=== PATIENT | female | born 1955 | race Caucasian/White ===

== ENCOUNTER 2016-06-06 09:52 | Inpatient (IN) | payer OTHER ==
[~2016-06-06] VITALS: Ht 154.9 cm; Wt 65.0 kg
[2016-06-06] VITALS (29 sets, daily range): BP systolic 128–166; BP diastolic 60–98; PULSE 71–94; RESP 12–21; Ht 154.9 cm; Wt 65.0 kg
[~2016-06-06 09:52] MED LIST: ACET500C5 PO; ASPI-664 PO; IBUP400T22 PO; MTF1000T PO; NPH,100V SQ; NPH,100V10 SQ; QUIN10TA PO; SUCCINYLCHOLINE CHLORIDE 100 MG/5 ML SYG IV ONE
[2016-06-06] MEDS ORDERED: PROPOFOL 20 ML ONE (12:33)
[2016-06-06] MEDS ORDERED: MIDAZOLAM 1 MG/ML 2 ML INJ ONE (12:33)
[2016-06-06] MEDS ORDERED: CEFAZOLIN 1 GM INJ ONE (12:58)
[2016-06-06] MEDS ORDERED: ONDANSETRON 4 MG INJ ONE (12:59)
[2016-06-06] MEDS ORDERED: FAMOTIDINE 20 MG INJ ONE (12:59)
[2016-06-06] MEDS ORDERED: PHENYLephrine (100 MCG/ML) 5ML SYG ONE (13:02)
[2016-06-06] MEDS ORDERED: EPHEDrine SULFATE 50 MG/5 ML SYG ONE (13:21)
[2016-06-06] MEDS ORDERED: LABETALOL HCL 20MG INJ ONE (13:32)
[2016-06-06] MEDS ORDERED: D5W-0.45 NACL + KCL 20 MEQ 1,000 ML IV SCH (13:56)
[2016-06-06] MEDS ORDERED: ACETAMINOPHEN 1000MG/100ML IV 100 ML IVPB PRN (14:00)
[2016-06-06] MEDS ORDERED: ONDANSETRON 4 MG INJ IV PRN (14:00)
[2016-06-06] MEDS ORDERED: morphine 2 MG INJ IV PRN (14:00)
--- NOTE | 2016-06-06 14:15 | OPR ---
DATE OF OPERATION: 06/06/2016 PREOPERATIVE DIAGNOSIS: Locally advanced left breast cancer. POSTOPERATIVE DIAGNOSIS: Locally advanced left breast cancer. OPERATION PERFORMED: Left modified radical mastectomy. ANESTHESIA: General. ANESTHESIOLOGIST: Shun Graham DO SURGEON: Juan Pablo Tan MD BULK TRUCK DRIVER: Yayo Song MD INDICATIONS FOR PROCEDURE: The patient is a 61-year-old female who presented with a large mass in h er left breast. Workup including biopsy revealed a large cancer. The patient was offered neoadjuva nt chemotherapy, but did not wish to proceed in that fashion. Therefore, she was scheduled for left modified radical mastectomy and she consented. DESCRIPTION OF PROCEDURE: The patient was brought to the operating theater, placed under general en dotracheal tube anesthesia. The left breast and axillary region was prepped and draped in usual shana rile fashion. Planned elliptical incision around the large palpable mass including the nipple areol ar complex was demarcated with marking pen and carried out with 15 blade scalpel. Subcutaneous tiss ue was dissected with cautery. [place] clamps were used to elevate the skin edges and skin flap s were created sequentially using cautery, first to the clavicle superiorly then to the sternal bord er medially to the inframammary fold, inferiorly and laterally until latissimus dorsi muscle was antonio ntified throughout its course. Mastectomy then took place from medial to lateral using cautery. At the border of the pectoralis major muscle, the pectoralis muscle was identified and the clavipector al fascia was incised with blunt dissection along the chest wall. The long thoracic nerve was ident ified and kept out of harm's way. More superiorly, the axillary vein was identified and dissected f rom medial to lateral. Subsequently, the thoracodorsal neurovascular bundle was identified in its u sual anatomic location and kept out of harm's way. Node bearing tissue between the long thoracic ne rve and thoracodorsal nerve was meticulously harvested using the LigaSure device. Final connective tissue attachments at the latissimus dorsi muscle were then transected with cautery. Specimen was o riented and sent for permanent pathologic analysis. The wound was irrigated. Minimal bleeding was controlled with cautery. Two #10 flat Rafael-Dorado drains were then brought through the left mid a xillary line. One was cut to size and laid within the axilla, the other was laid over the pectorali s major muscle. Both drains were secured in place with 2-0 nylon suture in the standard fashion. T he final irrigation and inspection took place. Some redundant skin at the lateral aspect of the inc ision was excised and the skin was then closed with a deep dermal layer of 4-0 Vicryl sutures in int errupted fashion, followed by final skin approximation with 4-0 Vicryl sutures in subcuticular fashi on. Benzoin and Steri-Strips were then applied. The patient tolerated the procedure well. The est imated blood loss was 100 mL. There were no complications and the patient was transported in stable condition to the recovery room where circumferential compression wrap was applied. Dictated By: JUAN PABLO TAN MD TL/NTS Conf#: [id number] DID#: [id number] CC: YAYO SONG MD;*EndCC*
[2016-06-06] MEDS ORDERED: MEPERIDINE 25 MG INJ IV PRN (14:30)
[2016-06-06] MEDS ORDERED: HYDROmorphONE (0.2 MG/ML) 10ML SYG IV PRN ×2 (14:30)
[2016-06-06] MEDS ORDERED: PROCHLORPERAZINE 10 MG INJ IV PRN (14:30)
[2016-06-06] MEDS ORDERED: KETOROLAC 30 MG INJ IV ONE (14:30)
[2016-06-06] MEDS ORDERED: HALOPERIDOL 5 MG INJ IV PRN (14:30)
[2016-06-06] MEDS ORDERED: hydrALAzine 20 MG INJ IV PRN (14:30)
[2016-06-06] MEDS: INSULIN ASPART [NOVOLOG] 3 ML PEN SC SCH ×2 (17:55→21:48)
[2016-06-06] MEDS ORDERED: DEXTROSE 50% 50 ML SYRINGE IV PRN ×2 (18:00)
[2016-06-06] MEDS ORDERED: HYDROCODONE/APAP (5/325) TAB PO PRN (18:00)
[2016-06-06] MEDS ORDERED: GLUCOSE GEL 15 GRAM TUBE PO PRN ×2 (18:00)
[2016-06-06] MEDS ORDERED: GLUCAGON 1 MG INJ IM PRN (18:00)
[2016-06-06] MEDS ORDERED: GLUCOSE GEL 15 GRAM TUBE BUCCAL PRN (18:00)
--- NOTE | 2016-06-06 18:41 | HP ---
DATE OF ADMISSION: 06/06/2016 CHIEF COMPLAINT AND HISTORY OF PRESENT ILLNESS: The patient is a 61-year-old female with history of hypertension, diabetes and locally advanced left breast cancer. The patient was seen by Dr. Tan as an outpatient and was brought into hospital for left modified radical mastectomy. The patient po stoperatively has significant chest wall pain. The patient is being admitted for further evaluation and management. The patient denied any nausea, vomiting. No recent history of fever or chills. N o history of dysuria or hematuria, no history of headache, dizziness or syncope. No history of pare sthesias or weakness in any extremities. No history of acute skin rash or any joint swelling. REVIEW OF SYSTEMS: Were unremarkable. PAST SURGICAL HISTORY: None. ALLERGIES: NONE. FAMILY HISTORY: Patient's mother had stomach cancer. MEDICATIONS: List reviewed. PHYSICAL EXAMINATION: GENERAL: The patient is awake, alert. VITAL SIGNS: Temperature 97.9, pulse 88, blood pressure 150/72, O2 saturation 100% on room air, res pirations 16. HEENT: Conjunctivae and lids are normal. Oropharynx clear. NECK: Supple. No mass, no thyromegaly. LUNGS: Clear to auscultation. CARDIOVASCULAR: S1, S2 normal, no murmur. ABDOMEN: Soft, nondistended, nontender. Bowel sounds positive. EXTREMITIES: No leg edema. NEUROLOGIC: The patient is awake, alert, fairly oriented with no gross focal deficit. LABORATORY DATA: Sodium 136, potassium 4.5, BUN 13, creatinine 0.5, glucose 234. IMPRESSION: 1. Locally advanced left breast cancer status post modified radical mastectomy. 2. Hypertension. 3. Diabetes mellitus. PLAN: The patient admitted on medical floor. Patient will be started on Lantus as well as sliding scale insulin. The patient will be continued on metformin. We will also continue МАРИНА inhibitor. S CD for DVT prophylaxis. The patient will be started on Tylenol, [place] and IV morphine for pain cont rol, depending upon severity. Plan of care discussed with the patient's nurse. Dictated By: SONA WINSLOW/NTS Conf#: [id number] DID#: [id number]
[2016-06-06] MEDS: metFORMIN 500 MG TAB PO SCH (18:57)
[2016-06-06] MEDS: 1/2 NS + KCL 20 MEQ 1,000 ML IV SCH (18:57)
[2016-06-06] MEDS ORDERED: NPH, HUMAN INSULIN ISOPHANE 3ML VIAL SC SCH (21:00)
[2016-06-06] MEDS: INSULIN GLARGINE [LANtus] 3 ML PEN SC SCH (21:48)
[2016-06-07 00:05] VITALS: BP 150/65; PULSE 87; RESP 20
[2016-06-07] MEDS ORDERED: ACCUCHECK XX SCH (02:00)
[2016-06-07 05:23] LABS: ADD SCAN DIFF NO
[2016-06-07 05:33] LABS: BASOPHIL # 0.1 10^3/ul (0.0-0.1); BASOPHILS % 0.5 % (0.0-2.0); EOSINOPHILS # 0.3 10^3/ul (0.0-0.5); EOSINOPHILS % 2.4 % (0.0-7.0); HEMATOCRIT 35.4 % (37.0-47.0); HEMOGLOBIN 12.1 g/dl (12.0-16.0); LYMPHOCYTES # 3.3 10^3/ul (0.8-2.9); MEAN CORPUSCULAR HEMOGLOBIN 29.3 pg (29.0-33.0); MEAN CORPUSCULAR HGB CONC 34.2 g/dl (32.0-37.0); MEAN CORPUSCULAR VOLUME 85.7 fl (82.0-101.0); MEAN PLATELET VOLUME 11.2 fl (7.4-10.4); MONOCYTE # 0.6 10^3/ul (0.3-0.9); MONOCYTES % 5.7 % (0.0-11.0); NEUTROPHIL # 6.7 10^3/ul (1.6-7.5); NEUTROPHILS % 61.1 % (39.0-77.0); PLATELET COUNT 209 10^3/UL (140-415); RED BLOOD COUNT 4.13 10^6/ul (4.20-5.40); RED CELL DISTRIBUTION WIDTH 12.2 % (11.5-14.5); WHITE BLOOD COUNT 10.9 10^3/ul (4.8-10.8)
[2016-06-07 05:43] VITALS: BP 116/66; PULSE 77; RESP 18
[2016-06-07 05:52] LABS: POTASSIUM 4.2 mmol/L (3.5-5.1)
[2016-06-07 05:55] LABS: CREATININE 0.49 mg/dl (0.44-1.00)
[2016-06-07 05:56] LABS: CALCIUM 8.8 mg/dl (8.4-10.2)
[2016-06-07 07:00] VITALS: BP 115/59; RESP 18
[2016-06-07] MEDS: 1/2 NS + KCL 20 MEQ 1,000 ML IV SCH ×2 (08:50→20:40)
[2016-06-07] MEDS: metFORMIN 500 MG TAB PO SCH ×2 (08:56→18:06)
[2016-06-07] MEDS ORDERED: BENAZEPRIL 20 MG TAB PO SCH (09:00)
[2016-06-07] MEDS ORDERED: ASPIRIN (EC) 81 MG TAB PO SCH (09:00)
[2016-06-07] MEDS: INSULIN ASPART [NOVOLOG] 3 ML PEN SC SCH ×4 (09:05→21:16)
--- NOTE | 2016-06-07 14:04 | PN ---
DATE: 06/07/2016 Today is postop day #1, postop left modified radical mastectomy with axillary dissection SUBJECTIVE: The patient does not have that much of complaint from the chest, but she is having some pain in right upper quadrant. No nausea, no vomiting. Tolerated diet. OBJECTIVE: VITAL SIGNS: Temperature 98.7, heart rate 80, respirations 18, blood pressure 115/59, saturation 97 % on room air. Rafael-Dorado drain #1 has drained 180 mL, #2 has drained 120 mL since operation. It is colorless, serosanguineous. HEART: Regular. LUNGS: Clear. CHEST: The dressing is not that tight. ABDOMEN: Soft. Right upper quadrant, mariana is some tenderness on deep pressure (probably positive M urphy sign). EXTREMITIES: No pitting edema, no calf tenderness. ASSESSMENT: A 61-year-old with modified radical mastectomy and axillary dissection for locally adva nced cancer of the left breast, stable today complaining of right upper quadrant abdominal pain. PLAN: We are going to get a stat ultrasound of the right upper quadrant to make sure the patient do es not have cholecystitis. If that resolves, patient can be discharged home today and follow up wit h Dr. Tan in his office. The patient will be instructed by the nurses how to empty the Rafael-Pr att and how to measure the drainage and record it on a piece of paper every night or whenever it is needed to be done. When she goes back to Dr. Tan' office, to take the detailed recording of the d rainage. Dictated By: DEEPA ARZOLA/MANDY Conf#: [id number] DID#: [id number]
--- NOTE | 2016-06-07 17:55 | PN ---
Date/Time of Note Date/Time of Note DATE: 06/07/16 TIME: 17:51 Assessment/Plan VTE Prophylaxis VTE Prophylaxis Intervention: SCD's Lines/Catheters [facility] Peripheral IV Urinary Cath still in place: No Assessment/Plan Assessment/Plan 1. Locally advanced left breast cancer status post modified radical mastectomy. 2. Hypertension. Continue benazepril 3. Diabetes mellitus. Continue metformin, Lantus and NovoLog. 4. Abdominal pain, pending abdominal ultrasound. Further recommendations based on clinical course. Plan of care discussed Dr. Costa. Subjective 24 Hr Interval Summary Free Text/Dictation Patient's complains of abdominal pain, pending abdominal ultrasound. Patient denies any nausea vomiting. Exam/Review of Systems Vital Signs Vitals Vital Signs Date Time Temp Pulse Resp B/P Pulse Ox O2 Delivery O2 Flow Rate FiO2 06/07/16 07:00 98.7 80 18 115/59 97 06/07/16 05:43 Room Air 06/07/16 00:05 2.0 Intake and Output 06/06/16 06/06/16 06/07/16 15:00 23:00 07:00 Intake Total 1200 ml 1120 ml Output Total 90 ml 170 ml 90 ml Balance 1110 ml -170 ml 1030 ml Exam GENERAL: The patient is awake, alert. HEENT: Conjunctivae and lids are normal. NECK: Supple. No mass, no thyromegaly. LUNGS: Clear to auscultation. CARDIOVASCULAR: S1, S2 normal, no murmur. ABDOMEN: Soft, nondistended, nontender. Bowel sounds positive. EXTREMITIES: No leg edema. NEUROLOGIC: The patient is awake, alert. Results Result Diagram: 06/07/16 0425 06/07/16 0445 Results 24 hrs Laboratory Tests Test 06/06/16 21:44 06/07/16 01:58 06/07/16 04:25 06/07/16 04:45 Bedside Glucose 303 H 187 Basophils # 0.1 Basophils % 0.5 Eosinophils # 0.3 Eosinophils % 2.4 Hematocrit 35.4 L Hemoglobin 12.1 Lymphocytes # 3.3 H Lymphocytes % 30.0 Mean Corpuscular Hemoglobin 29.3 Mean Corpuscular Hemoglobin Concent 34.2 Mean Corpuscular Volume 85.7 Mean Platelet Volume 11.2 H Monocytes # 0.6 Monocytes % 5.7 Neutrophils # 6.7 Neutrophils % 61.1 Nucleated Red Blood Cells # 0.0 Nucleated Red Blood Cells % 0.0 Platelet Count 209 Red Blood Count 4.13 L Red Cell Distribution Width 12.2 White Blood Count 10.9 H Anion Gap 13 Blood Urea Nitrogen 9 Calcium Level 8.8 Carbon Dioxide Level 27 Chloride Level 104 Creatinine 0.49 Glucose Level 162 Potassium Level 4.2 Sodium Level 140 Test 06/07/16 08:49 06/07/16 11:46 Bedside Glucose 171 267 H Medications Medications Current Medications Ondansetron HCl (Zofran Inj) 4 mg Q6H PRN IV NAUSEA AND/OR VOMITING Last administered on 06/06/16 15:09; Admin Dose 4 MG; Start 06/06/16 at 14:00 Morphine Sulfate 2 mg 2 mg Q1H PRN IV PAIN; Start 06/06/16 at 14:00 Acetaminophen 100 ml @ 400 mls/hr Q6H PRN IVPB PAIN; Start 06/06/16 at 14:00 Potassium Chloride/Sodium Chloride (1/2 NS + KCl 20 Meq) 1,000 ml @ 75 mls/hr [id number] IV Last administered on 06/07/16 08:50; Admin Dose 75 MLS/HR; Start at 18:00 Aspirin (Halfprin) 81 mg DAILY PO Last administered on 06/07/16 08:56; Admin Dose 81 MG; Start 06/07/16 at 09:00 Benazepril HCl (Lotensin) 20 mg DAILY PO Last administered on 06/07/16 08:57; Admin Dose 20 MG; Start 06/07/16 at 09:00 Miscellaneous Information 1 ea NOTE XX ; Start 06/06/16 at 18:00 Glucose (Glutose) 15 gm Q15M PRN PO DECREASED GLUCOSE; Start 06/06/16 at 18:00 Glucose (Glutose) 22.5 gm Q15M PRN PO DECREASED GLUCOSE; Start 06/06/16 at 18: 00 Dextrose (D50w Syringe) 25 ml Q15M PRN IV DECREASED GLUCOSE; Start 06/06/16 at 18:00 Dextrose (D50w Syringe) 50 ml Q15M PRN IV DECREASED GLUCOSE; Start 06/06/16 at 18:00 Glucagon (Glucagen) 1 mg Q15M PRN IM DECREASED GLUCOSE; Start 06/06/16 at 18:00 Glucose (Glutose) 15 gm Q15M PRN BUCCAL DECREASED GLUCOSE; Start 06/06/16 at 18 :00 Insulin Glargine (Lantus) 30 unit DAILY@20 SC Last administered on 06/06/16 21 :48; Admin Dose 30 UNIT; Start 06/06/16 at 20:00 Diagnostic Test (Pha) (Accucheck) 1 ea 02 XX Last administered on 06/07/16 02: 10; Admin Dose 1 EA; Start 06/07/16 at 02:00 Acetaminophen/ Hydrocodone Bitart ([place] (5/325)) 1 tab Q4H PRN PO PAIN LEVEL 4 -6; Start 06/06/16 at 18:00 CYNTHIA LAGUNAS Jun 07, 2016 17:55
--- NOTE | 2016-06-07 18:03 | RADRPT ---
PROCEDURE: US Abdomen (right upper quadrant). CLINICAL INDICATION: Right upper quadrant abdomen pain. TECHNIQUE: Multiple real-time longitudinal and transverse images of the right upper quadrant of th e abdomen were acquired utilizing a curved array transducer. Images were reviewed on a high-resoluti on PACS workstation. COMPARISON: None FINDINGS: The liver is normal in size and echogenicity. There is no focal hepatic lesion. Color Doppler and pulsed Doppler sonography demonstrate normal an tegrade flow in the portal vein. The gallbladder is normal with no stones or wall thickening. There is no pericholecystic fluid franco ection. The bile ducts are normal with the common bile duct measuring 4.6 mm in diameter. The visualized portions of the pancreas are unremarkable with obscuration of the tail of the pancrea s. No free fluid is present. The right kidney measures 10.1 cm. There is normal echogenicity of the right kidney. There is no perinephric fluid collection. No hydronephrosis, mass, or calculus is seen. IMPRESSION: 1. Unremarkable right upper quadrant abdomen ultrasound. RPTAT: QQ .Twan Sierra MD, MD Date Time Electronically viewed and signed by .Twan Sierra MD, on 06/07/2016 18:03 .R/
[2016-06-07] MEDS: INSULIN GLARGINE [LANtus] 3 ML PEN SC SCH (21:17)
--- NOTE | 2016-06-09 21:17 | DS ---
DATE OF ADMISSION: 06/06/2016 DATE OF DISCHARGE: 06/07/2016 FINAL DIAGNOSES: 1. Locally advanced breast cancer status post modified radical mastectomy. 2. Hypertension. 3. Diabetes mellitus. BRIEF HISTORY: The patient is a 61-year-old female with history of hypertension, diabetes, locally advanced left breast cancer. The patient was seen by Dr. Tan as an outpatient and brought to the hospital for left modified radical mastectomy. Postoperative, the patient experienced some signific ant pain and was admitted for further evaluation and management. HOSPITAL COURSE: The patient was given Tylenol, morphine, and [place] p.r.n. for pain and Zofran for nausea. The patient was given Lantus and insulin according to sliding scale, NovoLog insulin. The patient's blood pressure was well controlled. The patient complained of some abdominal pain and gal lbladder ultrasound was ordered by surgeon, which was unremarkable ultrasound of right upper quadran t abdominal. The patient's condition improved. The patient was able to tolerate diet. Denied any nausea or vomiting. Pain was well controlled and patient was discharged home. CONDITION ON DISCHARGE: Hemodynamically stable. ACTIVITY: As patient tolerates. No lifting more than 25 pounds for 6 weeks. DISCHARGE DIET: 1800 ADA, 2 g sodium, low fat, low cholesterol diet. DISCHARGE MEDICATIONS: 1. The patient was given prescriptions for [place] p.r.n. for pain. 2. The patient is to continue on her home medication of metformin. 3. NPH insulin. 4. Quinapril. 5. Aspirin. FOLLOWUP: The patient is instructed to follow up with Dr. Tan in postoperative appointment next w [place]. Interdisciplinary plan of care was established for this patient. Plan of care was discussed with Dr Masoud Go. Dictated By: CYNTHIA LAGUNAS REJOGGER for SONA GO MD SR/NTS Conf#: [id number] DID#: [id number] CC: SHANON TAN MD;*EndCC*
== END 2016-06-07 21:45 | disposition home or self-care (01) | DRG 583 ==
LOC: REC 09:52 → EDSTATUS 12:30 → MS1 16:45
PROVIDERS: ADMIT Surgery Surgical Oncology; ATTEND Surgery Surgical Oncology
PROC: 0HTU0ZZ Resection of Left Breast, Open Approach (ICD-10-PCS; principal; 2016-06-06 12:30)
DX: C50.912 Malignant neoplasm of unspecified site of left female breast (principal); I10 Essential (primary) hypertension; G89.18 Other acute postprocedural pain; E11.9 Type 2 diabetes mellitus without complications
CPT/HCPCS: 76705; 80048; 82962; 85025; 88307; J0330; J0360; J0690; J1170; J1815; J1885; J2250; J2370; J2405; J3010; J3480

== ENCOUNTER 2016-06-21 18:56 | Emergency (ER) | payer OTHER ==
[~2016-06-21] VITALS: Ht 154.9 cm; Wt 65.5 kg
[~2016-06-21 18:56] MED LIST changes: -SUCCINYLCHOLINE CHLORIDE 100 MG/5 ML SYG IV ONE
[2016-06-21 19:01] VITALS: Ht 154.9 cm; Wt 65.5 kg
[2016-06-21] MEDS ORDERED: CEFTRIAXONE 1 GM INJ IM ONE (20:30)
[2016-06-21] MEDS ORDERED: LIDOCAINE 1% (MDV) 20 ML INJ SC ONE (20:30)
[2016-06-21] MEDS ORDERED: IBUPROFEN 600 MG TAB PO ONE (20:30)
[2016-06-21] MEDS ORDERED: HYDROCODONE/APAP (5/325) TAB PO ONE (20:30)
[2016-06-21] MEDS ORDERED: TRIMETHOPRIM/SULFAMETHOX (DS) TAB PO ONE (20:30)
[2016-06-21] MEDS ORDERED: CEPH-443 PO (21:00)
[2016-06-21] MEDS ORDERED: BACTDS PO (21:00)
[2016-06-21] MEDS ORDERED: HYDR-906 PO (21:00)
--- NOTE | 2016-06-21 21:05 | ERD ---
ER Documentation Chief Complaint Date/Time DATE: 06/21/16 TIME: 21:03 Chief Complaint sp left mastectomy 2 weeks ago, c/o pain on left operative site x2 days HPI 7-year-old female presents with redness and some pain to the left mastectomy wound performed [address] Tan. She denies fevers, vomiting, shortness breath or chest pain. She notes the redness and increased pain over the last 2 days. ROS All systems reviewed and are negative except as per history of present illness. Medications Home Meds Active Scripts Cephalexin* (Keflex*) 500 Mg Capsule, 500 MG PO QID for 7 Days, CAP Prov:THUAN BARTHOLOMEW MD 06/21/16 Sulfamethoxazole-Trimethoprim* (Bactrim* DS) 800-160 Mg Tab, 1 TAB PO BID for 7 Days, TAB Prov:THUAN BARTHOLOMEW MD 06/21/16 Hydrocodone/Acetaminophen ([place] 5-325 Tablet) 1 Each Tablet, 1 TAB PO Q6H Y for PAIN, #14 TAB Prov:THUAN BARTHOLOMEW MD 06/21/16 Acetaminophen* (Tylophen*) 500 Mg Capsule, 1 CAP PO Q6H Y for PAIN AND OR ELEVATED TEMP, #20 CAP Prov:MARLEY URBANO 11/19/14 Ibuprofen* (Motrin*) 400 Mg Tab, 400 MG PO Q6 Y for PAIN AND/OR INFLAMMATION, # 20 TAB Prov:MARLEY URBANO 11/19/14 Reported Medications Quinapril Hcl (Accupril) 10 Mg Tablet, 20 MG PO DAILY 06/28/13 Aspirin (Aspirin) 81 Mg Tablet.dr, 81 MG PO DAILY 06/28/13 Nph, Human Insulin Isophane* (Novolin N*) 100 U/Ml Vial, 20 SQ BID, VIAL 06/28/13 Nph, Human Insulin Isophane (Humulin N) 100 Units/Ml Vial, 15 SQ BID, VIAL 06/28/13 Metformin* (Glucophage*) 1,000 Mg Tablet, 1000 MG PO BID 06/28/13 Allergies Allergies: Coded Allergies: No Known Allergies (Unverified Allergy, 06/28/13) PMhx/Soc History of Surgery: Yes (L mastectomy may 2016) Anesthesia Reaction: No Hx Neurological Disorder: No Hx Respiratory Disorders: No Hx Cardiac Disorders: No Hx Psychiatric Problems: No Hx Miscellaneous Medical Probl: Yes (breast CA) Hx Alcohol Use: No Hx Substance Use: No Hx Tobacco Use: No Smoking Status: Never smoker Physical Exam Vitals Vital Signs Date Time Temp Pulse Resp B/P Pulse Ox O2 Delivery O2 Flow Rate FiO2 06/21/16 19:01 99.8 101 20 138/65 98 Physical Exam Const: [] Alert, [id number]. Head: Atraumatic Eyes: Normal Conjunctiva ENT: Normal External Ears, Nose and Mouth. Neck: Full range of motion..~ No meningismus. Resp: Clear to auscultation bilaterally Cardio: Regular rate and rhythm, no murmurs Abd: Soft, non tender, non distended. Normal bowel sounds Skin: No petechiae or rashes. His healing left mastectomy wound with some surrounding redness at the wound edges and extending superiorly on the medial portion of the wound.. There is no dehiscence or active discharge or bleeding or fluctuance. Back: No midline or flank tenderness Ext: No cyanosis, or edema Neur: Awake and alert Psych: Normal Mood and Affect Results 24 hrs Current Medications Medications (Trade) Dose Ordered Sig/Sheila Route PRN Reason Start Time Stop Time Status Last Admin Dose Admin Ceftriaxone Sodium (Rocephin) 1 gm ONCE ONCE IM 06/21/16 20:30 06/21/16 20:31 DC 06/21/16 20:46 Lidocaine (Xylocaine 1% (Mdv) 20 ml) 20 ml ONCE ONCE SC 06/21/16 20:30 06/21/16 20:31 DC 06/21/16 20:46 Ibuprofen (Motrin) 600 mg ONCE ONCE PO 06/21/16 20:30 06/21/16 20:31 DC 06/21/16 20:46 Trimethoprim/ Sulfamethoxazole (Bactrim (Ds)) 1 tab ONCE ONCE PO 06/21/16 20:30 06/21/16 20:31 DC 06/21/16 20:47 Acetaminophen/ Hydrocodone Bitart ([place] (5/325)) 1 tab ONCE ONCE PO 06/21/16 20:30 06/21/16 20:31 DC 06/21/16 20:47 Procedures/MDM Patient presents with signs and symptoms of worsening redness and pain over last 2 days of her left mastectomy performed 2 weeks ago. She appears to have a postoperative wound infection which appears superficial. She was given Rocephin 1 g IM and Bactrim double strength by mouth as well as [place] 5 mg by mouth for pain. She will discharged home with prescription of Bactrim and Keflex and [place] and instructions to follow-up with Dr. Tan as scheduled in the next 2-3 days. Patient should return sooner for fevers, vomiting, shortness breath, chest pain, new or worsening symptoms. There is no evidence of abscess or signs or symptoms to suggest sepsis, acute abdomen, pneumonia, additional causes of pain and redness of the chest wall. Departure Diagnosis: Primary Impression: Post op infection Condition: Stable Patient Instructions: Post Op Wound Check, Infection Additional Instructions: CHEQUE CON MCKEON MIKI ADKINS MAS PRONTO PARA FIEBRE , NUEVA SIMPTOMAS. THUAN BARTHOLOMEW MD Jun 21, 2016 21:05
[2016-06-21 21:42] VITALS: BP 121/57; PULSE 81; RESP 18; TEMP 99
== END 2016-06-21 21:45 | disposition home or self-care (01) ==
LOC: FTE 18:56
DX: T81.4XXA Infection following a procedure, initial encounter (principal); Y82.8 Other medical devices associated with adverse incidents; Z85.3 Personal history of malignant neoplasm of breast; Z79.82 Long term (current) use of aspirin; Z79.84 Long term (current) use of oral hypoglycemic drugs; Z79.4 Long term (current) use of insulin
CPT/HCPCS: 96372; J0696; Z7502; Z7610

== ENCOUNTER 2016-06-27 13:23 | Inpatient (IN) | payer OTHER ==
[2016-06-26] MEDS: SOD CHLORIDE 0.9% 1,000 ML IV SCH (16:30)
[2016-06-27] VITALS (15 sets, daily range): BP systolic 112–162; BP diastolic 56–73; PULSE 70–80; RESP 14–22; Ht 152.4 cm; Wt 63.0 kg
[~2016-06-27] VITALS: Ht 152.4 cm; Wt 63.0 kg
[2016-06-27] MEDS: SOD CHLORIDE 0.9% 1,000 ML IV SCH (05:50)
[~2016-06-27 13:23] MED LIST changes: +BACTDS PO; +CEFAZOLIN 2 GM/50 ML (PMX) 50 ML IVPB SCH; +CEPH-443 PO; +HYDR-906 PO
[2016-06-27 15:05] LABS: ADD SCAN DIFF NO
[2016-06-27 15:13] LABS: INR 1.07; PROTIME 13.9 Sec (12.2-14.2); PT RATIO 1.1
[2016-06-27 15:14] LABS: PARTIAL THROMBOPLASTIN TIME 28.9 Sec (25.0-35.0)
[2016-06-27 15:18] LABS: CREATININE 0.61 mg/dl (0.44-1.00)
[2016-06-27 15:19] LABS: POTASSIUM 5.1 mmol/L (3.5-5.1)
--- NOTE | 2016-06-27 15:30 | RADRPT ---
PROCEDURE: XR Chest. CLINICAL INDICATION: Preoperative study TECHNIQUE: Single AP view of the chest were obtained COMPARISON: None FINDINGS: The heart and mediastinum are within normal limits. The pulmonary vasculature are unremarkable. The aorta is grossly unremarkable. There is no lung consolidation, pleural effusion or pneumothorax. Degenerative changes are seen within the thoracic spine. There is no acute osseous abnormality. IMPRESSION: No acute disease. RPTAT: AA .Shabbir Rodríguez MD, MD Date Time Electronically viewed and signed by .Shabbir Rodríguez MD, MD on 06/27/2016 15:30 .Jeannine/
[2016-06-27 15:39] LABS: BASOPHIL # 0.1 10^3/ul (0.0-0.1); BASOPHILS % 0.6 % (0.0-2.0); EOSINOPHILS # 0.1 10^3/ul (0.0-0.5); EOSINOPHILS % 0.9 % (0.0-7.0); HEMATOCRIT 37.4 % (37.0-47.0); HEMOGLOBIN 12.9 g/dl (12.0-16.0); LYMPHOCYTES % 21.8 % (15.0-51.0); MEAN CORPUSCULAR HEMOGLOBIN 29.3 pg (29.0-33.0); MEAN CORPUSCULAR HGB CONC 34.5 g/dl (32.0-37.0); MEAN PLATELET VOLUME 9.1 fl (7.4-10.4); MONOCYTE # 0.6 10^3/ul (0.3-0.9); MONOCYTES % 6.4 % (0.0-11.0); NEUTROPHIL # 6.3 10^3/ul (1.6-7.5); NEUTROPHILS % 69.9 % (39.0-77.0); PLATELET COUNT 431 10^3/UL (140-415); WHITE BLOOD COUNT 8.9 10^3/ul (4.8-10.8)
[2016-06-27] MEDS ORDERED: PROCHLORPERAZINE 10 MG INJ IV PRN (16:00)
[2016-06-27] MEDS ORDERED: FENTAnyl 50 MCG/ML VIAL IV PRN (16:00)
[2016-06-27] MEDS ORDERED: OXYCODONE/ACETAMINOPHEN (5/325) TAB PO PRN ×2 (16:00)
[2016-06-27] MEDS ORDERED: KETOROLAC 30 MG INJ IV ONE (16:00)
[2016-06-27] MEDS ORDERED: ONDANSETRON 4 MG INJ IV PRN ×2 (16:00→19:30)
[2016-06-27] MEDS ORDERED: INSULIN ASPART [NOVOLOG] 3 ML PEN SC ONE (16:00)
[2016-06-27] MEDS ORDERED: LABETALOL HCL 20MG INJ IV PRN (16:00)
[2016-06-27] MEDS ORDERED: HYDROmorphONE (0.2 MG/ML) 10ML SYG IV PRN ×2 (16:00)
[2016-06-27] MEDS ORDERED: MEPERIDINE 25 MG INJ IV PRN (16:00)
[2016-06-27] MEDS ORDERED: hydrALAzine 20 MG INJ IV PRN (16:00)
[2016-06-27] MEDS ORDERED: DIPHENHYDRAMINE 50 MG INJ IV PRN (16:00)
[2016-06-27] MEDS ORDERED: MIDAZOLAM 1 MG/ML 2 ML INJ ONE (16:49)
[2016-06-27] MEDS ORDERED: LIDOCAINE 2% (SDV) 5 ML INJ ONE (16:49)
[2016-06-27] MEDS ORDERED: PROPOFOL 20 ML ONE (16:49)
[2016-06-27] MEDS ORDERED: FENTAnyl 50 MCG/ML VIAL ONE (16:50)
[2016-06-27] MEDS ORDERED: ONDANSETRON 4 MG INJ ONE (18:43)
[2016-06-27] MEDS ORDERED: METOCLOPRAMIDE 10 MG INJ ONE (18:43)
[2016-06-27] MEDS ORDERED: D5W-0.45 NACL + KCL 20 MEQ 1,000 ML IV SCH (19:05)
--- NOTE | 2016-06-27 19:27 | OPR ---
DATE OF OPERATION: 06/27/2016 PREOPERATIVE DIAGNOSIS: Left chest wall/wound abscess. POSTOPERATIVE DIAGNOSIS: Left chest wall/wound abscess. OPERATION PERFORMED: I and D of left chest wall/wound abscess. ANESTHESIA: General. ANESTHESIOLOGIST: Vida Gómez MD SURGEON: Juan Pablo Tan MD MASTER RIGGER: None. INDICATIONS FOR PROCEDURE: The patient is an unfortunate 61-year-old female who was recently treate d for relatively advanced left breast cancer. She had comorbidity of diabetes, and she presented ap proximately 10 days postop with evidence of a wound infection associated with a chest wall abscess. She was counseled as to need for surgical drainage. She consented and was scheduled for surgery. DESCRIPTION OF PROCEDURE: The patient was brought to the operating theater, placed under general an esthesia. The left chest wall was prepped and draped in usual sterile fashion. The medial aspect o f previous surgical incision was incised. Copious amounts of pus were obtained. The cavity was suc tion evacuated. Counterincision was made laterally, and irrigation of the entire wound cavity took place with a combination of hydrogen peroxide and Betadine. Please note that prior to irrigation, w ound cultures were taken. At this point, a Luis drain was brought through the wound and sutured to itself. The patient tolerated procedure well. The estimated blood loss was 10 mL. There were n o complications. The patient was transported in stable condition to recovery room, where circumfere ntial compression dressing was applied. Dictated By: JUAN PABLO TAN MD TL/NTS Conf#: [id number] DID#: [id number]
[2016-06-27] MEDS ORDERED: morphine 2 MG INJ IV PRN (19:30)
[2016-06-27] MEDS: SOD CHLORIDE 0.45% 1,000 ML IV SCH (22:19)
[2016-06-27] MEDS ORDERED: GLUCOSE GEL 15 GRAM TUBE BUCCAL PRN (22:30)
[2016-06-27] MEDS ORDERED: GLUCAGON 1 MG INJ IM PRN (22:30)
[2016-06-27] MEDS ORDERED: DEXTROSE 50% 50 ML SYRINGE IV PRN ×2 (22:30)
[2016-06-27] MEDS ORDERED: GLUCOSE GEL 15 GRAM TUBE PO PRN ×2 (22:30)
[2016-06-28 00:01] VITALS: BP 132/61; RESP 18
[2016-06-28] MEDS: ACETAMINOPHEN 1000MG/100ML IV 100 ML IVPB PRN ×2 (00:32→10:16)
[2016-06-28] MEDS: PIPER-TAZO 3.375 GM IV (PMX) 100 ML IVPB SCH ×3 (01:18→17:49)
[2016-06-28 05:00] VITALS: BP 148/69; PULSE 74; RESP 18
[2016-06-28 07:22] VITALS: BP 134/63; RESP 18
[2016-06-28] MEDS: SOD CHLORIDE 0.45% 1,000 ML IV SCH ×2 (08:30→17:21)
[2016-06-28] MEDS: INSULIN ASPART [NOVOLOG] 3 ML PEN SC SCH ×4 (08:38→20:40)
[2016-06-28] MEDS ORDERED: INFLUENZA VIRUS VACCINE 0.5 ML (DISPENSING) IM* ONE (09:00)
[2016-06-28] MEDS: DOCUSATE SODIUM 100 MG CAP PO SCH ×2 (10:56→20:37)
--- NOTE | 2016-06-28 12:27 | PN ---
DATE: 06/28/2016 Status post incision and drainage of the chest wall abscess following modified radical mastectomy ab out 2 weeks ago. SUBJECTIVE: Feels better. OBJECTIVE: VITAL SIGNS: Temperature 97.9, 62, 18, 134/73, 97% room air saturation. The dressing was already removed because it was saturated There is no active bleeding. A new steri le dressing was applied and taped to the chest wall. Also, another culture was sent from the distal end of the wound. The [place] drain is in place. ASSESSMENT: Postop day #1, status post incision and drainage of chest wall wound and abscess post mastectomy. PLAN: 1. Continue antibiotics. 2. Keep the patient in house with IV antibiotics. 3. Change dressing p.r.n. and daily. Dictated By: DEEPA ARZOLA/NTS Conf#: [id number] DID#: [id number]
--- NOTE | 2016-06-28 14:08 | HP ---
DATE OF ADMISSION: 06/27/2016 HISTORY OF PRESENT ILLNESS: The patient is a 61-year-old female, known to me from a previo us admission. The patient underwent a left modified radical mastectomy on 06/06/2016. The patient also has a history of diabetes, hypertension and locally advanced left breast cancer. The patient w as seen in a postoperative appointment with Dr. Tan and was noted to have a chest wall abscess and a postoperative wound infection. The patient was brought to the hospital and underwent I and D of the left chest wall and wound abscess. The patient required antibiotics and had significant pain an d was admitted for further evaluation and management. PAST MEDICAL HISTORY: Positive for hypertension and diabetes. PAST SURGICAL HISTORY: Per HPI. FAMILY HISTORY: The patient's mother had gastric cancer. SOCIAL HISTORY: The patient lives at home. The patient denies any tobacco use, denies any illicit drug use, denies any alcohol use. ALLERGIES: NO KNOWN ALLERGIES. HOME MEDICATIONS: Include: 1. Tylenol. 2. Aspirin. 3. [place]. 4. Metformin. 5. NPH 15 units subcutaneous b.i.d. 6. Accupril. REVIEW OF SYSTEMS: A 12-point review of systems was negative unless mentioned in the HPI. PHYSICAL ASSESSMENT: GENERAL: Well-developed, well-nourished female, in no acute distress. VITAL SIGNS: Temperature 97.9, pulse 62, blood pressure 134/63, respiratory rate 18, oxygen saturat ion 97% on room air. HEENT: Head is atraumatic, normocephalic. Pupils are equal, round, react to light and accommodatio n. Oral mucosa is pink and moist. NECK: Supple. No cervical lymphadenopathy, no thyromegaly. CHEST: Lungs clear bilaterally. There are no rhonchi, wheezes or rales noted. The patient has a l eft chest dry, clean and intact dressing. CARDIOVASCULAR: Normal S1, S2. No murmurs, gallops, clicks, or rubs noted. ABDOMEN: Round, soft, nondistended, nontender. Bowel sounds are present in all 4 quadrants. There is no guarding or rebound tenderness. EXTREMITIES: There is no edema, clubbing or cyanosis. Pulses are equal bilaterally at 2+. SKIN: There is no rash or petechiae noted. NEUROLOGIC: The patient is awake, alert and oriented x4. No focal deficits noted. Motor strength is 5/5 in all extremities. LABORATORY DATA: On admission CBC, white blood cells 8.9, hemoglobin 12.9, hematocrit 37.4, platele ts 431. Chemistry: Sodium is 137, potassium 5.1, chloride 97, carbon dioxide 27, anion gap 18, BUN is 15, creatinine 0.62, glucose 173. IMAGING: Chest x-ray, with no acute disease. ASSESSMENT AND PLAN: 1. Chest wall abscess, status post incision and drainage of the left chest wall and wound abscess. Will continue to follow up surgical recommendations. We will ask Dr. Briggs to see the patient in i nfectious disease consultation. Continue antibiotics and dressing changes. 2. Status post left modified radical mastectomy on 06/06/2016. 3. Hypertension. Will continue the patient's antihypertensive medications from home. Continue hyd ralazine p.r.n. for a systolic blood pressure above 170. 4. Diabetes mellitus type 2. Will continue the patient on NovoLog per moderate algorithm sliding s ephraim. 5. Will continue morphine and Tylenol p.r.n. for pain and Zofran p.r.n. for nausea Further recommendations based on clinical course. Plan of care discussed with Dr. Go. Dictated By: CYNTHIA LAGUNAS DEBONING TEAM LEADER for SONA GO MD SR/NTS Conf#: [id number] DID#: [id number]
[2016-06-28 19:00] VITALS: BP 167/85; RESP 19
[2016-06-28] MEDS ORDERED: SENNA TAB PO PRN (21:30)
[2016-06-28] MEDS: LISINOPRIL 20 MG TAB PO SCH (21:33)
[2016-06-28 23:30] VITALS: BP 138/79; RESP 18
[2016-06-29] MEDS: PIPER-TAZO 3.375 GM IV (PMX) 100 ML IVPB SCH ×3 (01:32→18:46)
[2016-06-29] MEDS: SOD CHLORIDE 0.45% 1,000 ML IV SCH ×2 (04:30→14:09)
[2016-06-29 05:06] LABS: ADD SCAN DIFF NO
[2016-06-29 05:21] LABS: BASOPHIL # 0.1 10^3/ul (0.0-0.1); BASOPHILS % 0.7 % (0.0-2.0); EOSINOPHILS # 0.2 10^3/ul (0.0-0.5); EOSINOPHILS % 3.1 % (0.0-7.0); HEMATOCRIT 36.4 % (37.0-47.0); HEMOGLOBIN 12.2 g/dl (12.0-16.0); LYMPHOCYTES # 2.5 10^3/ul (0.8-2.9); LYMPHOCYTES % 35.1 % (15.0-51.0); MEAN CORPUSCULAR HEMOGLOBIN 29.1 pg (29.0-33.0); MEAN CORPUSCULAR HGB CONC 33.5 g/dl (32.0-37.0); MEAN CORPUSCULAR VOLUME 86.9 fl (82.0-101.0); MEAN PLATELET VOLUME 9.7 fl (7.4-10.4); MONOCYTE # 0.6 10^3/ul (0.3-0.9); MONOCYTES % 8.1 % (0.0-11.0); NEUTROPHIL # 3.7 10^3/ul (1.6-7.5); NEUTROPHILS % 52.6 % (39.0-77.0); PLATELET COUNT 391 10^3/UL (140-415); RED BLOOD COUNT 4.19 10^6/ul (4.20-5.40); RED CELL DISTRIBUTION WIDTH 12.2 % (11.5-14.5)
[2016-06-29 06:32] VITALS: BP 147/70; PULSE 76; RESP 18
[2016-06-29] MEDS: ACETAMINOPHEN 1000MG/100ML IV 100 ML IVPB PRN ×2 (06:50→21:20)
[2016-06-29 08:16] VITALS: BP_SYST 133; BP_DIAS 17; BP_DIAS 77; RESP 18
[2016-06-29] MEDS: DOCUSATE SODIUM 100 MG CAP PO SCH ×2 (08:25→21:00)
[2016-06-29] MEDS: LISINOPRIL 20 MG TAB PO SCH (08:26)
[2016-06-29] MEDS: INSULIN ASPART [NOVOLOG] 3 ML PEN SC SCH ×4 (08:28→20:14)
--- NOTE | 2016-06-29 12:27 | PN ---
Date/Time of Note Date/Time of Note DATE: 06/29/16 TIME: 12:27 Assessment/Plan VTE Prophylaxis VTE Prophylaxis Intervention: other Lines/Catheters IV Catheter Type (from [facility]): Peripheral IV Urinary Cath still in place: No Assessment/Plan Chief Complaint/Hosp Course 1. Chest wall abscess, status post incision and drainage of the left chest wall and wound abscess. Will continue to follow up surgical recommendations. We will ask Dr. Briggs to see the patient in infectious disease consultation. Continue antibiotics and dressing changes. 2. Status post left modified radical mastectomy on 06/06/2016. 3. Hypertension. Will continue the patient's antihypertensive medications from home. Continue hydralazine p.r.n. for a systolic blood pressure above 170. 4. Diabetes mellitus type 2. Will continue the patient on NovoLog per moderate algorithm sliding scale. 5. Will continue morphine and Tylenol p.r.n. for pain and Zofran p.r.n. for nausea Problems: Subjective 24 Hr Interval Summary Free Text/Dictation Patient has no complaints Exam/Review of Systems Vital Signs Vitals Vital Signs Date Time Temp Pulse Resp B/P Pulse Ox O2 Delivery O2 Flow Rate FiO2 06/29/16 08:16 98.0 64 18 133/77 98 06/29/16 06:32 Room Air 06/27/16 19:25 6.0 Intake and Output 06/28/16 06/28/16 06/29/16 15:00 23:00 07:00 Intake Total 800 ml 1580 ml 1850 ml Output Total 1200 ml Balance 800 ml 1580 ml 650 ml Exam Constitutional: well developed Head: atraumatic, normocephalic Neck: supple Respiratory: diminished breath sounds Cardiovascular: regular rate and rhythm Gastrointestinal: non-tender, soft Results Result Diagram: 06/29/16 0415 06/27/16 1500 Results 24 hrs Laboratory Tests Test 06/28/16 14:08 06/28/16 17:24 06/28/16 20:13 06/29/16 01:31 Bedside Glucose 248 H 179 257 H 204 Test 06/29/16 04:15 06/29/16 07:40 06/29/16 11:55 Basophils # 0.1 Basophils % 0.7 Eosinophils # 0.2 Eosinophils % 3.1 Hematocrit 36.4 L Hemoglobin 12.2 Lymphocytes # 2.5 Lymphocytes % 35.1 Mean Corpuscular Hemoglobin 29.1 Mean Corpuscular Hemoglobin Concent 33.5 Mean Corpuscular Volume 86.9 Mean Platelet Volume 9.7 Monocytes # 0.6 Monocytes % 8.1 Neutrophils # 3.7 Neutrophils % 52.6 Nucleated Red Blood Cells # 0.0 Nucleated Red Blood Cells % 0.0 Platelet Count 391 Red Blood Count 4.19 L Red Cell Distribution Width 12.2 White Blood Count 7.0 # Bedside Glucose 245 H 337 H Medications Medications Current Medications Ondansetron HCl (Zofran Inj) 4 mg Q6H PRN IV NAUSEA AND/OR VOMITING; Start at 19:30 Morphine Sulfate 2 mg 2 mg Q1H PRN IV PAIN; Start 06/27/16 at 19:30 Acetaminophen 100 ml @ 400 mls/hr Q6H PRN IVPB PAIN Last administered on 06:50; Admin Dose 400 MLS/HR; Start 06/27/16 at 19:30 Piperacillin Sod/ Tazobactam Sod 100 ml @ 25 mls/hr TID@,,18 IVPB Last administered on 06/29/16 12:07; Admin Dose 25 MLS/HR; Start 06/28/16 at 02:00 Sodium Chloride (1/2 NS) 1,000 ml @ 100 mls/hr Q10H IV Last administered on 17:21; Admin Dose 100 MLS/HR; Start 06/27/16 at 22:30 Miscellaneous Information 1 ea NOTE XX ; Start 06/27/16 at 22:30 Glucose (Glutose) 15 gm Q15M PRN PO DECREASED GLUCOSE; Start 06/27/16 at 22:30 Glucose (Glutose) 22.5 gm Q15M PRN PO DECREASED GLUCOSE; Start 06/27/16 at 22: 30 Dextrose (D50w Syringe) 25 ml Q15M PRN IV DECREASED GLUCOSE; Start 06/27/16 at 22:30 Dextrose (D50w Syringe) 50 ml Q15M PRN IV DECREASED GLUCOSE; Start 06/27/16 at 22:30 Glucagon (Glucagen) 1 mg Q15M PRN IM DECREASED GLUCOSE; Start 06/27/16 at 22:30 Glucose (Glutose) 15 gm Q15M PRN BUCCAL DECREASED GLUCOSE; Start 06/27/16 at 22 :30 Docusate Sodium (Colace) 100 mg BID PO Last administered on 06/29/16 08:25; Admin Dose 100 MG; Start 06/28/16 at 11:00 Lisinopril (Zestril) 20 mg DAILY PO Last administered on 06/29/16 08:26; Admin Dose 20 MG; Start 06/28/16 at 21:30 Clonidine (Catapres) 0.1 mg Q6H PRN PO ELEVATED SYSTOLIC BP; Start 06/28/16 at 21:30 Senna (Senokot) 2 tab BID PRN PO CONSTIPATION Last administered on 06/28/16 21 :32; Admin Dose 2 TAB; Start 06/28/16 at 21:30 RAFFI SANTOYO Jun 29, 2016 12:27
--- NOTE | 2016-06-29 15:05 | PN ---
DATE: 06/29/2016 SUBJECTIVE: Feels better. OBJECTIVE: VITAL SIGNS: Temperature 98, heart rate 64, respirations 18, blood pressure 133 /77, saturation 98% on room air. LABORATORY DATA: Blood sugar has been high up to 337. CBC: WBC 7000 with 52% neutrophils. Microbiology shows staphylococcus species, no culture available yet. ASSESSMENT: The patient is a 61-year-old female status post modified radical mastectomy with axillary dissection for advanced cancer. The patient had modified radical mastectomy 3 weeks ago. The patient presented with cellulitis and abscess formation at the site of operation. She was taken to the operating room and drained by Dr. Tan, and culture was sent, antibiotic started. The patient is doing fine so far. IV antibiotic Zosyn. PLAN: Continue IV antibiotics. Infectious disease consultation has been requested. Change dressing daily and p.r.n. Dictated By: DEEPA SONG MD PS/NTS Conf#: [id number] DID#: [id number] MONICA
--- NOTE | 2016-06-29 15:57 | CONS ---
Date/Time of Note Date/Time of Note DATE: 06/29/16 TIME: 15:54 Assessment/Plan Assessment/Plan Chief Complaint/Hosp Course ASSESSMENT Left chest wall abscess s/p I&D Status post left modified radical mastectomy with axillary dissection for advanced cancer 06/06/16 DM HTN Abx: Zosyn Plan: Will start Vanco, continue Zosyn, f/u final cx, f/u surgical rec-s DW DR Regan Problems: Consultation Date/Type/Reason Admit Date/Time Initial Consult Date ID Referring Provider: CYNTHIA LAGUNAS Exam/Review of Systems Vital Signs Vitals Vital Signs Date Time Temp Pulse Resp B/P Pulse Ox O2 Delivery O2 Flow Rate FiO2 06/29/16 08:16 98.0 64 18 133/77 98 06/29/16 06:32 Room Air 06/27/16 19:25 6.0 Intake and Output 06/28/16 06/28/16 06/29/16 15:00 23:00 07:00 Intake Total 800 ml 1580 ml 1850 ml Output Total 1200 ml Balance 800 ml 1580 ml 650 ml Results Result Diagram: 06/29/16 0415 06/27/16 1500 Results 24 hrs Laboratory Tests Test 06/28/16 17:24 06/28/16 20:13 06/29/16 01:31 06/29/16 04:15 Bedside Glucose 179 257 H 204 Basophils # 0.1 Basophils % 0.7 Eosinophils # 0.2 Eosinophils % 3.1 Hematocrit 36.4 L Hemoglobin 12.2 Lymphocytes # 2.5 Lymphocytes % 35.1 Mean Corpuscular Hemoglobin 29.1 Mean Corpuscular Hemoglobin Concent 33.5 Mean Corpuscular Volume 86.9 Mean Platelet Volume 9.7 Monocytes # 0.6 Monocytes % 8.1 Neutrophils # 3.7 Neutrophils % 52.6 Nucleated Red Blood Cells # 0.0 Nucleated Red Blood Cells % 0.0 Platelet Count 391 Red Blood Count 4.19 L Red Cell Distribution Width 12.2 White Blood Count 7.0 # Test 06/29/16 07:40 06/29/16 11:55 Bedside Glucose 245 H 337 H Medications Medications Current Medications Ondansetron HCl (Zofran Inj) 4 mg Q6H PRN IV NAUSEA AND/OR VOMITING; Start at 19:30 Morphine Sulfate 2 mg 2 mg Q1H PRN IV PAIN; Start 06/27/16 at 19:30 Acetaminophen 100 ml @ 400 mls/hr Q6H PRN IVPB PAIN Last administered on 06:50; Admin Dose 400 MLS/HR; Start 06/27/16 at 19:30 Piperacillin Sod/ Tazobactam Sod 100 ml @ 25 mls/hr TID@02,,18 IVPB Last administered on 06/29/16 12:07; Admin Dose 25 MLS/HR; Start 06/28/16 at 02:00 Sodium Chloride (1/2 NS) 1,000 ml @ 100 mls/hr Q10H IV Last administered on 14:09; Admin Dose 100 MLS/HR; Start 06/27/16 at 22:30 Miscellaneous Information 1 ea NOTE XX ; Start 06/27/16 at 22:30 Glucose (Glutose) 15 gm Q15M PRN PO DECREASED GLUCOSE; Start 06/27/16 at 22:30 Glucose (Glutose) 22.5 gm Q15M PRN PO DECREASED GLUCOSE; Start 06/27/16 at 22: 30 Dextrose (D50w Syringe) 25 ml Q15M PRN IV DECREASED GLUCOSE; Start 06/27/16 at 22:30 Dextrose (D50w Syringe) 50 ml Q15M PRN IV DECREASED GLUCOSE; Start 06/27/16 at 22:30 Glucagon (Glucagen) 1 mg Q15M PRN IM DECREASED GLUCOSE; Start 06/27/16 at 22:30 Glucose (Glutose) 15 gm Q15M PRN BUCCAL DECREASED GLUCOSE; Start 06/27/16 at 22 :30 Docusate Sodium (Colace) 100 mg BID PO Last administered on 06/29/16 08:25; Admin Dose 100 MG; Start 06/28/16 at 11:00 Lisinopril (Zestril) 20 mg DAILY PO Last administered on 06/29/16 08:26; Admin Dose 20 MG; Start 06/28/16 at 21:30 Clonidine (Catapres) 0.1 mg Q6H PRN PO ELEVATED SYSTOLIC BP; Start 06/28/16 at 21:30 Senna (Senokot) 2 tab BID PRN PO CONSTIPATION Last administered on 06/28/16 21 :32; Admin Dose 2 TAB; Start 06/28/16 at 21:30 KUWLANT KELLY NP Jun 29, 2016 15:57
[2016-06-29] MEDS ORDERED: VANCOMYCIN IV PER PHARMACY XX SCH (16:00)
[2016-06-29] MEDS: metFORMIN 500 MG TAB PO SCH (17:44)
[2016-06-29] MEDS ORDERED: VANCOMYCIN 1.25 GM in SOD CHLORIDE 0.9% 250 ML IVPB ONE (18:00)
[2016-06-29 19:00] VITALS: BP 160/70; RESP 18
[2016-06-29 23:49] VITALS: BP 155/70; RESP 18
[2016-06-30] MEDS: SOD CHLORIDE 0.45% 1,000 ML IV SCH ×2 (00:30→10:36)
[2016-06-30] MEDS: PIPER-TAZO 3.375 GM IV (PMX) 100 ML IVPB SCH ×2 (01:39→10:36)
[2016-06-30] MEDS ORDERED: VANCOMYCIN 750 MG in SOD CHLORIDE 0.9% 150 ML IVPB SCH (06:00)
[2016-06-30 06:36] VITALS: BP 127/66; PULSE 18; RESP 18
[2016-06-30 08:12] VITALS: BP 134/63; PULSE 58; RESP 16
[2016-06-30] MEDS: DOCUSATE SODIUM 100 MG CAP PO SCH ×2 (08:13→20:23)
[2016-06-30] MEDS: metFORMIN 500 MG TAB PO SCH ×2 (08:13→17:37)
[2016-06-30] MEDS: LISINOPRIL 20 MG TAB PO SCH (08:14)
[2016-06-30 08:51] VITALS: BP 162/71; RESP 16
[2016-06-30] MEDS: INSULIN ASPART [NOVOLOG] 3 ML PEN SC SCH ×4 (08:54→20:25)
--- NOTE | 2016-06-30 12:05 | PN ---
Date/Time of Note Date/Time of Note DATE: 06/30/16 TIME: 12:04 Assessment/Plan VTE Prophylaxis VTE Prophylaxis Intervention: other Lines/Catheters IV [facility]ter Type (from [facility] Peripheral IV Urinary Cath still in place: No Assessment/Plan Chief Complaint/Hosp Course 1. Chest wall abscess, status post incision and drainage of the left chest wall and wound abscess. Will continue to follow up surgical recommendations. We will ask Dr. Briggs to see the patient in infectious disease consultation. Continue antibiotics and dressing changes. 2. Status post left modified radical mastectomy on 06/06/2016. 3. Hypertension. Will continue the patient's antihypertensive medications from home. Continue hydralazine p.r.n. for a systolic blood pressure above 170. 4. Diabetes mellitus type 2. Will continue the patient on NovoLog per moderate algorithm sliding scale. 5. Will continue morphine and Tylenol p.r.n. for pain and Zofran p.r.n. for nausea Problems: Subjective 24 Hr Interval Summary Free Text/Dictation Patient has no complaints Exam/Review of Systems Vital Signs Vitals Vital Signs Date Time Temp Pulse Resp B/P Pulse Ox O2 Delivery O2 Flow Rate FiO2 06/30/16 08:51 98.0 162/71 97 06/30/16 08:12 Room Air 06/27/16 19:25 6.0 Intake and Output 06/29/16 06/29/16 06/30/16 15:00 23:00 07:00 Intake Total 100 ml 2150 ml 2250 ml Output Total 1200 ml 2000 ml Balance 100 ml 950 ml 250 ml Exam Constitutional: well developed Head: atraumatic, normocephalic Neck: supple Respiratory: clear to auscultation Cardiovascular: regular rate and rhythm Gastrointestinal: non-tender, soft Extremities: normal pulses Results Result Diagram: 06/29/16 0415 06/27/16 1500 Results 24 hrs Laboratory Tests Test 06/29/16 17:00 06/29/16 20:08 06/30/16 01:42 Bedside Glucose 244 H 386 H 335 H Medications Medications Current Medications Ondansetron HCl (Zofran Inj) 4 mg Q6H PRN IV NAUSEA AND/OR VOMITING; Start at 19:30 Morphine Sulfate 2 mg 2 mg Q1H PRN IV PAIN; Start 06/27/16 at 19:30 Acetaminophen 100 ml @ 400 mls/hr Q6H PRN IVPB PAIN Last administered on 21:20; Admin Dose 400 MLS/HR; Start 06/27/16 at 19:30 Piperacillin Sod/ Tazobactam Sod 100 ml @ 25 mls/hr TID@02,10,18 IVPB Last administered on 06/30/16 10:36; Admin Dose 25 MLS/HR; Start 06/28/16 at 02:00 Sodium Chloride (1/2 NS) 1,000 ml @ 100 mls/hr Q10H IV Last administered on 10:36; Admin Dose 100 MLS/HR; Start 06/27/16 at 22:30 Miscellaneous Information 1 ea NOTE XX ; Start 06/27/16 at 22:30 Glucose (Glutose) 15 gm Q15M PRN PO DECREASED GLUCOSE; Start 06/27/16 at 22:30 Glucose (Glutose) 22.5 gm Q15M PRN PO DECREASED GLUCOSE; Start 06/27/16 at 22: 30 Dextrose (D50w Syringe) 25 ml Q15M PRN IV DECREASED GLUCOSE; Start 06/27/16 at 22:30 Dextrose (D50w Syringe) 50 ml Q15M PRN IV DECREASED GLUCOSE; Start 06/27/16 at 22:30 Glucagon (Glucagen) 1 mg Q15M PRN IM DECREASED GLUCOSE; Start 06/27/16 at 22:30 Glucose (Glutose) 15 gm Q15M PRN BUCCAL DECREASED GLUCOSE; Start 06/27/16 at 22 :30 Docusate Sodium (Colace) 100 mg BID PO Last administered on 06/30/16 08:13; Admin Dose 100 MG; Start 06/28/16 at 11:00 Lisinopril (Zestril) 20 mg DAILY PO Last administered on 06/30/16 08:14; Admin Dose 20 MG; Start 06/28/16 at 21:30 Clonidine (Catapres) 0.1 mg Q6H PRN PO ELEVATED SYSTOLIC BP; Start 06/28/16 at 21:30 Senna 2 tab 2 tab BID PRN PO CONSTIPATION Last administered on 06/28/16 21:32 ; Admin Dose 2 TAB; Start 06/28/16 at 21:30 Vancomycin HCl/ Sodium Chloride (Vancocin/NS) 150 ml @ 75 mls/hr Q12H IVPB Last administered on 06/30/16t 06:15; Admin Dose 75 MLS/HR; Start 06/30/16 at 06 :00 RAFFI SANTOYO 19, 2017 12:05
[2016-06-30] MEDS: CEFAZOLIN 1 GM/50 ML (PMX) 50 ML IVPB SCH ×2 (17:37→23:22)
[2016-06-30] MEDS: ACYCLOVIR 400 MG TAB PO SCH ×2 (17:45→23:22)
--- NOTE | 2016-06-30 18:30 | PN ---
DATE: 06/30/2016 SUBJECTIVE: Feels better, status post incision and drainage of the left breast abscess, is status p ost left modified radical mastectomy and axillary resection for cancer. OBJECTIVE: VITAL SIGNS: Temperature 98, heart rate 58, respirations 16, blood pressure 162/71, saturation 97% on room air. LABORATORIES: No labs today. Blood sugar 335. DRESSING CHANGE: Wound relatively clean. Still has some brownish discharge. Dressing was changed. ASSESSMENT: The patient with left breast incisional abscess postoperation for modified radical mast ectomy and axillary dissection for cancer. The culture has grown staph. Today, the antibiotic was changed to clindamycin by infectious disease. PLAN: Continue IV antibiotics for as long as is needed and advised by infectious disease. Dictated By: DEEPA SONG MD PS/MANDY Conf#: [id number] DID#: [id number]
--- NOTE | 2016-06-30 18:49 | CONS ---
DATE OF ADMISSION: 06/27/2016 DATE OF CONSULTATION: 06/28/2016 REQUESTING PHYSICIAN: Juan Pablo Tan MD I am seeing this patient for Dr. Ilan Cooper. HISTORY OF PRESENT ILLNESS: The patient is a 61[facility] who is status po stoperative 06/06/2016, left modified radical mastectomy, who presents with swelling, drainage, and abscess of the operative site. At the previously mentioned time, she had excision of an invasive du ctal carcinoma, grade II. There were no lymph nodes involved in 5/5 lymph nodes taken and there was no involvement of margin for this 4 cm tumor. The patient had noted drainage recently without feve r or chills. She was admitted to the hospital for further evaluation and treatment. Her white coun t was 8900, hemoglobin 12.2 grams. It was noted at that time that she had a crusting lesion on her upper lip involving the upper limbus of the mucous membrane and the skin of the left upper lip. She said that she has had an outbreak about a year or two of this before. The patient had culture of t he drainage, which initially grew Staphylococcus species and then grew MSSA, which was resistant to Bactrim and penicillin and sensitive to all the other anti-staphylococcal drugs tested. When she ca me into the hospital, she was begun treatment with vancomycin and Zosyn. PAST MEDICAL HISTORY: Diabetes, hypertension. ALLERGIES: SHE HAS NO KNOWN ALLERGIES. MEDICATIONS: Consist of: 1. Lisinopril 20 mg p.o. daily. 2. Docusate sodium 100 mg b.i.d. 3. Aspartate insulin with meals subcutaneously. 4. Metformin 500 mg b.i.d. with meals. 5. Acidophilus 3 times a day 1 tablet. REVIEW OF SYSTEMS: Taken in detail and is essentially negative except for diabetes and hypertension and herpes labialis. PHYSICAL EXAMINATION: GENERAL: A well-developed, chronically ill-appearing female, lying in bed with the head of her bed elevated 30 degrees. HEENT: She has a linear crusting lesion straddling the border of the mucous membrane and skin of he r left side of her upper lip. The mouth has moist mucous membranes. NECK: There is no jugular venous distention. CHEST: Clear to auscultation. The patient has a bulky bandage with a large Argueta catheter tube royal ining an operative wound entering at the anterior portion of the lower axilla into the operative pramod ast cavity. There is a large amount of serosanguineous drainage on the bandage. ABDOMEN: Soft. No palpable organs or masses. EXTREMITIES: Reveal no edema, cyanosis, or clubbing. INITIAL IMPRESSION: 1. Probable methicillin-sensitive Staphylococcus aureus abscess, left breast. 2. Operative wound infection status postoperative mastectomy for invasive ductal carcinoma, grade I I. 3. Diabetes mellitus. 4. Hypertension. RECOMMENDATIONS: After the cultures have been clarified, I would treat the patient with intravenous cefazolin 1 gram IV q.8h. and then continue for a total of 2 to 3 weeks after discharge with Keflex 250 mg q.i.d. I recommend treating the herpetic lesion with acyclovir 400 mg 2 to 3 times a day fo r 7 days and I gave the patient a prescription for a larger number should she have a recurrent outbr eak. Dictated By: Lana DE LA ROSA MD for ILAN COOPER MD EC/NTS Conf#: [id number] DID#: [id number] CC: JUAN PABLO TAN MD;*EndCC*
--- NOTE | 2016-06-30 18:50 | PN ---
DATE: 06/30/2016 SUBJECTIVE: No acute changes overnight. The patient is alert, looks comfortable. Denies pain, dis comfort. No fevers. LABS: No labs. MICROBIOLOGY: Left breast wound culture growing staph species, resistant only to penicillin G and B actrim. ANTIMICROBIALS: The patient is on: 1. Vancomycin. 2. Zosyn. PHYSICAL EXAMINATION: GENERAL: This is a well-nourished, well-developed, elderly woman who is alert, in no distr ess. HEENT: Head atraumatic, normocephalic. Sclerae anicteric. Buccal mucosa pink. NECK: Supple. CHEST: Rise symmetrical. Breath sounds clear. HEART: S1, S2. ABDOMEN: Soft, bowel tones present. EXTREMITIES: Without cyanosis. SKIN: With left breast dressing intact. ASSESSMENT: 1. Left chest wall abscess, status post incision and drainage. 2. Status post left modified radical mastectomy with axillary dissection for advanced cancer on . 3. Diabetes. 4. Hypertension. PLAN: The patient remains stable. She is being followed by Dr. Regan and we are going to change a ntibiotics to IV clindamycin. Add probiotics. Continue management as per primary team and consulta nts. Dictated By: KULWANT KELLY OPERATING SYSTEMS PROGRAMMER for ABNER VAZQUEZ/MANDY Conf#: [id number] DID#: [id number]
[2016-06-30 19:22] VITALS: BP 162/77; RESP 16
[2016-06-30] MEDS: LACTOBACILLUS CHEW TAB PO SCH (20:23)
[2016-06-30] MEDS ORDERED: CLINDAMYCIN 600 MG/D5W (PMX) 50 ML IVPB SCH (22:00)
[2016-06-30 22:20] VITALS: BP 140/65; RESP 16
[2016-06-30] MEDS: ACETAMINOPHEN 1000MG/100ML IV 100 ML IVPB PRN (22:29)
[2016-07-01 05:06] LABS: ADD SCAN DIFF NO
[2016-07-01 05:17] LABS: BASOPHILS % 0.5 % (0.0-2.0); EOSINOPHILS # 0.3 10^3/ul (0.0-0.5); EOSINOPHILS % 3.3 % (0.0-7.0); HEMATOCRIT 35.3 % (37.0-47.0); LYMPHOCYTES # 2.8 10^3/ul (0.8-2.9); LYMPHOCYTES % 35.6 % (15.0-51.0); MEAN CORPUSCULAR HEMOGLOBIN 29.1 pg (29.0-33.0); MEAN CORPUSCULAR VOLUME 85.7 fl (82.0-101.0); MEAN PLATELET VOLUME 9.8 fl (7.4-10.4); MONOCYTE # 0.4 10^3/ul (0.3-0.9); MONOCYTES % 5.1 % (0.0-11.0); NEUTROPHIL # 4.3 10^3/ul (1.6-7.5); PLATELET COUNT 387 10^3/UL (140-415); RED BLOOD COUNT 4.12 10^6/ul (4.20-5.40); WHITE BLOOD COUNT 7.8 10^3/ul (4.8-10.8)
[2016-07-01 05:32] LABS: POTASSIUM 4.1 mmol/L (3.5-5.1)
[2016-07-01 05:34] LABS: CREATININE 0.42 mg/dl (0.44-1.00)
[2016-07-01 05:35] LABS: CALCIUM 9.5 mg/dl (8.4-10.2)
[2016-07-01] MEDS: CEFAZOLIN 1 GM/50 ML (PMX) 50 ML IVPB SCH ×3 (06:01→21:38)
[2016-07-01] MEDS: INSULIN ASPART [NOVOLOG] 3 ML PEN SC SCH ×5 (08:00→20:44)
[2016-07-01] MEDS: metFORMIN 500 MG TAB PO SCH ×3 (08:00→17:45)
[2016-07-01 08:36] VITALS: BP 145/70; RESP 18
[2016-07-01] MEDS: LISINOPRIL 20 MG TAB PO SCH (09:28)
[2016-07-01] MEDS: ACYCLOVIR 400 MG TAB PO SCH ×3 (09:28→20:41)
[2016-07-01] MEDS: DOCUSATE SODIUM 100 MG CAP PO SCH ×2 (09:28→20:41)
[2016-07-01] MEDS: LACTOBACILLUS CHEW TAB PO SCH ×3 (09:29→20:42)
--- NOTE | 2016-07-01 17:56 | PN ---
DATE: 07/01/2016 SUBJECTIVE: Patient feels better and is receiving antibiotic Ancef which was changed by Dr. Sanabria from infectious disease today. OBJECTIVE VITAL SIGNS: Temperature 98.2, 61, 18, 145/70, 97% on room air. LABORATORY: Fasting blood sugar 231. Sodium, potassium, BUN and creatinine are normal. LABORATORY DATA: WBC 7800 with 55% segmented. ASSESSMENT: Patient is status post modified radical mastectomy and axillary resection about 4 weeks ago. The patient presented to the office with swelling and pain and tenderness and chills and was found to have an abscess of the incisional wound. So, she was taken to the OR by Dr. Tan to have the abscess drained. An incision was made and a drain was placed. The patient is receiving antibio tics. Since Dr. Sanabria, infectious disease colleague, changed with the antibiotic to Ancef. Cultur e has been staph. The patient is to continue antibiotic IV as long as the surgeon recommends it. T hen the patient can be switched to p.o. and be discharged. Dictated By: DEEPA SONG MD PS/NTS Conf#: [id number] DID#: [id number]
--- NOTE | 2016-07-01 18:00 | PN ---
Date/Time of Note Date/Time of Note DATE: 07/01/16 TIME: 17:57 Assessment/Plan VTE Prophylaxis VTE Prophylaxis Intervention: SCD's Lines/Catheters IV [facility] Saline Lock Urinary Cath still in place: No Assessment/Plan Chief Complaint/Hosp Course ASSESSMENT AND PLAN: 1. Chest wall abscess, status post incision and drainage of the left chest wall and wound abscess by Dr Tan. Dr. Briggs is following in infectious disease consultation. Continue antibiotics and dressing changes. 2. Status post left modified radical mastectomy on 06/06/2016. 3. Hypertension. Continue Lisinopril. Continue hydralazine p.r.n. for a systolic blood pressure above 170. 4. Diabetes mellitus type 2. Continue the patient on Lantus and NovoLog per moderate algorithm sliding scale. Further recommendations based on clinical course. Plan of care discussed with Dr. Costa. Problems: Exam/Review of Systems Vital Signs Vitals Vital Signs Date Time Temp Pulse Resp B/P Pulse Ox O2 Delivery O2 Flow Rate FiO2 07/01/16 08:36 98.2 61 18 145/70 97 06/30/16 08:12 Room Air 06/27/16 19:25 6.0 Intake and Output 06/30/16 06/30/16 07/01/16 15:00 23:00 07:00 Intake Total 1750 ml 900 ml Output Total 1200 ml Balance 1750 ml -300 ml Exam PHYSICAL ASSESSMENT: GENERAL: Well-developed, well-nourished female, in no acute distress. HEENT: Head is atraumatic, normocephalic. Pupils are equal, round, react to light and accommodation. Oral mucosa is pink and moist. NECK: Supple. No cervical lymphadenopathy, no thyromegaly. CHEST: Lungs clear bilaterally. There are no rhonchi, wheezes or rales noted. The patient has a left chest dry, clean and intact dressing. CARDIOVASCULAR: Normal S1, S2. No murmurs, gallops, clicks, or rubs noted. ABDOMEN: Round, soft, nondistended, nontender. Bowel sounds are present in all 4 quadrants. There is no guarding or rebound tenderness. EXTREMITIES: There is no edema, clubbing or cyanosis. Pulses are equal bilaterally at 2+. SKIN: There is no rash or petechiae noted. NEUROLOGIC: The patient is awake, alert and oriented x4. Results Result Diagram: 07/01/16 0425 07/01/16 0425 Results 24 hrs Laboratory Tests Test 06/30/16 20:13 07/01/16 02:03 07/01/16 04:25 07/01/16 08:46 Bedside Glucose 229 H 211 247 H Anion Gap 15 Basophils # 0.0 Basophils % 0.5 Blood Urea Nitrogen 9 Calcium Level 9.5 Carbon Dioxide Level 27 Chloride Level 101 Creatinine 0.42 L Eosinophils # 0.3 Eosinophils % 3.3 Glucose Level 231 H Hematocrit 35.3 L Hemoglobin 12.0 Lymphocytes # 2.8 Lymphocytes % 35.6 Mean Corpuscular Hemoglobin 29.1 Mean Corpuscular Hemoglobin Concent 34.0 Mean Corpuscular Volume 85.7 Mean Platelet Volume 9.8 Monocytes # 0.4 Monocytes % 5.1 Neutrophils # 4.3 Neutrophils % 55.0 Nucleated Red Blood Cells # 0.0 Nucleated Red Blood Cells % 0.0 Platelet Count 387 Potassium Level 4.1 Red Blood Count 4.12 L Red Cell Distribution Width 12.0 Sodium Level 139 White Blood Count 7.8 Test 07/01/16 12:39 07/01/16 17:43 Bedside Glucose 277 H 123 Medications Medications Current Medications Ondansetron HCl (Zofran Inj) 4 mg Q6H PRN IV NAUSEA AND/OR VOMITING; Start at 19:30 Morphine Sulfate 2 mg 2 mg Q1H PRN IV PAIN; Start 06/27/16 at 19:30 Acetaminophen (Ofirmev 1000mg/ 100ml Iv) 100 ml @ 400 mls/hr Q6H PRN IVPB PAIN Last administered on 06/30/16t 22:29; Admin Dose 400 MLS/HR; Start at 19:30 Miscellaneous Information 1 ea NOTE XX ; Start 06/27/16 at 22:30 Glucose (Glutose) 15 gm Q15M PRN PO DECREASED GLUCOSE; Start 06/27/16 at 22:30 Glucose (Glutose) 22.5 gm Q15M PRN PO DECREASED GLUCOSE; Start 06/27/16 at 22: 30 Dextrose (D50w Syringe) 25 ml Q15M PRN IV DECREASED GLUCOSE; Start 06/27/16 at 22:30 Dextrose (D50w Syringe) 50 ml Q15M PRN IV DECREASED GLUCOSE; Start 06/27/16 at 22:30 Glucagon (Glucagen) 1 mg Q15M PRN IM DECREASED GLUCOSE; Start 06/27/16 at 22:30 Glucose (Glutose) 15 gm Q15M PRN BUCCAL DECREASED GLUCOSE; Start 06/27/16 at 22 :30 Docusate Sodium (Colace) 100 mg BID PO Last administered on 07/01/16 09:28; Admin Dose 100 MG; Start 06/28/16 at 11:00 Lisinopril (Zestril) 20 mg DAILY PO Last administered on 07/01/16 09:28; Admin Dose 20 MG; Start 06/28/16 at 21:30 Clonidine (Catapres) 0.1 mg Q6H PRN PO ELEVATED SYSTOLIC BP; Start 06/28/16 at 21:30 Senna (Senokot) 2 tab BID PRN PO CONSTIPATION Last administered on 06/28/16 21 :32; Admin Dose 2 TAB; Start 06/28/16 at 21:30 Lactobacillus Acidoph/Bulgaricus (Floranex) 1 tab TID PO Last administered on 12:36; Admin Dose 1 TAB; Start 06/30/16 at 21:00 Acyclovir 400 mg 400 mg TID PO Last administered on 07/01/16 12:36; Admin Dose 400 MG; Start 06/30/16 at 17:00; Stop 07/07/16 at 16:59 Cefazolin Sodium (Ancef 1 Gm/50 ml (Pmx)) 50 ml @ 100 mls/hr Q8 IVPB Last administered on 07/01/16 14:31; Admin Dose 100 MLS/HR; Start 06/30/16 at 16:30 ; Stop 07/07/16 at 23:55 Insulin Glargine (Lantus) 10 unit DAILY@08 SC ; Start 07/02/16 at 08:00 CYNTHIA LAGUNAS Jul 01, 2016 18:00
[2016-07-01 20:24] VITALS: BP 154/86; RESP 18
--- NOTE | 2016-07-01 20:50 | PN ---
DATE: 07/01/2016 SUBJECTIVE: Patient is alert, sitting in a chair, looks comfortable, denies pain, discomfort. No f francisco. MICROBIOLOGY: Wound culture grew oxacillin-sensitive Staphylococcus aureus. Anaerobic culture was negative. ANTIMICROBIALS: The patient was started on Ancef. PHYSICAL EXAMINATION: GENERAL: This is a well-developed, well-nourished elderly woman who is alert, in no distress. HEENT: Head atraumatic, normocephalic. Sclerae anicteric. Buccal mucosa pink. NECK: Supple. CHEST: Rise symmetrical. Breath sounds clear. HEART: S1, S2. ABDOMEN: Soft. Bowel tones present. EXTREMITIES: Without cyanosis. ASSESSMENT: 1. Status post left chest wall abscess incision and drainage. 2. Status post left modified radical mastectomy with axillary dissection for advanced cancer on 3. Diabetes. PLAN: The patient remains stable on appropriate antimicrobials. Continue present care, local wound care as per surgical recommendations. Dictated By: KULWANT KELLY MAILROOM PERSONNEL for ABNER VAZQUEZ/MANDY Conf#: [id number] DID#: [id number]
[2016-07-02 05:42] LABS: ADD SCAN DIFF NO
[2016-07-02] MEDS: CEFAZOLIN 1 GM/50 ML (PMX) 50 ML IVPB SCH ×3 (05:44→21:20)
[2016-07-02 05:48] LABS: BASOPHILS % 0.4 % (0.0-2.0); EOSINOPHILS # 0.3 10^3/ul (0.0-0.5); EOSINOPHILS % 2.8 % (0.0-7.0); HEMOGLOBIN 11.9 g/dl (12.0-16.0); LYMPHOCYTES % 33.9 % (15.0-51.0); MEAN CORPUSCULAR HEMOGLOBIN 29.4 pg (29.0-33.0); MEAN CORPUSCULAR VOLUME 86.4 fl (82.0-101.0); MEAN PLATELET VOLUME 10.1 fl (7.4-10.4); MONOCYTE # 0.5 10^3/ul (0.3-0.9); MONOCYTES % 5.4 % (0.0-11.0); NEUTROPHIL # 5.1 10^3/ul (1.6-7.5); NEUTROPHILS % 57.1 % (39.0-77.0); PLATELET COUNT 352 10^3/UL (140-415); RED BLOOD COUNT 4.05 10^6/ul (4.20-5.40); RED CELL DISTRIBUTION WIDTH 12.2 % (11.5-14.5); WHITE BLOOD COUNT 8.9 10^3/ul (4.8-10.8)
[2016-07-02 06:12] LABS: POTASSIUM 4.1 mmol/L (3.5-5.1)
[2016-07-02 06:15] LABS: CALCIUM 9.4 mg/dl (8.4-10.2); CREATININE 0.43 mg/dl (0.44-1.00)
[2016-07-02] MEDS ORDERED: INSULIN GLARGINE [LANtus] 3 ML PEN SC SCH (08:00)
[2016-07-02 08:12] VITALS: BP 131/60; RESP 16
[2016-07-02] MEDS: LISINOPRIL 20 MG TAB PO SCH (08:59)
[2016-07-02] MEDS: ACYCLOVIR 400 MG TAB PO SCH ×3 (08:59→20:32)
[2016-07-02] MEDS: metFORMIN 500 MG TAB PO SCH ×2 (08:59→18:14)
[2016-07-02] MEDS: DOCUSATE SODIUM 100 MG CAP PO SCH ×2 (08:59→20:32)
[2016-07-02] MEDS: LACTOBACILLUS CHEW TAB PO SCH ×3 (08:59→20:32)
[2016-07-02] MEDS: INSULIN ASPART [NOVOLOG] 3 ML PEN SC SCH ×4 (09:05→21:00)
--- NOTE | 2016-07-02 14:14 | PN ---
DATE: 07/02/2016 SUBJECTIVE: No acute events. The patient is alert, ambulating in the moya. Looks comfortable, no fevers. She is on IV Ancef. PHYSICAL EXAMINATION: GENERAL: Well-developed, elderly woman who is alert, in no distress. HEENT: Head atraumatic, normocephalic. Sclerae anicteric. Buccal mucosa pink. NECK: Supple. CHEST: Rise symmetrical. Breath sounds clear. HEART: S1, S2. ABDOMEN: Soft, bowel sounds present. EXTREMITIES: No cyanosis. ASSESSMENT: 1. Status post left chest wall abscess incision and drainage. 2. History of mastectomy on 06/06/2016 of the left breast. 3. Diabetes. 4. Hypertension. PLAN: The patient remains stable. Continue present care, antibiotics. Anticipate discharge on ora l Keflex when patient is cleared by surgery. Dictated By: KULWANT KELLY DENTAL TECHNICIAN for ABNER VAZQUEZ/NTS Conf#: [id number] DID#: [id number]
--- NOTE | 2016-07-02 16:44 | PN ---
Date/Time of Note Date/Time of Note DATE: 07/02/16 TIME: 16:42 Assessment/Plan VTE Prophylaxis VTE Prophylaxis Intervention: SCD's Lines/Catheters [facility] Saline Lock Urinary Cath still in place: No Assessment/Plan Chief Complaint/Hosp Course ASSESSMENT AND PLAN: 1. Chest wall abscess, status post incision and drainage of the left chest wall and wound abscess by Dr Tan. Dr. Briggs is following in infectious disease consultation. Continue antibiotics and dressing changes. 2. Status post left modified radical mastectomy on 06/06/2016. 3. Hypertension. Continue Lisinopril. Continue hydralazine p.r.n. for a systolic blood pressure above 170. 4. Diabetes mellitus type 2. Continue the patient on Lantus and NovoLog per moderate algorithm sliding scale. Further recommendations based on clinical course. Plan of care discussed with Dr. Costa. Problems: Subjective 24 Hr Interval Summary Free Text/Dictation Patient remains afebrile, patient stated the pain is well controlled, continue wound care per surgery recommendation. Exam/Review of Systems Vital Signs Vitals Vital Signs Date Time Temp Pulse Resp B/P Pulse Ox O2 Delivery O2 Flow Rate FiO2 07/02/16 08:12 98.7 85 16 131/60 95 06/30/16 08:12 Room Air Intake and Output 07/01/16 07/01/16 07/02/16 14:59 22:59 06:59 Intake Total 1390 ml 890 ml Output Total 1100 ml 1150 ml Balance 290 ml -260 ml Exam PHYSICAL ASSESSMENT: GENERAL: Well-developed, well-nourished female, in no acute distress. HEENT: Head is atraumatic, normocephalic. PERRLA. NECK: Supple. No cervical lymphadenopathy, no thyromegaly. CHEST: Lungs clear bilaterally. Left breast, s/p surgery. CARDIOVASCULAR: Normal S1, S2. No murmurs, gallops, clicks, or rubs noted. ABDOMEN: Round, soft, nondistended, nontender. Bowel sounds are present in all 4 quadrants. There is no guarding or rebound tenderness. EXTREMITIES: There is no edema, clubbing or cyanosis. Pulses are equal bilaterally at 2+. SKIN: There is no rash or petechiae noted. NEUROLOGIC: The patient is awake, alert and oriented x4. Results Result Diagram: 07/02/16 0435 07/02/16 0435 Results 24 hrs Laboratory Tests Test 07/01/16 17:43 07/01/16 20:03 07/02/16 04:35 07/02/16 09:02 Bedside Glucose 123 262 H 233 H Anion Gap 15 Basophils # 0.0 Basophils % 0.4 Blood Urea Nitrogen 10 Calcium Level 9.4 Carbon Dioxide Level 26 Chloride Level 100 Creatinine 0.43 L Eosinophils # 0.3 Eosinophils % 2.8 Glucose Level 212 Hematocrit 35.0 L Hemoglobin 11.9 L Lymphocytes # 3.0 H Lymphocytes % 33.9 Mean Corpuscular Hemoglobin 29.4 Mean Corpuscular Hemoglobin Concent 34.0 Mean Corpuscular Volume 86.4 Mean Platelet Volume 10.1 Monocytes # 0.5 Monocytes % 5.4 Neutrophils # 5.1 Neutrophils % 57.1 Nucleated Red Blood Cells # 0.0 Nucleated Red Blood Cells % 0.0 Platelet Count 352 Potassium Level 4.1 Red Blood Count 4.05 L Red Cell Distribution Width 12.2 Sodium Level 137 White Blood Count 8.9 Test 07/02/16 12:33 Bedside Glucose 321 H Medications Medications Current Medications Ondansetron HCl (Zofran Inj) 4 mg Q6H PRN IV NAUSEA AND/OR VOMITING; Start at 19:30 Morphine Sulfate 2 mg 2 mg Q1H PRN IV PAIN; Start 06/27/16 at 19:30 Acetaminophen (Ofirmev 1000mg/ 100ml Iv) 100 ml @ 400 mls/hr Q6H PRN IVPB PAIN Last administered on 06/30/16t 22:29; Admin Dose 400 MLS/HR; Start at 19:30 Miscellaneous Information 1 ea NOTE XX ; Start 06/27/16 at 22:30 Glucose (Glutose) 15 gm Q15M PRN PO DECREASED GLUCOSE; Start 06/27/16 at 22:30 Glucose (Glutose) 22.5 gm Q15M PRN PO DECREASED GLUCOSE; Start 06/27/16 at 22: 30 Dextrose (D50w Syringe) 25 ml Q15M PRN IV DECREASED GLUCOSE; Start 06/27/16 at 22:30 Dextrose (D50w Syringe) 50 ml Q15M PRN IV DECREASED GLUCOSE; Start 06/27/16 at 22:30 Glucagon (Glucagen) 1 mg Q15M PRN IM DECREASED GLUCOSE; Start 06/27/16 at 22:30 Glucose (Glutose) 15 gm Q15M PRN BUCCAL DECREASED GLUCOSE; Start 06/27/16 at 22 :30 Docusate Sodium (Colace) 100 mg BID PO Last administered on 07/02/16 08:59; Admin Dose 100 MG; Start 06/28/16 at 11:00 Lisinopril (Zestril) 20 mg DAILY PO Last administered on 07/02/16 08:59; Admin Dose 20 MG; Start 06/28/16 at 21:30 Clonidine (Catapres) 0.1 mg Q6H PRN PO ELEVATED SYSTOLIC BP; Start 06/28/16 at 21:30 Senna (Senokot) 2 tab BID PRN PO CONSTIPATION Last administered on 06/28/16 21 :32; Admin Dose 2 TAB; Start 06/28/16 at 21:30 Lactobacillus Acidoph/Bulgaricus (Floranex) 1 tab TID PO Last administered on 12:34; Admin Dose 1 TAB; Start 06/30/16 at 21:00 Acyclovir 400 mg 400 mg TID PO Last administered on 07/02/16 12:34; Admin Dose 400 MG; Start 06/30/16 at 17:00; Stop 07/07/16 at 16:59 Cefazolin Sodium (Ancef 1 Gm/50 ml (Pmx)) 50 ml @ 100 mls/hr Q8 IVPB Last administered on 07/02/16 14:20; Admin Dose 100 MLS/HR; Start 06/30/16 at 16:30 ; Stop 07/07/16 at 23:55 Insulin Glargine (Lantus) 10 unit DAILY@08 SC Last administered on 07/02/16 09 :06; Admin Dose 10 UNIT; Start 07/02/16 at 08:00 CYNTHIA LAGUNAS Jul 02, 2016 16:44
[2016-07-02] MEDS ORDERED: INSULIN ASPART [NOVOLOG] 3 ML PEN SC SCH (17:55)
--- NOTE | 2016-07-02 18:11 | RADRPT ---
Vent Rate: 70 bpm RR Interval: 0 msec VT Interval: 154 msec QRS Duration: 82 msec QT Interval: 400 msec QTC Interval: 432 msec P-R-T [place]: 54 - 5 - 60 degrees Normal sinus rhythm Normal ECG Electronically Signed By: Terell Hathaway [id number]
[2016-07-02 20:43] VITALS: BP 141/66; RESP 20
[2016-07-02] MEDS ORDERED: INSULIN ASPART [NOVOLOG] 3 ML PEN SC ONE (21:00)
[2016-07-02] MEDS: ACETAMINOPHEN 1000MG/100ML IV 100 ML IVPB PRN (22:22)
[2016-07-03 00:25] VITALS: BP 148/75; PULSE 62; RESP 18
--- NOTE | 2016-07-03 00:57 | PN ---
DATE: 07/02/2016 SUBJECTIVE: No complaint. Feels much better. OBJECTIVE: 98.7, 85, 16, 131/60 blood pressure, saturation 95% on room air. LABORATORY DATA: WBC 8900, ____72_% differential. Chemistry: ASSESSMENT: Patient with modified radical mastectomy, presented 3 weeks after operation with abscess of the incisional area. It was drained by Dr. Tan in the operating room. The patient has been started on antibiotics. The culture has grown staph and the antibiotic is Ancef 1 gram IV q.6 hours. Dressing was changed today. There is minimal drainage. Wound looks good. PLAN: From a surgical point of view, the patient can be discharged with drains in place to be followed by dr. Tan in the office. If okay with infectious disease, probably the patient can be discharged tomorrow with oral antibiotic. Dictated By: DEEPA SONG MD PS/NTS Conf#: [id number] DID#: [id number]
[2016-07-03] MEDS ORDERED: ACCU-CHEK XX SCH (02:00)
[2016-07-03 05:44] LABS: ADD SCAN DIFF NO
[2016-07-03 05:53] LABS: BASOPHIL # 0.1 10^3/ul (0.0-0.1); BASOPHILS % 0.6 % (0.0-2.0); EOSINOPHILS # 0.2 10^3/ul (0.0-0.5); EOSINOPHILS % 2.6 % (0.0-7.0); HEMATOCRIT 37.1 % (37.0-47.0); HEMOGLOBIN 12.7 g/dl (12.0-16.0); LYMPHOCYTES # 3.2 10^3/ul (0.8-2.9); MEAN CORPUSCULAR HEMOGLOBIN 29.5 pg (29.0-33.0); MEAN CORPUSCULAR HGB CONC 34.2 g/dl (32.0-37.0); MEAN CORPUSCULAR VOLUME 86.1 fl (82.0-101.0); MEAN PLATELET VOLUME 11.2 fl (7.4-10.4); MONOCYTE # 0.4 10^3/ul (0.3-0.9); MONOCYTES % 5.1 % (0.0-11.0); NEUTROPHIL # 4.3 10^3/ul (1.6-7.5); NEUTROPHILS % 52.5 % (39.0-77.0); PLATELET COUNT 299 10^3/UL (140-415); RED BLOOD COUNT 4.31 10^6/ul (4.20-5.40); RED CELL DISTRIBUTION WIDTH 12.1 % (11.5-14.5); WHITE BLOOD COUNT 8.2 10^3/ul (4.8-10.8)
[2016-07-03] MEDS: CEFAZOLIN 1 GM/50 ML (PMX) 50 ML IVPB SCH ×2 (06:15→13:51)
[2016-07-03 06:17] LABS: POTASSIUM 4.2 mmol/L (3.5-5.1)
[2016-07-03 06:19] LABS: CREATININE 0.44 mg/dl (0.44-1.00)
[2016-07-03 06:20] LABS: CALCIUM 9.7 mg/dl (8.4-10.2)
[2016-07-03] MEDS ORDERED: INSULIN GLARGINE [LANtus] 3 ML PEN SC SCH ×2 (08:00)
[2016-07-03 08:03] VITALS: BP 127/61; RESP 18
[2016-07-03] MEDS: LISINOPRIL 20 MG TAB PO SCH (08:41)
[2016-07-03] MEDS: ACYCLOVIR 400 MG TAB PO SCH ×2 (08:41→12:31)
[2016-07-03] MEDS: LACTOBACILLUS CHEW TAB PO SCH ×2 (08:41→12:31)
[2016-07-03] MEDS: metFORMIN 500 MG TAB PO SCH ×2 (08:41→18:20)
[2016-07-03] MEDS: DOCUSATE SODIUM 100 MG CAP PO SCH (08:41)
[2016-07-03] MEDS: INSULIN ASPART [NOVOLOG] 3 ML PEN SC SCH ×6 (08:42→18:21)
[2016-07-03] MEDS: ACETAMINOPHEN 1000MG/100ML IV 100 ML IVPB PRN (12:31)
--- NOTE | 2016-07-03 13:21 | PN ---
DATE: Status post incision and drainage of the left mastectomy site abscess. SUBJECTIVE: Feels better. No nausea, no vomiting, tolerating diet. No fever. OBJECTIVE: VITAL SIGNS: Temperature 98, pulse is 69, respirations 18, blood pressure 127/61, saturation 97% on room air. LABORATORY: WBC 8200 with 52% segmented. Chemistry: Blood sugar POC is 250. Wound clean. ASSESSMENT: A 61-year-old female is status post modified radical mastectomy with axillary dissectio n 3 to 4 weeks ago followed later on developed abscess. The abscess was drained. Luis was place d. Culture grew staph. The patient is on antibiotic Ancef about 1 week. PLAN: 1. The patient can be discharged from surgical point of view. 2. To get antibiotic Keflex per infectious disease. 3. Home health to visit the patient daily and change the dressing. 4. Follow up by Dr. Tan in the office next week. The patient should call the office and make an appointment. Dictated By: DEEPA SONG MD PS/MANDY Conf#: [id number] DID#: [id number]
[2016-07-03] MEDS ORDERED: LANT3I SC (16:07)
[2016-07-03] MEDS ORDERED: HYDR-906 PO (16:07)
[2016-07-03] MEDS ORDERED: NOVO3I SC (16:07)
[2016-07-03] MEDS ORDERED: CEPH250S33 PO (16:07)
--- NOTE | 2016-07-07 22:01 | DS ---
DATE OF ADMISSION: 06/28/2016 DATE OF DISCHARGE: 07/03/2016 FINAL DIAGNOSES: 1. Chest wall abscess status post incision and drainage of the left chest wall and wound abscess. 2. Status post left modified radical mastectomy on 06/06/2016. 3. Hypertension. 4. Diabetes mellitus. BRIEF HISTORY: The patient is a 61-year-old female who underwent left modified radical mas tectomy on 06/06/2016. The patient also had a history of diabetes, hypertension, and locally advanc ed left breast cancer. The patient was seen in postoperative appointment with Dr. Tan and was not ed to have a chest wall abscess and postoperative wound infection. The patient was brought to the ospital and underwent I and D of the left chest wall and wound abscess. The patient required antibi otics and had significant pain and patient was admitted for further evaluation and management. HOSPITAL COURSE: The patient was given vancomycin and cefazolin. The patient also was evaluated by Dr. Briggs in infectious disease consultation. The patient also continued on Lantus and NovoLog pe r moderate algorithm sliding scale. The patient had daily dressing changes and was followed by surg jose alejandro. The patient's condition is improved. The patient's wound culture grew oxacillin-sensitive Sta phylococcus aureus. The patient had intravenous antibiotics. Overall, the patient's condition impr jose david. The patient's insulin was titrated to keep the blood sugar under control. The patient was di scharged home with home health services for daily dressing changes. CONDITION ON DISCHARGE: Hemodynamically stable. ACTIVITY: As patient tolerates. DIET: 1800 ADA, 2 g sodium diet. DISCHARGE MEDICATIONS: 1. The patient is given Keflex 500 mg p.o. q.8 hours for 7 more days. 2. The patient given prescription for Lantus 16 units subq daily at 8:00 p.m. 3. NovoLog 5 units subcu with meals t.i.d. 4. The patient to continue on Tylenol for pain. 5. Aspirin. 6. [place] for moderate to severe pain. 7. Metformin. 8. Accupril. FOLLOWUP: The patient is instructed to follow up with Dr. Tan in 5 to 7 days and follow up with [facility] physician for glucose and hypertension management. Interdisciplinary plan of care was established for this patient. Plan of care was discussed with Dr Masoud Go. Dictated By: CYNTHIA LAGUNAS REGULATORY AUDITOR for SONA GO MD SR/NTS Conf#: [id number] DID#: [id number] CC: SHANON TAN MD;*End*
== END 2016-07-03 18:55 | disposition home health service (06) | DRG 863 ==
LOC: SDS 13:23 → MS1 20:45 → SDS 06-28 13:00 → MS1 07-01 08:07 → SDS 07-01 08:07
PROVIDERS: ADMIT Surgery Surgical Oncology; ATTEND Surgery Surgical Oncology
PROC: 0W9800Z Drainage of Chest Wall with Drainage Device, Open Approach (ICD-10-PCS; principal; 2016-06-28)
DX: T81.4XXA Infection following a procedure, initial encounter (principal); L03.313 Cellulitis of chest wall; I10 Essential (primary) hypertension; B95.61 Methicillin susceptible Staphylococcus aureus infection as the cause of diseases classified elsewhere; E11.9 Type 2 diabetes mellitus without complications; Z79.4 Long term (current) use of insulin; Z85.3 Personal history of malignant neoplasm of breast
CPT/HCPCS: 71010; 80048; 82962; 85025; 85610; 85730; 87070; 87075; 90686; 93005; J0131; J0690; J1815; J1885; J2250; J2270; J2405; J2543; J2765; J3010; J3370; J7030; J7050

== ENCOUNTER 2017-07-06 08:41 | Emergency (ER) | END 2017-07-06 10:12 | disposition home or self-care (01) ==

== ENCOUNTER 2018-06-12 15:24 | Inpatient (IN) | payer OTHER ==
[~2018-06-12] VITALS: Ht 157.5 cm; Wt 67.3 kg
[~2018-06-12 15:24] MED LIST changes: +ASPI-1044 PO; -ASPI-664 PO; -BACTDS PO; -CEFAZOLIN 2 GM/50 ML (PMX) 50 ML IVPB SCH; -CEPH-443 PO; +CEPH250S33 PO; +HYDR-4011 PO; -HYDR-906 PO; -IBUP400T22 PO; +IBUP800T48 PO; +LANT3I SC; +NOVO3I SC; -NPH,100V SQ; -NPH,100V10 SQ
[2018-06-12] MEDS ORDERED: SODIUM CHLORIDE 0.9% 1L BAG IV* STA (15:48)
[2018-06-12] MEDS ORDERED: LISI-471 PO (16:24)
[2018-06-12] MEDS ORDERED: MAGN400T27 PO (16:24)
[2018-06-12] MEDS ORDERED: NOVO7030 SC ×2 (16:24)
[2018-06-12] MEDS ORDERED: ASPI-817 PO (16:25)
[2018-06-12] MEDS ORDERED: LETR2.5T PO (16:25)
[2018-06-12] MEDS ORDERED: ATOR10TA65 PO (16:26)
[2018-06-12] MEDS ORDERED: AMLO-145 PO (16:26)
[2018-06-12] MEDS ORDERED: CHOL200073 PO (16:27)
[2018-06-12] MEDS ORDERED: VANCOMYCIN 1 GM (PMX) 250 ML IVPB ONE (16:30)
[2018-06-12] MEDS ORDERED: CEFEPIME 1GM/50 ML (PMX) 50 ML IVPB ONE (16:30)
[2018-06-12] MEDS ORDERED: KETOROLAC 15 MG INJ IV STA (17:22)
[2018-06-12] MEDS ORDERED: ACETAMINOPHEN 325 MG TAB PO ONE (17:30)
[2018-06-12] MEDS ORDERED: SOD CHLORIDE 0.9% 1,000 ML IV ONE (18:30)
[2018-06-12] MEDS ORDERED: ACETAMINOPHEN 325 MG TAB PO PRN (19:00)
[2018-06-12] MEDS ORDERED: ONDANSETRON 4 MG INJ IV PRN (19:00)
--- NOTE | 2018-06-12 19:01 | ERD ---
ER Documentation Chief Complaint Chief Complaint pt is bib family with c/o fever, aches/pains x few wks HPI This is a 63-year-old female with a past medical history of hypertension, hyperlipidemia, insulin-dependent diabetes who is presenting with a few weeks of intermittent fevers, chills, full body aches and pains, dysuria with urinary frequency and urgency. The patient seemed to have come and go over the course of a few weeks, but they became more pronounced several days ago. She endorses suprapubic tenderness. She endorses nausea with a few episodes of nonbilious nonbloody vomiting. She has no flank pain. She also endorses a congested cough, productive of clear/yellow sputum. She denies chest pain or chest tightness or shortness of breath. She does endorse occasional palpitations. She denies any constipation or diarrhea. She denies any black or bloody or tarry stools. The patient has had no headache or vision changes. The patient does not endorse neck or back pain. The patient denies lightheadedness or dizziness. The patient has had no focal deficits. The patient has had no weakness or numbness or t ingling to the face or extremities. ROS All systems reviewed and are negative except as per history of present illness. Medications Home Meds Active Scripts Ibuprofen* (Motrin*) 800 Mg Tab, 800 MG PO Q6H PRN for PAIN AND OR ELEVATED TEMP, #30 TAB Prov:DAVID MORRELL MD 07/06/17 Hydrocodone/Acetaminophen ([place] 5-325 Tablet) 1 Each Tablet, 1 TAB PO Q6H PRN for PAIN, #20 TAB Prov:CYNTHIA LAGUNAS 07/03/16 Reported Medications Cholecalciferol (Vitamin D3) (VITAMIN D-3) 2,000 Unit Capsule, 2000 UNIT PO DAILY 06/12/18 Atorvastatin Calcium (Atorvastatin Calcium) 10 Mg Tablet, 10 MG PO QHS, #30 TAB 06/12/18 Amlodipine Besylate* (Amlodipine Besylate*) 5 Mg Tablet, 5 MG PO DAILY 06/12/18 Letrozole* (Letrozole*) 2.5 Mg Tablet, 2.5 MG PO DAILY 06/12/18 Aspirin* (Aspirin* EC) 81 Mg Tablet.dr, 81 MG PO DAILY, TAB 3/1/19 Insulin Isophan/Regular (Humulin 70/30) 100 Units/Ml Susp, 25 UNIT SC QPM, EA 06/12/18 Insulin Isophan/Regular (Humulin 70/30) 100 Units/Ml Susp, 35 UNIT SC QAM, EA 06/12/18 Lisinopril* (Lisinopril*) 20 Mg Tablet, 20 MG PO DAILY 06/12/18 Magnesium Oxide* (Mag-Oxide*) 400 Mg Tablet, 400 MG PO BID 06/12/18 Quinapril Hcl (Accupril) 10 Mg Tablet, 20 MG PO DAILY 06/28/13 Metformin* (Glucophage*) 1,000 Mg Tablet, 1000 MG PO BID 06/28/13 Discontinued Reported Medications Aspirin Delayed Release (Aspirin Delayed Release) 81 Mg Tablet.dr, 81 MG PO DAILY 06/28/13 Discontinued Scripts Insulin Aspart* (Novolog Insulin Pen*) 100 Unit/Ml Soln, 5 UNIT SC WITH MEALS for 30 Days Prov:CYNTHIA LAGUNAS 07/03/16 Insulin Glargine* (Lantus*) 100 Unit/Ml Soln, 16 UNIT SC DAILY@08 for 30 Days Prov:CYNTHIA LAGUNAS 07/03/16 Cephalexin* (Cephalexin* Susp) 250 Mg/5 Ml Susp.recon, 500 MG PO Q8 for 7 Days, #1 BOTTLE Prov:CYNTHIA LAGUNAS 07/03/16 Acetaminophen* (Tylophen*) 500 Mg Capsule, 1 CAP PO Q6H PRN for PAIN AND OR ELEVATED TEMP, #20 CAP Prov:MARLEY URBANO 11/19/14 Allergies Allergies: Coded Allergies: No Known Allergies (Unverified Allergy, Unknown, 06/27/16) PMhx/Soc History of Surgery: Yes (LEFT BREAST INCISION PRIOR TO THIS SURGERY) Anesthesia Reaction: No Hx Neurological Disorder: No Hx Respiratory Disorders: No Hx Cardiac Disorders: Yes (Hypertension, hyperlipidemia, insulin-dependent diabetes) Hx Psychiatric Problems: No Hx Miscellaneous Medical Probl: No (BREAST CA) Hx Alcohol Use: No Hx Substance Use: No Hx Tobacco Use: No Smoking Status: Never smoker FmHx Family History: diabetes Physical Exam Vitals Vital Signs Date Temp Pulse Resp B/P (MAP) Pulse Ox O2 O2 Flow FiO2 Time Delivery Rate 06/12/18 102.3 129 24 119/60 96 Room Air 17:46 (79) 06/12/18 102.3 17:44 06/12/18 100.3 127 24 134/64 95 Room Air 16:07 (87) 06/12/18 101.2 131 20 141/67 96 15:26 (91) Physical Exam Const: No apparent distress, well-developed, well-nourished Head: Normocephalic, Atraumatic Eyes: Normal Conjunctiva. Extraocular movements intact. Pupils equal, round and reactive to light ENT: Normal External Ears, Nose and Mouth. Neck: Full range of motion. No meningismus. Resp: Faint bibasilar coarse breath sounds right greater than left. No wheezes. No respiratory distress. Cardio: Regular rhythm. Tachycardia. No murmurs, rubs or gallops Abd: Soft, non distended. Suprapubic tenderness. Normal bowel sounds Skin: No petechiae or rashes Back: No midline tenderness. No CVA tenderness Ext: No cyanosis, or edema Neur: Awake and alert, oriented 4. Cranial nerves intact. No facial droop. Normal strength, sensation and coordination. Psych: Normal Mood and Affect Result Diagram: 06/12/18 1555 06/12/18 1555 Results 24 hrs Laboratory Tests Test 06/12/18 15:55 06/12/18 15:57 06/12/18 16:27 06/12/18 17:35 White Blood 14.1 10^3/ul Count Red Blood Count 4.63 10^6/ul Hemoglobin 13.4 g/dl Hematocrit 39.0 % Mean Corpuscular 84.2 fl Volume Mean Corpuscular 28.9 pg Hemoglobin Mean Corpuscular 34.4 g/dl Hemoglobin Sasha nt Red Cell 12.2 % Distribution Width Platelet Count 177 10^3/UL Mean Platelet 10.7 fl Volume Immature 0.600 % Granulocytes % Neutrophils % 90.8 % Lymphocytes % 4.9 % Monocytes % 3.3 % Eosinophils % 0.0 % Basophils % 0.4 % Nucleated Red 0.0 /100WBC Blood Cells % Immature 0.080 10^3/ul Granulocytes # Neutrophils # 12.8 10^3/ul Lymphocytes # 0.7 10^3/ul Monocytes # 0.5 10^3/ul Eosinophils # 0.0 10^3/ul Basophils # 0.1 10^3/ul Nucleated Red 0.0 10^3/ul Blood Cells # Prothrombin Time 17.3 Sec Prothrombin Time 1.4 Ratio INR 1.40 International Normalized Ratio Activated 42.5 Sec Partial Thrombop last Time Sodium Level 129 mmol/L Potassium Level 5.0 mmol/L Chloride Level 91 mmol/L Carbon Dioxide 21 mmol/L Level Anion Gap 17 Blood Urea 26 mg/dl Nitrogen Creatinine 0.76 mg/dl Est Glomerular > 60 mL/min Filtrat Rate mL/min Glucose Level 531 mg/dl Calcium Level 10.1 mg/dl Phosphorus Level 2.1 mg/dl Magnesium Level 1.9 mg/dl Total Bilirubin 0.4 mg/dl Direct Bilirubin 0.00 mg/dl Indirect 0.4 mg/dl Bilirubin Aspartate Amino 41 IU/L Transf (AST/SGOT ) Alanine 37 IU/L Aminotransferase (ALT/SGPT) Alkaline 197 IU/L Phosphatase Troponin I < 0.012 ng/ml Total Protein 8.2 g/dl Albumin 4.3 g/dl Globulin 3.90 g/dl Albumin/Globulin 1.10 Ratio POC Venous 3.5 mmol/L Lactate Blood Gas Blood venous Specimen Source Arterial Blood 06/12/2018 5:17:5 Date Drawn 5 PM Arterial Blood VENOUS LINE Gas Puncture Site Praveen Test N/A Venous Blood pH 7.380 Venous Blood 36.2 mmHG pCO2 (Temp Corrected) Venous Blood pO2 22.7 mmHG (Temp Corrected) Venous Blood 20.9 mmol/L HCO3 Venous Blood 40.8 mmHG Oxygen Saturation Venous Blood -3.6 mmol/L Base Excess Venous Blood 13.2 g/dl Total Hemoglobin Venous Blood 40.6 % Oxyhemoglobin Venous Blood 0.3 % Methemoglobin Carboxyhemoglobi 0.3 % n Blood Gas 37.0 C Temperature Blood Gas ROOM AIR Modality FiO2 21.0 % Blood Gas M.D. Notified Whom Blood Gas 06/12/2018 5:22:3 Notified Time 3 PM Urine Color YELLOW Urine Clarity CLEAR Urine pH 6.0 Urine Specific 1.023 [place] Urine Ketones 1+ mg/dL Urine Nitrite NEGATIVE mg/dL Urine Bilirubin NEGATIVE mg/dL Urine NEGATIVE mg/dL Urobilinogen Urine Leukocyte TRACE Sudhir/ul Esterase Urine 1 /HPF Microscopic RBC Urine 23 /HPF Microscopic WBC Urine Bacteria FEW /HPF Urine Hemoglobin 1+ mg/dL Urine Glucose 3+ mg/dL Urine Total 1+ mg/dl Protein Test 06/12/18 18:07 POC Venous 1.9 mmol/L Lactate Current Medications Medications Dose Sig/Sheila Start Time Status Last (Trade) Ordered Route PRN Stop Time Admin Dose Reason Admin Sodium 1,620 ml BOLUS OVER 2 06/12/18 DC 06/12/18 Chloride HOURS STAT 15:48 06/12/18 16:01 (NS) IV* 15:49 Vancomycin 250 ml @ ONCE ONCE 06/12/18 DC 06/12/18 HCl 125 mls/hr IVPB 16:30 06/12/18 17:01 18:29 Cefepime HCl 50 ml @ ONCE ONCE 06/12/18 DC 06/12/18 100 mls/hr IVPB 16:30 06/12/18 16:36 16:59 650 mg ONCE ONCE 06/12/18 DC 06/12/18 Acetaminophen PO 17:30 06/12/18 17:44 (Tylenol 17:31 Tab) Ketorolac 15 mg ONCE STAT 06/12/18 DC 06/12/18 Tromethamine IV 17:22 06/12/18 17:44 (Toradol) 17:29 Sodium 1,000 ml @ Q1H ONCE 06/12/18 06/12/18 Chloride 1,000 mls/hr IV 18:30 06/12/18 18:15 19:29 Procedures/MDM MDM The patient's presentation warrants further investigation. Previous medical records, if available, were reviewed. LABS The patient's laboratory testing was obtained and reviewed. No emergent treatment was required unless described below. CBC: Leukocytosis with left shift, concerning for an infectious etiology of symptoms. No E/o anemia or thrombocytopenia Chemistry: No E/o severe acidosis or alkalosis or renal failure or liver disease or diabetic ketoacidosis. Mild hyponatremia, nonemergent, will be repleted with IV fluids. Hyponatremia could also be related to pneumonia. Elevated BUN with a BUN: Creatinine ratio greater than 20: 1, concerning for dehydration. Mildly elevated anion gap without evidence of acidosis. PT/INR: No E/o significant coagulopathy Lactate: E/o severe sepsis Troponin: No E/o acute ischemia Urine: E/o acute infection with hematuria Influenza: Negative EKG EKG read by me: Rate/Rhythm: Sinus tachycardia at 128 bpm Intervals: Normal [place]: Normal Impression: No evidence of acute ischemia. Sinus tachycardia. IMAGING Imaging and Radiology interpretation reviewed. CXR FINDINGS: The heart and mediastinum are within normal limits. There is a mild right lower lobe infiltrate. There is no pleural effusion or pneumothorax. IMPRESSION: Mild right lower lobe infiltrate. Electronically viewed and signed by .Nguyễn Silver MD, on 06/12/2018 16:28 TREATMENT/DISPOSITION The patient presents with symptoms concerning for sepsis. She is febrile and tachycardic, meeting criteria for a systemic inflammatory response syndrome. She is found to have leukocytosis and lactic acidosis, concerning for severe sepsis. The patient has evidence of urinary tract infection in addition to a right lower lobe pneumonia. The patient was treated with vancomycin and cefepime in the emergency department. The patient was given a sepsis bolus. Blood cultures were sent off. Please see sepsis note below. The patient's chest xray does not reveal pneumothorax or pleural effusions or pulmonary edema. The patient does not have a widened mediastinum and does not have signs or symptoms concerning for thoracic aortic aneurysm or dissection. The patient does not have pneumomediastinum or signs concerning for esophageal tear or rupture. The patient has no clinical or radiographic signs of pericardial effusion or tamponade. The patient does not have pneumoperitoneum and I have decreased suspicion of viscus perforation as possible referred pain. The patient does not have a history of heart failure and I have low suspicion for this. The patient does not have a diagnosis of COPD and is not wheezing today. The patient is not tachypneic or hypoxic. The patient is breathing comfortably and without pleuritic pain. The patient is not on hormonal therapy. The patient has no history of clotting or bleeding disorders. The patient has no calf tenderness. The patient has had no hemoptysis. I have decreased suspicion for PE. The patient's troponin and EKG are reassuring. I have low suspicion for acute coronary syndrome. The patient does have a history of diabetes. She does have significant hyperglycemia, but there is no evidence of DKA. She will benefit from IV fluid resuscitation in the emergency department. SEPSIS NOTE SIRS Criteria: Tachycardia, fever, leukocytosis Infectious source: UTI, pneumonia End organ damage indicated by: Lactate > 2.0 mmol/L SEPSIS MANAGEMENT Time to recognize sepsis: 1600. Time to recognize severe sepsis: 1600. Time to recognize septic shock: [No septic shock at this time]. 3 HOUR BUNDLE Blood cultures x 2 before abx: [Yes] 30 ml/kg NS bolus [Completed] Initial lactate 3.5 Repeat lactate 19 SEPTIC SHOCK ASSESSMENT: [NO] lactic acid > 4.0 [NO] persistent hypotension (SBP < 90 or 40 mmHg drop, MAP < 65) despite 30 L/kg IV fluid bolus CRITICAL CARE Critical care time [35] minutes Emergent fluid management while maintaining close respiratory support. Provision of immediate and broad-spectrum antibiotic therapy. Simultaneous assessment for possible sources in order to direct targeted therapy. Cons ideration for invasive and chemical support to prevent cardiopulmonary collapse. Critical care time is independent of procedures performed. ADMISSION The patient will be admitted to Dr. Costa in accordance with the patient's insurance. The patient was accepted by to telemetry at 1840 5 PM on June 12, 2018. Disclaimer: Inadvertent spelling and grammatical errors are likely due to EHR/dictation software use and do not reflect on the overall quality of patient care. Note that the electronic time recorded on this note does not necessarily reflect the actual time of the patient encounter. Departure Diagnosis: Primary Impression: Severe sepsis Additional Impressions: UTI (urinary tract infection) Urinary tract infection type: acute cystitis Hematuria presence: with hematuria Qualified Codes: N30.01 - Acute cystitis with hematuria Pneumonia Pneumonia type: due to unspecified organism Laterality: right Lung location: lower lobe of lung Qualified Codes: J18.1 - Lobar pneumonia, unspecified organism Tachycardia Fever Fever type: unspecified Qualified Codes: R50.9 - Fever, unspecified Leukocytosis Leukocytosis type: unspecified Qualified Codes: D72.829 - Elevated white blood cell count, unspecified Lactic acidosis Hyponatremia Elevated BUN Dehydration Elevated alkaline phosphatase level Hyperglycemia Condition: Serious GERALDO GUTIERREZ MD Jun 12, 2018 19:00
[2018-06-12 21:00] VITALS: BP 92/55; PULSE 108; RESP 18; Ht 157.5 cm; Wt 67.3 kg
[2018-06-12 21:27] VITALS: PULSE 108
[2018-06-12] MEDS ORDERED: IBUPROFEN 800 MG TAB PO PRN (23:00)
[2018-06-12] MEDS ORDERED: NS + KCL 20 MEQ 1,000 ML IV SCH (23:00)
[2018-06-12] MEDS ORDERED: HYDROCODONE/APAP (5/325) TAB PO PRN (23:00)
[2018-06-12] MEDS ORDERED: GLUCOSE GEL 15 GRAM TUBE BUCCAL PRN (23:30)
[2018-06-12] MEDS ORDERED: GLUCOSE GEL 15 GRAM TUBE PO PRN ×2 (23:30)
[2018-06-12] MEDS ORDERED: GLUCAGON 1 MG INJ IM PRN (23:30)
[2018-06-12] MEDS ORDERED: DEXTROSE 50% 50 ML SYRINGE IV PRN ×2 (23:30)
[2018-06-12] MEDS ORDERED: INSULIN ASPART [NOVOLOG] 3 ML PEN SC ONE (23:30)
[2018-06-12 23:44] VITALS: BP 99/52; PULSE 100; RESP 18
[2018-06-12] MEDS: CEFEPIME 1GM/50 ML (PMX) 50 ML IVPB SCH (23:53)
[2018-06-13] VITALS (12 sets, daily range): BP systolic 95–123; BP diastolic 52–71; PULSE 98–120; RESP 17–20
[2018-06-13] MEDS: SOD CHLORIDE 0.9% 1,000 ML IV SCH ×2 (00:02→13:20)
[2018-06-13] MEDS: ACCU-CHEK XX SCH ×3 (02:00→20:52)
[2018-06-13] MEDS: CEFEPIME 1GM/50 ML (PMX) 50 ML IVPB SCH ×2 (08:42→20:43)
[2018-06-13] MEDS: ASPIRIN (EC) 81 MG TAB PO SCH (08:43)
[2018-06-13] MEDS: ACETAMINOPHEN 325 MG TAB PO PRN (08:43)
[2018-06-13] MEDS: MAGNESIUM OXIDE 400 MG TAB PO SCH ×2 (08:43→20:43)
[2018-06-13] MEDS ORDERED: INSULIN GLARGINE [LANTus] (100 UNITS/ML) SYG SC SCH (09:00)
[2018-06-13] MEDS: LETROZOLE 2.5 MG TAB PO SCH (09:12)
[2018-06-13] MEDS: ENOXAPARIN 40 MG/0.4 ML SYG SC SCH (09:40)
[2018-06-13] MEDS: INSULIN ASPART [NOVOLOG] 3 ML PEN SC SCH ×6 (09:40→20:51)
[2018-06-13] MEDS: CHOLECALCIFEROL 2,000 UNIT CAP PO SCH (09:41)
--- NOTE | 2018-06-13 12:32 | HP ---
Date/Time of Note Date/Time of Note DATE: 06/13/18 TIME: 12:25 Assessment/Plan VTE Prophylaxis Risk score (from Ns)>0 risk: 3 SCD applied (from Ns): No Lines/Catheters IV Catheter Type (from Nrs): Saline Lock Assessment/Plan Assessment/Plan Severe sepsis-ID consult done UTI (urinary tract infection) - Acute cystitis with hematuria Pneumonia - Lobar pneumonia, unspecified organism Tachycardia Fever Leukocytosis Lactic acidosis Hyponatremia Elevated BUN Dehydration Elevated alkaline phosphatase level Hyperglycemia- Endo consult done Hx LEFT BREAST CANCER Result Diagram: 06/13/1815 06/13/18514 Results 24hrs Laboratory Tests Test 06/12/18 15:55 06/12/18 15:57 06/12/18 16:27 06/12/18 17:35 White Blood Count 14.1 #H Red Blood Count 4.63 Hemoglobin 13.4 Hematocrit 39.0 Mean Corpuscular 84.2 Volume Mean Corpuscular 28.9 L Hemoglobin Mean Corpuscular 34.4 Hemoglobin Concent Red Cell 12.2 Distribution Width Platelet Count 177 # Mean Platelet 10.7 H Volume Immature 0.600 H Granulocytes % Neutrophils % 90.8 H Lymphocytes % 4.9 L Monocytes % 3.3 Eosinophils % 0.0 Basophils % 0.4 Nucleated Red 0.0 Blood Cells % Immature 0.080 H Granulocytes # Neutrophils # 12.8 H Lymphocytes # 0.7 L Monocytes # 0.5 Eosinophils # 0.0 Basophils # 0.1 Nucleated Red 0.0 Blood Cells # Prothrombin Time 17.3 H Prothrombin Time 1.4 Ratio INR International 1.40 Normalized Ratio Activated 42.[address] Time Sodium Level 129 L Potassium Level 5.0 Chloride Level 91 L Carbon Dioxide 21 Level Anion Gap 17 H Blood Urea 26 H Nitrogen Creatinine 0.76 Est Glomerular > 60 Filtrat Rate mL/min Glucose Level 531 *H Calcium Level 10.1 Phosphorus Level 2.1 L Magnesium Level 1.9 Total Bilirubin 0.4 Direct Bilirubin 0.00 Indirect Bilirubin 0.4 Aspartate Amino 41 Transf (AST/SGOT) Alanine 37 Aminotransferase ( ALT/SGPT) Alkaline 197 H Phosphatase Troponin I < 0.012 Total Protein 8.2 H Albumin 4.3 Globulin 3.90 H Albumin/Globulin 1.10 Ratio POC Venous Lactate 3.5 *H Blood Gas Specimen Blood venous Source Arterial Blood 06/12/2018 5:17:55 Date Drawn PM Arterial Blood Gas VENOUS LINE Puncture Site Praveen Test N/A Venous Blood pH 7.380 Venous Blood pCO2 36.2 (Temp Corrected) Venous Blood pO2 22.7 L (Temp Corrected) Venous Blood HCO3 20.9 L Venous Blood 40.8 L Oxygen Saturation Venous Blood Base -3.6 Excess Venous Blood Total 13.2 Hemoglobin Venous Blood 40.6 Oxyhemoglobin Venous Blood 0.3 Methemoglobin Carboxyhemoglobin 0.3 Blood Gas 37.0 Temperature Blood Gas Modality ROOM AIR FiO2 21.0 Blood Gas Notified Shaunna Steinberg Blood Gas Notified 06/12/2018 5:22:33 Time PM Urine Color YELLOW Urine Clarity CLEAR Urine pH 6.0 Urine Specific 1.023 [place] Urine Ketones 1+ H Urine Nitrite NEGATIVE Urine Bilirubin NEGATIVE Urine Urobilinogen NEGATIVE Urine Leukocyte TRACE A Esterase Urine Microscopic 1 RBC Urine Microscopic 23 H WBC Urine Bacteria FEW A Urine Hemoglobin 1+ H Urine Glucose 3+ H Urine Total 1+ H Protein Test 06/12/18 18:07 06/12/18 22:05 06/12/18 23:08 06/12/18 23:26 POC Venous Lactate 1.9 Lactic Acid Level 1.8 Bedside Glucose 504 *H Glucose Level 484 *H Test 06/13/18 01:11 06/13/18 02:05 06/13/18 05:15 06/13/18 07:56 Bedside Glucose 386 H 375 H 367 H White Blood Count 12.0 H Red Blood Count 3.98 L Hemoglobin 11.5 L Hematocrit 34.6 L Mean Corpuscular 86.9 Volume Mean Corpuscular 28.9 L Hemoglobin Mean Corpuscular 33.2 Hemoglobin Concent Red Cell 12.7 Distribution Width Platelet Count 147 Mean Platelet 11.5 H Volume Immature 0.700 H Granulocytes % Neutrophils % 83.6 H Lymphocytes % 7.2 L Monocytes % 8.0 Eosinophils % 0.1 Basophils % 0.4 Nucleated Red 0.0 Blood Cells % Immature 0.080 H Granulocytes # Neutrophils # 10.0 H Lymphocytes # 0.9 Monocytes # 1.0 H Eosinophils # 0.0 Basophils # 0.1 Nucleated Red 0.0 Blood Cells # Sodium Level 135 Potassium Level 4.1 Chloride Level 106 # Carbon Dioxide 20 L Level Anion Gap 9 # Blood Urea 20 Nitrogen Creatinine 0.46 Est Glomerular > 60 Filtrat Rate mL/min Glucose Level 349 H Hemoglobin A1c 11.5 H Calcium Level 8.9 Test 06/13/18 11:53 Bedside Glucose 320 H HPI/ROS Admit Date/Time Admit Date/Time Jun 12, 2018 at 18:47 ROS HPI This is a 63-year-old female with a past medical history of hypertension, hyperlipidemia, insulin-dependent diabetes who is presenting with a few weeks of intermittent fevers, chills, full body aches and pains, dysuria with urinary frequency and urgency. The patient seemed to have come and go over the course of a few weeks, but they became more pronounced several days ago. She endorses suprapubic tenderness. She endorses nausea with a few episodes of nonbilious nonbloody vomiting. She has no flank pain. She also endorses a congested cough, productive of clear/yellow sputum. She denies chest pain or chest tightness or shortness of breath. She does endorse occasional palpitations. She denies any constipation or diarrhea. She denies any black or bloody or tarry stools. The patient has had no headache or vision changes. The patient does not endorse neck or back pain. The patient denies lightheadedness or dizziness. The patient has had no focal deficits. The patient has had no weakness or numbness or tingling to the face or extremities. ROS All systems reviewed and are negative except as per history of present illness. Medications Home Meds Active Scripts Ibuprofen* (Motrin*) 800 Mg Tab, 800 MG PO Q6H PRN for PAIN AND OR ELEVATED TEMP, #30 TAB Prov:DAVID MORRELL MD 07/06/17 Hydrocodone/Acetaminophen ([employer] Mdl 5-325 Tablet) 1 Each Tablet, 1 TAB PO Q6H PRN for PAIN, #20 TAB Prov:CYNTHIA LAGUNAS 07/03/16 Reported Medications Cholecalciferol (Vitamin D3) (VITAMIN D-3) 2,000 Unit Capsule, 2000 UNIT PO SABRINA Y 06/12/18 Atorvastatin Calcium (Atorvastatin Calcium) 10 Mg Tablet, 10 MG PO QHS, #30 TAB 06/12/18 Amlodipine Besylate* (Amlodipine Besylate*) 5 Mg Tablet, 5 MG PO DAILY 06/12/18 Letrozole* (Letrozole*) 2.5 Mg Tablet, 2.5 MG PO DAILY 06/12/18 Aspirin* (Aspirin* EC) 81 Mg Tablet.dr, 81 MG PO DAILY, TAB 06/12/18 Insulin Isophan/Regular (Humulin 70/30) 100 Units/Ml Susp, 25 UNIT SC QPM, EA 06/12/18 Insulin Isophan/Regular (Humulin 70/30) 100 Units/Ml Susp, 35 UNIT SC QAM, EA 06/12/18 Lisinopril* (Lisinopril*) 20 Mg Tablet, 20 MG PO DAILY 06/12/18 Magnesium Oxide* (Mag-Oxide*) 400 Mg Tablet, 400 MG PO BID 06/12/18 Quinapril Hcl (Accupril) 10 Mg Tablet, 20 MG PO DAILY 06/28/13 Metformin* (Glucophage*) 1,000 Mg Tablet, 1000 MG PO BID 06/28/13 Discontinued Reported Medications Aspirin Delayed Release (Aspirin Delayed Release) 81 Mg Tablet.dr, 81 MG PO DAILY 06/28/13 Discontinued Scripts Insulin Aspart* (Novolog Insulin Pen*) 100 Unit/Ml Soln, 5 UNIT SC WITH MEALS for 30 Days Prov:CYNTHIA LAGUNAS 07/03/16 Insulin Glargine* (Lantus*) 100 Unit/Ml Soln, 16 UNIT SC DAILY@08 for 30 Days Prov:CYNTHIA LAGUNAS 07/03/16 Cephalexin* (Cephalexin* Susp) 250 Mg/5 Ml Susp.recon, 500 MG PO Q8 for 7 Days, #1 BOTTLE Prov:CYNTHIA LAGUNAS 07/03/16 Acetaminophen* (Tylophen*) 500 Mg Capsule, 1 CAP PO Q6H PRN for PAIN AND OR ELEVATED TEMP, #20 CAP Prov:MARLEY URBANO 11/19/14 Allergies Allergies: Coded Allergies: No Known Allergies (Unverified Allergy, Unknown, 06/27/16) PMH/Family/Social Past Medical History PMhx/Soc History of Surgery: Yes (LEFT BREAST INCISION PRIOR TO THIS SURGERY) Anesthesia Reaction: No Hx Neurological Disorder: No Hx Respiratory Disorders: No Hx Cardiac Disorders: Yes (Hypertension, hyperlipidemia, insulin-dependent diabetes) Hx Psychiatric Problems: No Hx Miscellaneous Medical Probl: No (BREAST CA) Hx Alcohol Use: No Hx Substance Use: No Hx Tobacco Use: No Smoking Status: Never smoker FmHx Family History: diabetes Medications Current Medications Cefepime HCl 50 ml @ 100 mls/hr BID IVPB Last administered on 06/13/18 08:42; Admin Dose 100 MLS/HR; Start 06/12/18 at 23:00 Acetaminophen (Tylenol Tab) 650 mg Q4H PRN PO MILD PAIN(1-3)OR ELEVATED TEMP Last administered on 06/13/18 08:43; Admin Dose 650 MG; Start 06/12/18 at 23:00 Enoxaparin Sodium (Lovenox) 40 mg DAILY SC Last administered on 06/13/18 09:40; Admin Dose 40 MG; Start 06/13/18 at 09:00 Insulin Glargine (Lantus) 30 units DAILY SC Last administered on 06/13/18 11:15; Admin Dose 30 UNITS; Start 06/13/18 at 09:00 Insulin Aspart (Novolog Insulin Pen) 10 unit WITH MEALS SC Last administered on 06/13/18 09:41; Admin Dose 10 UNIT; Start 06/13/18 at 08:00 Aspirin (Halfprin) 81 mg DAILY PO Last administered on 06/13/18 08:43; Admin Dose 81 MG; Start 06/13/18 at 09:00 Atorvastatin Calcium (Lipitor) 10 mg HS PO ; Start 06/13/18 at 21:00 Cholecalciferol (Vitamin D) 2,000 unit DAILY PO Last administered on 06/13/18 09:41; Admin Dose 2,000 UNIT; Start 06/13/18 at 09:00 Acetaminophen/ Hydrocodone Bitart ([employer] Mdl (5/325)) 1 tab Q6H PRN PO MODERATE PAIN LEVEL 4-6; Start 06/12/18 at 23:00 Ibuprofen (Motrin) 800 mg Q8H PRN PO PAIN; Start 06/12/18 at 23:00 Letrozole (Femara) 2.5 mg DAILY PO Last administered on 06/13/18 09:12; Admin Dose 2.5 MG; Start 06/13/18 at 09:00 Magnesium Oxide (Mag-Ox 400) 400 mg BID PO Last administered on 06/13/18 08:43; Admin Dose 400 MG; Start 06/13/18 at 09:00 Miscellaneous Information 1 ea NOTE XX ; Start 06/12/18 at 23:30 Glucose (Glutose) 15 gm Q15M PRN PO DECREASED GLUCOSE; Start 06/12/18 at 23:30 Glucose (Glutose) 22.5 gm Q15M PRN PO DECREASED GLUCOSE; Start 06/12/18 at 23:30 Dextrose (D50w Syringe) 25 ml Q15M PRN IV DECREASED GLUCOSE; Start 06/12/18 at 23:30 Dextrose (D50w Syringe) 50 ml Q15M PRN IV DECREASED GLUCOSE; Start 06/12/18 at 2 3:30 Glucagon (Glucagen) 1 mg Q15M PRN IM DECREASED GLUCOSE; Start 06/12/18 at 23:30 Glucose (Glutose) 15 gm Q15M PRN BUCCAL DECREASED GLUCOSE; Start 06/12/18 at 23:30 Diagnostic Test (Pha) (Accu-Chek) 1 ea 02 XX ; Start 06/13/18 at 02:00 Insulin Aspart (Novolog Insulin Pen) NOVOLOG *MILD* ALGORITHM WITH MEALS BEDTIME SC Last administered on 06/13/18at 09:40; Admin Dose 7 UNIT; Start 06/13/18 at 08:00 Sodium Chloride 1,000 ml @ 75 mls/hr [id number] IV Last administered on 06/13/18at 00:02; Admin Dose 75 MLS/HR; Start 06/13/18 at 00:00 Coded Allergies: No Known Allergies (Unverified Allergy, Unknown, 06/27/16) Social History Smoking Status: Never smoker Exam/Review of Systems Vital Signs Vitals Vital Signs Date Temp Pulse Resp B/P (MAP) Pulse Ox O2 O2 Flow FiO2 Time Delivery Rate 06/13/18 104 12:07 06/13/18 100.2 11:26 06/13/18 18 105/52 95 11:21 (69) 06/12/18 Room Air 21:00 Intake and Output 06/12/18 06/12/18 06/13/18 1515:00 23:00 07:00 IntakeIntake Total 400 ml BalanceBalance 400 ml Exam Constitutional: alert, well developed Psych: nl mood/affect Eyes: nl lids, nl sclera Respiratory: diminished breath sounds MARLEY URBANO Jun 13, 2018 12:32
--- NOTE | 2018-06-13 17:08 | CONS ---
DATE OF ADMISSION: 06/12/2018 DATE OF CONSULTATION: 06/13/2018 TYPE OF CONSULTATION: Infectious Disease REASON FOR CONSULTATION: Antibiotic management. HISTORY OF PRESENT ILLNESS: Clemencia Knight is a 63-year-old female who was brought in by family with fever, aches, and pains lasting for a few weeks. Her past problems include: 1. Hypertension. 2. Hyperlipidemia. 3. Insulin-dependent diabetes mellitus. She presents with fever, chills, body aches and pains, dysuria with urinary frequency and urgency. T he patient had intermittent symptoms over the last few weeks, but worse over the last few days. She also has suprapubic tenderness. She has had nausea with occasional bouts of vomiting. She has no fl ank pain. She complains of cough, congestion, and yellow clear sputum. She has occasional palpitati ons. She does not complain of any particular weakness. She was on Keflex at home. PAST SURGICAL HISTORY: She had left breast incision for breast cancer. PAST MEDICAL HISTORY: As outlined. FAMILY HISTORY: Noncontributory. SOCIAL HISTORY: She does not smoke, drink or abuse drugs. ALLERGIES: NONE TO PENICILLIN, SULFA OR FOODS. MEDICATIONS: Per chart. REVIEW OF SYSTEMS: Noncontributory. PHYSICAL EXAMINATION: VITAL SIGNS: In the emergency room, temperature was up to 102.3, pulse of 129, respirations 24, puls e ox is good at 96. Blood pressure is adequate. GENERAL: She is in no apparent distress. SKIN: Without generalized rash. HEENT: Within normal limits. NECK: Supple. LYMPH NODES: None palpable. CHEST: Decreased breath sounds at the bases. HEART: Without murmur or gallop. She is tachycardic. ABDOMEN: Soft, nontender. She has suprapubic tenderness. EXTREMITIES: Without cyanosis, clubbing or edema. Without CVA tenderness. RECTAL AND GENITAL: Deferred. NEUROLOGIC: No focal neurological abnormality. LABORATORY DATA: On the 1st, her white count was 14.1, H and H of 13.4 and 39, platelet count 177. BUN and creatinine 26/0.76 and random glucose was 531 on admission. Her urine showed trace leukocyte esterase, 23 white cells per high-power field. She was started on vancomycin and cefepime. She had a leukocytosis with left shift. IMPRESSION AND PLAN: Probable urinary tract infection. She also has mild right lower lobe infiltrat e. She presented with symptoms consistent with sepsis with fever and tachycardia and criteria for sy stemic inflammatory response syndrome. She also has leukocytosis and lactic acidosis. We will sherri nue her on this current regimen. Of note is the fact that her blood culture is now positive for gram -negative rods consistent with the diagnosis of urinary tract infection with sepsis. I believe that if the cultures remain as is, we will discontinue her vancomycin. White count today is 12,000. In a ctuality, we will discontinue her vancomycin and it has been discontinued, so will continue on cefepi me for urinary tract infection with sepsis. I will dictate my findings to Dr. Costa. Dictated By: ABNER COOPER MD ADELFO/NTS Conf#: [id number] DID#: [id number] CC: SONA COSTA MD;*EndCC*
[2018-06-13] MEDS: metFORMIN 500 MG TAB PO SCH (17:42)
[2018-06-13] MEDS ORDERED: INSULIN ASPART [NOVOLOG] 3 ML PEN SC SCH (18:00)
[2018-06-13] MEDS: ATORVASTATIN 10 MG TAB PO SCH (20:44)
[2018-06-13] MEDS ORDERED: BISACODYL (EC) 5 MG TAB PO ONE (22:30)
[2018-06-14] VITALS (11 sets, daily range): BP systolic 114–132; BP diastolic 55–60; PULSE 88–111; RESP 16–20
[2018-06-14] MEDS: ACCU-CHEK XX SCH ×5 (01:50→20:32)
[2018-06-14] MEDS: SOD CHLORIDE 0.9% 1,000 ML IV SCH ×2 (01:53→13:36)
[2018-06-14] MEDS: INSULIN ASPART [NOVOLOG] 3 ML PEN SC SCH ×7 (07:47→20:23)
[2018-06-14] MEDS: MAGNESIUM OXIDE 400 MG TAB PO SCH ×2 (08:51→20:23)
[2018-06-14] MEDS: metFORMIN 500 MG TAB PO SCH ×2 (08:51→18:02)
[2018-06-14] MEDS: EMPAGLIFLOZIN 10 MG TABLET PO SCH (08:51)
[2018-06-14] MEDS: SENNA TAB PO SCH ×2 (08:52→20:23)
[2018-06-14] MEDS: ASPIRIN (EC) 81 MG TAB PO SCH (08:52)
[2018-06-14] MEDS: LINAGLIPTIN 5 MG TABLET PO SCH (08:52)
[2018-06-14] MEDS: CEFEPIME 1GM/50 ML (PMX) 50 ML IVPB SCH ×2 (08:52→22:02)
[2018-06-14] MEDS: CHOLECALCIFEROL 2,000 UNIT CAP PO SCH (08:52)
[2018-06-14] MEDS: INSULIN GLARGINE [LANTus] (100 UNITS/ML) SYG SC SCH (08:54)
[2018-06-14] MEDS: ENOXAPARIN 40 MG/0.4 ML SYG SC SCH (08:54)
[2018-06-14] MEDS: LETROZOLE 2.5 MG TAB PO SCH (08:55)
--- NOTE | 2018-06-14 09:28 | CONS ---
Assessment/Plan Assessment/Plan Problems: (1) Pneumonia Status: Acute Comment: Per primary team Qualifiers: Qualified Codes: J18.1 - Lobar pneumonia, unspecified organism (2) Acute pyelonephritis Status: Acute Comment: Per primary team (3) Type 2 diabetes mellitus with hyperglycemia Status: Chronic Comment: BG has been OOC at home which created the risk for this multifocal infection. Insulin doses have been inadequate and probably mistimed. Will restart metformin at 500 mg bid and add linagliptin 5 mg daily and empagliflozin 10 mg daily. Will increase Lantus from 30 to 36 units daily and Novolog from 10 to 15 and now to 18 units qac. Will follow with you and titrate meds to BG goal 100-180 mg/dL. 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 This progressed to loss of appetite and nausea. Subsequently developed generalized body aches. (+) subjective fever, chills, sweats, palpitations. Pt. did not have emesis but became progressively worse. Did not want to come to hospital but by 2 days ago could no longer tolerate her symptoms. In ER glucose was 531 mg/dL, sodium and potassium were mildly low, anion gap was open, there was elevated lactate in the blood at 3.5, febrile and tachycardic. CXR showed RLL infiltrate. (+) mild leukocytosis, (+) WBC and RBC in the urine. Cultures have grown gram (-) rods in the blood and klebsiella pneumoniae in the urine. A1c 11.5%. Pt. started on subcutaneous insulin protocol and endo consulted. Constitutional: chills, diaphoresis, febrile, poor po Eyes: no complaints ENT: no complaints Respiratory: cough Cardiovascular: palpitations Gastrointestinal: pain, decreased appetite, nausea; No vomiting Genitourinary: no complaints Musculoskeletal: no complaints Neurologic: no complaints Past Medical History Medical History: cancer (breast), diabetes, high cholesterol, hypertension Home Meds Active Scripts Ibuprofen* (Motrin*) 800 Mg Tab, 800 MG PO Q6H PRN for PAIN AND OR ELEVATED TEMP, #30 TAB Prov:DAVID MORRELL MD 07/06/17 Hydrocodone/Acetaminophen ([place] 5-325 Tablet) 1 Each Tablet, 1 TAB PO Q6H PRN for PAIN, #20 TAB Prov:CYNTHIA LAGUNAS 07/03/16 Reported Medications Cholecalciferol (Vitamin D3) (VITAMIN D-3) 2,000 Unit Capsule, 2000 UNIT PO DAILY 06/12/18 Atorvastatin Calcium (Atorvastatin Calcium) 10 Mg Tablet, 10 MG PO QHS, #30 TAB 06/12/18 Amlodipine Besylate* (Amlodipine Besylate*) 5 Mg Tablet, 5 MG PO DAILY 06/12/18 Letrozole* (Letrozole*) 2.5 Mg Tablet, 2.5 MG PO DAILY 06/12/18 Aspirin* (Aspirin* EC) 81 Mg Tablet.dr, 81 MG PO DAILY, TAB 06/12/18 Insulin Isophan/Regular (Humulin 70/30) 100 Units/Ml Susp, 25 UNIT SC QPM, EA 06/12/18 Insulin Isophan/Regular (Humulin 70/30) 100 Units/Ml Susp, 35 UNIT SC QAM, EA 06/12/18 Lisinopril* (Lisinopril*) 20 Mg Tablet, 20 MG PO DAILY 06/12/18 Magnesium Oxide* (Mag-Oxide*) 400 Mg Tablet, 400 MG PO BID 06/12/18 Quinapril Hcl (Accupril) 10 Mg Tablet, 20 MG PO DAILY 06/28/13 Metformin* (Glucophage*) 1,000 Mg Tablet, 1000 MG PO BID 06/28/13 Discontinued Reported Medications Aspirin Delayed Release (Aspirin Delayed Release) 81 Mg Tablet.dr, 81 MG PO DAILY 06/28/13 Discontinued Scripts Insulin Aspart* (Novolog Insulin Pen*) 100 Unit/Ml Soln, 5 UNIT SC WITH MEALS for 30 Days Prov:CYNTHIA LAGUNAS 07/03/16 Insulin Glargine* (Lantus*) 100 Unit/Ml Soln, 16 UNIT SC DAILY@08 for 30 Days Prov:CYNTHIA LAGUNAS 07/03/16 Cephalexin* (Cephalexin* Susp) 250 Mg/5 Ml Susp.recon, 500 MG PO Q8 for 7 Days, #1 BOTTLE Prov:CYNTHIA LAGUNAS 07/03/16 Acetaminophen* (Tylophen*) 500 Mg Capsule, 1 CAP PO Q6H PRN for PAIN AND OR ELEVATED TEMP, #20 CAP Prov:MARLEY URBANO 11/19/14 Medications Current Medications Cefepime HCl 50 ml @ 100 mls/hr BID IVPB Last administered on 06/14/18 08:52; Admin Dose 100 MLS/HR; Start 06/12/18 at 23:00 Acetaminophen (Tylenol Tab) 650 mg Q4H PRN PO MILD PAIN(1-3)OR ELEVATED TEMP Last administered on 06/13/18 08:43; Admin Dose 650 MG; Start 06/12/18 at 23:00 Enoxaparin Sodium (Lovenox) 40 mg DAILY SC Last administered on 06/14/18 08:54; Admin Dose 40 MG; Start 06/13/18 at 09:00 Aspirin (Halfprin) 81 mg DAILY PO Last administered on 06/14/18 08:52; Admin Dose 81 MG; Start 06/13/18 at 09:00 Atorvastatin Calcium (Lipitor) 10 mg HS PO Last administered on 06/13/18 20:44; Admin Dose 10 MG; Start 06/13/18 at 21:00 Cholecalciferol (Vitamin D) 2,000 unit DAILY PO Last administered on 06/14/18 08:52; Admin Dose 2,000 UNIT; Start 06/13/18 at 09:00 Acetaminophen/ Hydrocodone Bitart ([place] (5/325)) 1 tab Q6H PRN PO MODERATE PAIN LEVEL 4-6; Start 06/12/18 at 23:00 Ibuprofen (Motrin) 800 mg Q8H PRN PO PAIN; Start 06/12/18 at 23:00 Letrozole (Femara) 2.5 mg DAILY PO Last administered on 06/14/18 08:55; Admin Dose 2.5 MG; Start 06/13/18 at 09:00 Magnesium Oxide (Mag-Ox 400) 400 mg BID PO Last administered on 06/14/18 08:51; Admin Dose 400 MG; Start 06/13/18 at 09:00 Miscellaneous Information 1 ea NOTE XX ; Start 06/12/18 at 23:30 Glucose (Glutose) 15 gm Q15M PRN PO DECREASED GLUCOSE; Start 06/12/18 at 23:30 Glucose (Glutose) 22.5 gm Q15M PRN PO DECREASED GLUCOSE; Start 06/12/18 at 23:30 Dextrose (D50w Syringe) 25 ml Q15M PRN IV DECREASED GLUCOSE; Start 06/12/18 at 23:30 Dextrose (D50w Syringe) 50 ml Q15M PRN IV DECREASED GLUCOSE; Start 06/12/18 at 23:30 Glucagon (Glucagen) 1 mg Q15M PRN IM DECREASED GLUCOSE; Start 06/12/18 at 23:30 Glucose (Glutose) 15 gm Q15M PRN BUCCAL DECREASED GLUCOSE; Start 06/12/18 at 23:30 Diagnostic Test (Pha) (Accu-Chek) 1 ea 02 XX Last administered on 06/14/18at 01:50; Admin Dose 1 EA; Start 06/13/18 at 02:00 Insulin Aspart (Novolog Insulin Pen) NOVOLOG *MILD* ALGORITHM WITH MEALS BEDTIME SC Last administered on 06/14/18 07:47; Admin Dose 4 UNIT; Start 06/13/18 at 08:00 Sodium Chloride 1,000 ml @ 75 mls/hr [id number] IV Last administered on 06/13/18 13:20; Admin Dose 75 MLS/HR; Start 06/13/18 at 00:00 Metformin HCl (Glucophage) 500 mg BID WITH MEALS PO Last administered on 06/14/18 08:51; Admin Dose 500 MG; Start 06/13/18 at 18:00 Diagnostic Test (Pha) (Accu-Chek) 1 ea AC MEALS AND BEDTIME XX Last administered on 06/14/18 07:03; Admin Dose 1 EA; Start 06/13/18 at 17:30 Linagliptin (Tradjenta) 5 mg DAILY PO Last administered on 06/14/18 08:52; Admin Dose 5 MG; Start 06/14/18 at 09:00 Empaglifozin (Jardiance) 10 mg DAILY@08 PO Last administered on 06/14/18 08:51; Admin Dose 10 MG; Start 06/14/18 at 08:00 Senna (Senokot) 1 tab BID PO Last administered on 06/14/18at 08:52; Admin Dose 1 TAB; Start 06/14/18 at 09:00 Insulin Aspart (Novolog Insulin Pen) 18 unit WITH MEALS SC Last administered on 06/14/18at 09:12; Admin Dose 18 UNIT; Start 06/14/18 at 08:00 Insulin Glargine (Lantus) 36 units DAILY SC Last administered on 06/14/18at 08:54; Admin Dose 36 UNITS; Start 06/14/18 at 09:00 Allergies: Coded Allergies: No Known Allergies (Unverified Allergy, Unknown, 06/27/16) Past Surgical History Past Surgical Hx: other (L mastectomy) Family History Significant Family History: cancer (stomach in mother), diabetes Social History b. 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, , no children Alcohol Use: none Smoking Status: Never smoker Drug Use: none Exam/Review of Systems Exam Vitals VS - Last 72 Hours, by Label Date Temp Pulse Resp B/P (MAP) Pulse Ox O2 O2 Flow FiO2 Time Delivery Rate 06/14/18 88 08:17 06/14/18 98.4 91 20 114/56 95 07:18 (75) 06/14/18 98.6 98 17 120/56 97 04:17 (77) 06/14/18 100 04:00 06/14/18 98.4 95 17 120/59 98 00:30 (79) 06/14/18 111 00:00 06/13/18 105 20:00 06/13/18 98.8 105 17 118/56 98 19:55 (76) 06/13/18 112 16:16 06/13/18 98.7 104 20 103/71 97 15:34 (82) 06/13/18 104 12:07 06/13/18 100.2 11:26 06/13/18 98.5 107 18 105/52 95 11:21 (69) 06/13/18 100.2 95/53 (67) 10:39 06/13/18 102.2 08:43 06/13/18 120 08:31 06/13/18 102.2 120 18 123/60 94 08:16 (81) 06/13/18 98.5 105 18 105/55 97 04:04 (72) 06/13/18 103 04:00 06/13/18 98 00:00 06/12/18 98.0 100 18 99/52 (68) 96 23:44 06/12/18 108 21:27 06/12/18 98.2 108 18 92/55 (67) 93 Room Air 21:00 06/12/18 110 20 102/57 97 20:37 (72) 06/12/18 100.5 120 30 94/56 (69) 95 Room Air 18:45 06/12/18 102.3 129 24 119/60 96 Room Air 17:46 (79) 06/12/18 102.3 17:44 06/12/18 100.3 127 24 134/64 95 Room Air 16:07 (87) 06/12/18 101.2 131 20 141/67 96 15:26 (91) Vital Signs Date Temp Pulse Resp B/P (MAP) Pulse Ox O2 O2 Flow FiO2 Time Delivery Rate 06/14/18 88 08:17 06/14/18 98.4 20 114/56 95 07:18 (75) 06/12/18 Room Air 21:00 Intake and Output 06/13/18 06/13/18 06/14/18 1414:59 22:59 06:59 IntakeIntake Total 1900 ml 1450 ml BalanceBalance 1900 ml 1450 ml Constitutional: alert, oriented, well developed Psych: no complaints, nl mood/affect Eyes: nl conjunctiva, EOMI, nl lids, nl sclera, PERRL ENMT: nl external ears & nose, mucosa pink and moist Neck: supple, non-tender; No bruits, No masses, No thyromegaly Respiratory: crackles/rales (Left lower lobe) Cardiovascular: regular rate and rhythm, nl pulses; No edema, No murmurs/extra sounds, No rub Gastrointestinal: soft, nl liver, spleen, non-tender, bowel sounds; No mass, No rebound or guarding Musculoskeletal: nl extremities to inspection Extremities: normal pulses; No cyanosis, No clubbing, No edema 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, nl mental status, nl speech, nl strength Additional Comments Bedside Glucose - 72 Hours Test 06/12/18 23:08 06/13/18 01:11 06/13/18 02:05 06/13/18 07:56 Bedside 504 386 375 367 Glucose mg/dL (70-220) mg/dL (70-220) mg/dL (70-220) mg/dL (70-220) *H H H H Test 06/13/18 11:53 06/13/18 17:36 06/13/18 20:42 06/14/18 01:42 Bedside 320 309 280 252 Glucose mg/dL (70-220) mg/dL (70-220) mg/dL (70-220) mg/dL (70-220) H H H H Test 06/14/18 07:00 06/14/18 07:25 Bedside 283 268 Glucose mg/dL (70-220) mg/dL (70-220) H H Results Result Diagram: 06/13/18 0515 06/13/18 0515 Results 24hrs Laboratory Tests Test 06/13/18 11:53 06/13/18 17:36 06/13/18 20:42 06/14/18 01:42 Bedside Glucose 320 H 309 H 280 H 252 H Test 06/14/18 07:00 06/14/18 07:25 Bedside Glucose 283 H 268 H Medications Medication Current Medications Cefepime HCl 50 ml @ 100 mls/hr BID IVPB Last administered on 06/14/18 08:52; Admin Dose 100 MLS/HR; Start 06/12/18 at 23:00 Acetaminophen (Tylenol Tab) 650 mg Q4H PRN PO MILD PAIN(1-3)OR ELEVATED TEMP Last administered on 06/13/18 08:43; Admin Dose 650 MG; Start 06/12/18 at 23:00 Enoxaparin Sodium (Lovenox) 40 mg DAILY SC Last administered on 06/14/18 08:54; Admin Dose 40 MG; Start 06/13/18 at 09:00 Aspirin (Halfprin) 81 mg DAILY PO Last administered on 06/14/18 08:52; Admin Dose 81 MG; Start 06/13/18 at 09:00 Atorvastatin Calcium (Lipitor) 10 mg HS PO Last administered on 06/13/18 20:44; Admin Dose 10 MG; Start 06/13/18 at 21:00 Cholecalciferol (Vitamin D) 2,000 unit DAILY PO Last administered on 3/3/19at 0 8:52; Admin Dose 2,000 UNIT; Start 06/13/18 at 09:00 Acetaminophen/ Hydrocodone Bitart ([place] (5/325)) 1 tab Q6H PRN PO MODERATE PAIN LEVEL 4-6; Start 06/12/18 at 23:00 Ibuprofen (Motrin) 800 mg Q8H PRN PO PAIN; Start 06/12/18 at 23:00 Letrozole (Femara) 2.5 mg DAILY PO Last administered on 06/14/18at 08:55; Admin Dose 2.5 MG; Start 06/13/18 at 09:00 Magnesium Oxide (Mag-Ox 400) 400 mg BID PO Last administered on 06/14/18at 08:51; Admin Dose 400 MG; Start 06/13/18 at 09:00 Miscellaneous Information 1 ea NOTE XX ; Start 06/12/18 at 23:30 Glucose (Glutose) 15 gm Q15M PRN PO DECREASED GLUCOSE; Start 06/12/18 at 23:30 Glucose (Glutose) 22.5 gm Q15M PRN PO DECREASED GLUCOSE; Start 06/12/18 at 23:30 Dextrose (D50w Syringe) 25 ml Q15M PRN IV DECREASED GLUCOSE; Start 06/12/18 at 23:30 Dextrose (D50w Syringe) 50 ml Q15M PRN IV DECREASED GLUCOSE; Start 06/12/18 at 23:30 Glucagon (Glucagen) 1 mg Q15M PRN IM DECREASED GLUCOSE; Start 06/12/18 at 23:30 Glucose (Glutose) 15 gm Q15M PRN BUCCAL DECREASED GLUCOSE; Start 06/12/18 at 23:30 Diagnostic Test (Pha) (Accu-Chek) 1 ea 02 XX Last administered on 06/14/18at 01:50; Admin Dose 1 EA; Start 06/13/18 at 02:00 Insulin Aspart (Novolog Insulin Pen) NOVOLOG *MILD* ALGORITHM WITH MEALS BEDTIME SC Last administered on 06/14/18at 07:47; Admin Dose 4 UNIT; Start 06/13/18 at 08:00 Sodium Chloride 1,000 ml @ 75 mls/hr [id number] IV Last administered on 06/13/18at 13:20; Admin Dose 75 MLS/HR; Start 06/13/18 at 00:00 Metformin HCl (Glucophage) 500 mg BID WITH MEALS PO Last administered on 06/14/18 08:51; Admin Dose 500 MG; Start 06/13/18 at 18:00 Diagnostic Test (Pha) (Accu-Chek) 1 ea AC MEALS AND BEDTIME XX Last administered on 06/14/18 07:03; Admin Dose 1 EA; Start 06/13/18 at 17:30 Linagliptin (Tradjenta) 5 mg DAILY PO Last administered on 06/14/18 08:52; Admin Dose 5 MG; Start 06/14/18 at 09:00 Empaglifozin (Jardiance) 10 mg DAILY@08 PO Last administered on 06/14/18 08:51; Admin Dose 10 MG; Start 06/14/18 at 08:00 Senna (Senokot) 1 tab BID PO Last administered on 06/14/18 08:52; Admin Dose 1 TAB; Start 06/14/18 at 09:00 Insulin Aspart (Novolog Insulin Pen) 18 unit WITH MEALS SC Last administered on 06/14/18 09:12; Admin Dose 18 UNIT; Start 06/14/18 at 08:00 Insulin Glargine (Lantus) 36 units DAILY SC Last administered on 06/14/18 08:54; Admin Dose 36 UNITS; Start 06/14/18 at 09:00 BELEM TRACEY MD Jun 14, 2018 09:28
[2018-06-14] MEDS ORDERED: CEPASTAT LOZENGE MT PRN (14:30)
--- NOTE | 2018-06-14 16:10 | CONS ---
Assessment/Plan Assessment/Plan Hospital Course (Demo Recall) Patient is alert, feels better still with bilateral flank pain, no hematuria, no burning with urination, no fevers overnight WBC 12 H&H 11.5 and 34.6 platelets 147 neutrophils 83.6 BUN 20 creatinine 0.46 Microbiology: Blood culture growing gram-negative rods, urine culture grew Klebsiella pneumonia intermittency sensitive to nitrofurantoin Chest x-ray on admission revealed right lower lobe infiltrate Antimicrobials: Cefepime Physical examination: Well-developed well-nourished elderly woman who is alert in no distress. Head atraumatic normocephalic neck is supple chest rise symmetrical breath sounds clear diminished bases. Heart: S1-S2. Abdomen soft bowel sounds present. Assessment: 1. Sepsis, present on admission 2. Klebsiella pneumonia UTI 3. Bacteremia, likely secondary to above 4. Pneumonia Plan: Patient remains stable, we will will add levofloxacin to the regimen, continue cefepime until we get final cultures, follow chest x-ray in a.m. and repeat blood cultures Consultation Date/Type/Reason Admit Date/Time Jun 12, 2018 at 18:47 Initial Consult Date 06/14/18 Type of Consult id Requesting Provider: MARLEY URBANO Date/Time of Note DATE: 06/14/18 TIME: 16:10 Exam/Review of Systems Exam Vitals Vital Signs Date Temp Pulse Resp B/P (MAP) Pulse Ox O2 O2 Flow FiO2 Time Delivery Rate 06/14/18 99.0 92 20 124/59 98 15:39 (80) 06/12/18 Room Air 21:00 Intake and Output 06/13/18 06/13/18 06/14/18 1515:00 23:00 07:00 IntakeIntake Total 1900 ml 1450 ml BalanceBalance 1900 ml 1450 ml Results Result Diagram: 06/13/18 0515 06/13/18 0515 Results 24hrs Laboratory Tests Test 06/13/18 17:36 06/13/18 20:42 06/14/18 01:42 06/14/18 07:00 Bedside Glucose 309 H 280 H 252 H 283 H Test 06/14/18 07:25 06/14/18 12:23 Bedside Glucose 268 H 155 Medications Medication Current Medications Cefepime HCl 50 ml @ 100 mls/hr BID IVPB Last administered on 06/14/18at 08:52; Admin Dose 100 MLS/HR; Start 06/12/18 at 23:00 Acetaminophen (Tylenol Tab) 650 mg Q4H PRN PO MILD PAIN(1-3)OR ELEVATED TEMP Last administered on 06/13/18 08:43; Admin Dose 650 MG; Start 06/12/18 at 23:00 Enoxaparin Sodium (Lovenox) 40 mg DAILY SC Last administered on 06/14/18 08:54; Admin Dose 40 MG; Start 06/13/18 at 09:00 Aspirin (Halfprin) 81 mg DAILY PO Last administered on 06/14/18 08:52; Admin Dose 81 MG; Start 06/13/18 at 09:00 Atorvastatin Calcium (Lipitor) 10 mg HS PO Last administered on 06/13/18 20:44; Admin Dose 10 MG; Start 06/13/18 at 21:00 Cholecalciferol (Vitamin D) 2,000 unit DAILY PO Last administered on 06/14/18 08:52; Admin Dose 2,000 UNIT; Start 06/13/18 at 09:00 Acetaminophen/ Hydrocodone Bitart ([place] (5/325)) 1 tab Q6H PRN PO MODERATE PAIN LEVEL 4-6; Start 06/12/18 at 23:00 Ibuprofen (Motrin) 800 mg Q8H PRN PO PAIN; Start 06/12/18 at 23:00 Letrozole (Femara) 2.5 mg DAILY PO Last administered on 06/14/18 08:55; Admin Dose 2.5 MG; Start 06/13/18 at 09:00 Magnesium Oxide (Mag-Ox 400) 400 mg BID PO Last administered on 06/14/18 08:51; Admin Dose 400 MG; Start 06/13/18 at 09:00 Miscellaneous Information 1 ea NOTE XX ; Start 06/12/18 at 23:30 Glucose (Glutose) 15 gm Q15M PRN PO DECREASED GLUCOSE; Start 06/12/18 at 23:30 Glucose (Glutose) 22.5 gm Q15M PRN PO DECREASED GLUCOSE; Start 06/12/18 at 23:30 Dextrose (D50w Syringe) 25 ml Q15M PRN IV DECREASED GLUCOSE; Start 06/12/18 at 23:30 Dextrose (D50w Syringe) 50 ml Q15M PRN IV DECREASED GLUCOSE; Start 06/12/18 at 23:30 Glucagon (Glucagen) 1 mg Q15M PRN IM DECREASED GLUCOSE; Start 06/12/18 at 23:30 Glucose (Glutose) 15 gm Q15M PRN BUCCAL DECREASED GLUCOSE; Start 06/12/18 at 23:30 Diagnostic Test (Pha) (Accu-Chek) 1 ea 02 XX Last administered on 06/14/18 01:50; Admin Dose 1 EA; Start 06/13/18 at 02:00 Insulin Aspart (Novolog Insulin Pen) NOVOLOG *MILD* ALGORITHM WITH MEALS BEDTIME SC Last administered on 06/14/18 12:48; Admin Dose 1 UNIT; Start 06/13/18 at 08:00 Sodium Chloride 1,000 ml @ 75 mls/hr [id number] IV Last administered on 06/14/18 13:36; Admin Dose 75 MLS/HR; Start 06/13/18 at 00:00 Metformin HCl (Glucophage) 500 mg BID WITH MEALS PO Last administered on 06/14/18 08:51; Admin Dose 500 MG; Start 06/13/18 at 18:00 Diagnostic Test (Pha) (Accu-Chek) 1 ea AC MEALS AND BEDTIME XX Last administered on 06/14/18 12:25; Admin Dose 1 EA; Start 06/13/18 at 17:30 Linagliptin (Tradjenta) 5 mg DAILY PO Last administered on 06/14/18 08:52; Admin Dose 5 MG; Start 06/14/18 at 09:00 Empaglifozin (Jardiance) 10 mg DAILY@08 PO Last administered on 06/14/18 08:51; Admin Dose 10 MG; Start 06/14/18 at 08:00 Senna (Senokot) 1 tab BID PO Last administered on 06/14/18 08:52; Admin Dose 1 TAB; Start 06/14/18 at 09:00 Insulin Aspart (Novolog Insulin Pen) 18 unit WITH MEALS SC Last administered on 06/14/18 13:35; Admin Dose 18 UNIT; Start 06/14/18 at 08:00 Insulin Glargine (Lantus) 36 units DAILY SC Last administered on 06/14/18 08:54; Admin Dose 36 UNITS; Start 06/14/18 at 09:00 Phenol (Cepastat Lozenge) 1 lozenge Q1H PRN MT SORE THROAT; Start 06/14/18 at 14:30 KULWANT KELLY NP Jun 14, 2018 16:10
[2018-06-14] MEDS: LEVOFLOXACIN 500 MG TAB PO SCH (16:46)
[2018-06-14] MEDS: ACETAMINOPHEN 325 MG TAB PO PRN (18:06)
[2018-06-14] MEDS: ATORVASTATIN 10 MG TAB PO SCH (20:23)
[2018-06-15 01:36] VITALS: BP 130/64; PULSE 95; RESP 16
[2018-06-15] MEDS: ACCU-CHEK XX SCH ×5 (02:00→20:51)
[2018-06-15] MEDS: SOD CHLORIDE 0.9% 1,000 ML IV SCH ×3 (02:07→18:00)
[2018-06-15] MEDS: LEVOFLOXACIN 500 MG TAB PO SCH (05:18)
--- NOTE | 2018-06-15 07:15 | PN ---
DATE: 06/13/2018 SUBJECTIVE: Follow up on pyelonephritis, diabetes, breast cancer. The patient is feeling better. De nies any chest pain or shortness of breath. No flank pain, no reported temperature spike since this morning. The patient is awake, alert. PHYSICAL EXAMINATION: VITAL SIGNS: Temperature 98.4, pulse 88, respirations 20, blood pressure 114/56, O2 saturation 95 on room air. HEENT: No eye discharge or redness. Conjunctivae normal. NECK: Supple, no mass. CHEST: Fairly clear. CARDIOVASCULAR: S1, S2 normal, no murmur. ABDOMEN: Soft and nontender. NEUROLOGIC: The patient is awake, alert, fairly oriented with no gross focal deficit. LABORATORY DATA: Blood culture is growing gram-negative rods. Final pending. Urine culture i s growing Klebsiella pneumoniae sensitive to IV 3rd generation cephalosporin and . Glucose read ing still above 250s. IMPRESSION: 1. Acute pyelonephritis. Will continue IV cefepime. The patient is being seen by Dr. Briggs from i nfectious disease standpoint . 2. The patient was seen by Dr. Fontanez and has been started on Tradjenta, Jardiance, and will be con tinued on Lantus and premeal insulin. 3. Will do followup labs. Dictated By: SONA GO MD AB/NTS Conf#: [id number] DID#: [id number] CC: SONA GO MD;*EndCC*
[2018-06-15 07:24] VITALS: BP 134/61; PULSE 92; RESP 18
[2018-06-15] MEDS: INSULIN ASPART [NOVOLOG] 3 ML PEN SC SCH ×7 (07:50→20:51)
[2018-06-15] MEDS: CHOLECALCIFEROL 2,000 UNIT CAP PO SCH (08:47)
[2018-06-15] MEDS: SENNA TAB PO SCH ×2 (08:47→20:50)
[2018-06-15] MEDS: EMPAGLIFLOZIN 10 MG TABLET PO SCH (08:47)
[2018-06-15] MEDS: LINAGLIPTIN 5 MG TABLET PO SCH (08:47)
[2018-06-15] MEDS: MAGNESIUM OXIDE 400 MG TAB PO SCH ×2 (08:48→20:50)
[2018-06-15] MEDS: metFORMIN 500 MG TAB PO SCH ×2 (08:48→17:51)
[2018-06-15] MEDS: ASPIRIN (EC) 81 MG TAB PO SCH (08:48)
[2018-06-15] MEDS: LETROZOLE 2.5 MG TAB PO SCH (08:48)
[2018-06-15] MEDS: INSULIN GLARGINE [LANTus] (100 UNITS/ML) SYG SC SCH (08:50)
[2018-06-15] MEDS: ENOXAPARIN 40 MG/0.4 ML SYG SC SCH (08:50)
[2018-06-15] MEDS: CEFEPIME 1GM/50 ML (PMX) 50 ML IVPB SCH (09:36)
--- NOTE | 2018-06-15 13:40 | CONS ---
Assessment/Plan Assessment/Plan Problems: (1) Type 2 diabetes mellitus with hyperglycemia Status: Chronic Comment: Excellent glycemic control since yesterday midday. All values in goal range. Cont. current dose of lantus and Novolog along w/ metformin, tradjenta, and jardiance. On d/c pt. should cont. tradjenta and jardiance. Can resume her 70/30 insulin she was taking at home but total daily dose should be 90 units: 55 1 hour before breakfast and 35 1 hour before dinner. Should achieve similar results to what we are seeing here in house. 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 Qualified Codes: E11.65 - Type 2 diabetes mellitus with hyperglycemia; Z79.4 - exterminator termite (current) use of insulin Consultation Date/Type/Reason Admit Date/Time Jun 12, 2018 at 18:47 Initial Consult Date 06/14/18 Type of Consult Endocrinology Reason for Consultation T2DM OOC Requesting Provider: MARLEY URBANO Date/Time of Note DATE: 06/15/18 TIME: 13:37 24 HR Interval Summary Constitutional: no complaints, improved Detailed Summary Respiratory: no complaints Cardiovascular: no complaints Gastrointestinal: no complaints Genitourinary: no complaints Musculoskeletal: no complaints Neurologic: no complaints Exam/Review of Systems Exam Vitals VS - Last 72 Hours, by Label Date Temp Pulse Resp B/P (MAP) Pulse Ox O2 O2 Flow FiO2 Time Delivery Rate 06/15/18 98.0 92 18 134/61 100 Room Air 07:24 (85) 06/15/18 98.4 95 16 130/64 99 Room Air 01:36 (86) 06/14/18 98.5 99 16 132/60 97 Room Air 19:32 (84) 06/14/18 98.1 89 18 119/60 97 Room Air 18:00 (79) 06/14/18 99.0 92 20 124/59 98 15:39 (80) 06/14/18 96 12:36 06/14/18 98.6 95 20 114/55 99 11:38 (74) 06/14/18 88 08:17 06/14/18 98.4 91 20 114/56 95 07:18 (75) 06/14/18 98.6 98 17 120/56 97 04:17 (77) 06/14/18 100 04:00 06/14/18 98.4 95 17 120/59 98 00:30 (79) 06/14/18 111 00:00 06/13/18 105 20:00 06/13/18 98.8 105 17 118/56 98 19:55 (76) 06/13/18 112 16:16 06/13/18 98.7 104 20 103/71 97 15:34 (82) 06/13/18 104 12:07 06/13/18 100.2 11:26 06/13/18 98.5 107 18 105/52 95 11:21 (69) 06/13/18 100.2 95/53 (67) 10:39 06/13/18 102.2 08:43 06/13/18 120 08:31 06/13/18 102.2 120 18 123/60 94 08:16 (81) 06/13/18 98.5 105 18 105/55 97 04:04 (72) 06/13/18 103 04:00 06/13/18 98 00:00 06/12/18 98.0 100 18 99/52 (68) 96 23:44 06/12/18 108 21:27 06/12/18 98.2 108 18 92/55 (67) 93 Room Air 21:00 06/12/18 110 20 102/57 97 20:37 (72) 06/12/18 100.5 120 30 94/56 (69) 95 Room Air 18:45 06/12/18 102.3 129 24 119/60 96 Room Air 17:46 (79) 06/12/18 102.3 17:44 06/12/18 100.3 127 24 134/64 95 Room Air 16:07 (87) 06/12/18 101.2 131 20 141/67 96 15:26 (91) Vital Signs Date Temp Pulse Resp B/P (MAP) Pulse Ox O2 O2 Flow FiO2 Time Delivery Rate 06/15/18 98.0 92 18 134/61 100 Room Air 07:24 (85) Intake and Output 06/14/18 06/14/18 06/15/18 1515:00 23:00 07:00 IntakeIntake Total 1690 ml 1275 ml BalanceBalance 1690 ml 1275 ml Constitutional: alert, oriented, well developed Psych: no complaints, nl mood/affect Respiratory: clear to auscultation, normal air movement Cardiovascular: regular rate and rhythm, nl pulses; No edema, No murmurs/extra sounds, No rub Gastrointestinal: soft, nl liver, spleen, non-tender, bowel sounds; No mass, No rebound or guarding Musculoskeletal: nl extremities to inspection Extremities: normal pulses; No cyanosis, No clubbing, No edema 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, nl mental status, nl speech, nl strength Additional Comments Bedside Glucose - 72 Hours Test 06/12/18 23:08 06/13/18 01:11 06/13/18 02:05 06/13/18 07:56 Bedside 504 386 375 367 Glucose mg/dL (70-220) mg/dL (70-220) mg/dL (70-220) mg/dL (70-220) *H H H H Test 06/13/18 11:53 06/13/18 17:36 06/13/18 20:42 06/14/18 01:42 Bedside 320 309 280 252 Glucose mg/dL (70-220) mg/dL (70-220) mg/dL (70-220) mg/dL (70-220) H H H H Test 06/14/18 07:00 06/14/18 07:25 06/14/18 12:23 06/14/18 17:57 Bedside 283 268 155 127 Glucose mg/dL (70-220) mg/dL (70-220) mg/dL (70-220) mg/dL (70-220) H H Test 06/14/18 20:20 06/15/18 08:35 06/15/18 12:24 Bedside 120 126 126 Glucose mg/dL (70-220) mg/dL (70-220) mg/dL (70-220) Results Result Diagram: 06/15/18 0456 06/15/18 0456 Results 24hrs Laboratory Tests Test 06/14/18 17:57 06/14/18 20:20 06/15/18 04:56 06/15/18 08:35 Bedside Glucose 127 120 126 White Blood Count 9.2 # Red Blood Count 3.99 L Hemoglobin 11.6 L Hematocrit 33.5 L Mean Corpuscular Volume 84.0 Mean Corpuscular 29.1 Hemoglobin Mean Corpuscular 34.6 Hemoglobin Concent Red Cell Distribution 12.8 Width Platelet Count 151 Mean Platelet Volume 11.5 H Immature Granulocytes % 0.900 H Neutrophils % 73.8 Lymphocytes % 13.6 L Monocytes % 10.8 Eosinophils % 0.5 Basophils % 0.4 Nucleated Red Blood 0.0 Cells % Immature Granulocytes # 0.080 H Neutrophils # 6.8 Lymphocytes # 1.3 Monocytes # 1.0 H Eosinophils # 0.1 Basophils # 0.0 Nucleated Red Blood 0.0 Cells # Sodium Level 137 Potassium Level 4.1 Chloride Level 102 Carbon Dioxide Level 23 Anion Gap 12 Blood Urea Nitrogen 14 Creatinine 0.45 Est Glomerular Filtrat > 60 Rate mL/min Glucose Level 126 # Calcium Level 8.8 Test 06/15/18 12:24 Bedside Glucose 126 Medications Medication Current Medications Cefepime HCl 50 ml @ 100 mls/hr BID IVPB Last administered on 06/15/18 09:36; Admin Dose 100 MLS/HR; Start 06/12/18 at 23:00 Acetaminophen (Tylenol Tab) 650 mg Q4H PRN PO MILD PAIN(1-3)OR ELEVATED TEMP Last administered on 06/14/18 18:06; Admin Dose 650 MG; Start 06/12/18 at 23:00 Enoxaparin Sodium (Lovenox) 40 mg DAILY SC Last administered on 06/15/18 08:50; Admin Dose 40 MG; Start 06/13/18 at 09:00 Aspirin (Halfprin) 81 mg DAILY PO Last administered on 06/15/18 08:48; Admin Dose 81 MG; Start 06/13/18 at 09:00 Atorvastatin Calcium (Lipitor) 10 mg HS PO Last administered on 06/14/18 20:23; Admin Dose 10 MG; Start 06/13/18 at 21:00 Cholecalciferol (Vitamin D) 2,000 unit DAILY PO Last administered on 06/15/18 08:47; Admin Dose 2,000 UNIT; Start 06/13/18 at 09:00 Acetaminophen/ Hydrocodone Bitart ([place] (5/325)) 1 tab Q6H PRN PO MODERATE PAIN LEVEL 4-6; Start 06/12/18 at 23:00 Ibuprofen (Motrin) 800 mg Q8H PRN PO PAIN; Start 06/12/18 at 23:00 Letrozole (Femara) 2.5 mg DAILY PO Last administered on 06/15/18 08:48; Admin Dose 2.5 MG; Start 06/13/18 at 09:00 Magnesium Oxide (Mag-Ox 400) 400 mg BID PO Last administered on 06/15/18 08:48; Admin Dose 400 MG; Start 06/13/18 at 09:00 Miscellaneous Information 1 ea NOTE XX ; Start 06/12/18 at 23:30 Glucose (Glutose) 15 gm Q15M PRN PO DECREASED GLUCOSE; Start 06/12/18 at 23:30 Glucose (Glutose) 22.5 gm Q15M PRN PO DECREASED GLUCOSE; Start 06/12/18 at 23:30 Dextrose (D50w Syringe) 25 ml Q15M PRN IV DECREASED GLUCOSE; Start 06/12/18 at 23:30 Dextrose (D50w Syringe) 50 ml Q15M PRN IV DECREASED GLUCOSE; Start 06/12/18 at 23:30 Glucagon (Glucagen) 1 mg Q15M PRN IM DECREASED GLUCOSE; Start 06/12/18 at 23:30 Glucose (Glutose) 15 gm Q15M PRN BUCCAL DECREASED GLUCOSE; Start 06/12/18 at 23:30 Diagnostic Test (Pha) (Accu-Chek) 1 ea 02 XX Last administered on 06/14/18 01:50; Admin Dose 1 EA; Start 06/13/18 at 02:00 Insulin Aspart (Novolog Insulin Pen) NOVOLOG *MILD* ALGORITHM WITH MEALS B EDTIME SC Last administered on 06/14/18 12:48; Admin Dose 1 UNIT; Start 06/13/18 at 08:00 Sodium Chloride 1,000 ml @ 75 mls/hr [id number] IV Last administered on 06/15/18 02:07; Admin Dose 75 MLS/HR; Start 06/13/18 at 00:00 Metformin HCl (Glucophage) 500 mg BID WITH MEALS PO Last administered on 06/15 08:48; Admin Dose 500 MG; Start 06/13/18 at 18:00 Diagnostic Test (Pha) (Accu-Chek) 1 ea AC MEALS AND BEDTIME XX Last administered on 06/15/18 12:24; Admin Dose 1 EA; Start 06/13/18 at 17:30 Linagliptin (Tradjenta) 5 mg DAILY PO Last administered on 06/15/18 08:47; Admin Dose 5 MG; Start 06/14/18 at 09:00 Empaglifozin (Jardiance) 10 mg DAILY@08 PO Last administered on 06/15/18 08:47; Admin Dose 10 MG; Start 06/14/18 at 08:00 Senna (Senokot) 1 tab BID PO Last administered on 06/15/18 08:47; Admin Dose 1 TAB; Start 06/14/18 at 09:00 Insulin Aspart (Novolog Insulin Pen) 18 unit WITH MEALS SC Last administered on 06/15/18 12:25; Admin Dose 18 UNIT; Start 06/14/18 at 08:00 Insulin Glargine (Lantus) 36 units DAILY SC Last administered on 06/15/18 08:50; Admin Dose 36 UNITS; Start 06/14/18 at 09:00 Phenol (Cepastat Lozenge) 1 lozenge Q1H PRN MT SORE THROAT; Start 06/14/18 at 14:30 Levofloxacin (Levaquin) 500 mg DAILY@06 PO Last administered on 06/15/18 05:18; Admin Dose 500 MG; Start 06/14/18 at 16:30 BELEM TRACEY MD Jun 15, 2018 13:40
--- NOTE | 2018-06-15 14:16 | CONS ---
Assessment/Plan Assessment/Plan Hospital Course (Demo Recall) Patient is alert, feels good, no fevers over night Microbiology: Blood culture and urine culture grew Klebsiella pneumonia Chest x-ray on admission revealed right lower lobe infiltrate Antimicrobials: Cefepime, Levaquin Physical examination: Well-developed well-nourished elderly woman who is alert in no distress. Head atraumatic normocephalic neck is supple chest rise symmetrical breath sounds clear diminished bases. Heart: S1-S2. Abdomen soft bowel sounds present. Assessment: 1. Sepsis, present on admission 2. Klebsiella pneumonia UTI 3. Bacteremia, likely secondary to above 4. CAP Plan: Patient is doing much better, pending repeat blood cultures, we will dis continue cefepime, continue oral Levaquin for 2 more weeks, okay discharge home on current antibiotics Consultation Date/Type/Reason Admit Date/Time Jun 12, 2018 at 18:47 Initial Consult Date 06/14/18 Type of Consult id Requesting Provider: MARLEY URBANO Date/Time of Note DATE: 06/15/18 TIME: 14:14 Exam/Review of Systems Exam Vitals Vital Signs Date Temp Pulse Resp B/P (MAP) Pulse Ox O2 O2 Flow FiO2 Time Delivery Rate 06/15/18 98.0 92 18 134/61 100 Room Air 07:24 (85) Intake and Output 06/14/18 06/14/18 06/15/18 1515:00 23:00 07:00 IntakeIntake Total 1690 ml 1275 ml BalanceBalance 1690 ml 1275 ml Results Result Diagram: 06/15/18 0456 06/15/18 0456 Results 24hrs Laboratory Tests Test 06/14/18 17:57 06/14/18 20:20 06/15/18 04:56 06/15/18 08:35 Bedside Glucose 127 120 126 White Blood Count 9.2 # Red Blood Count 3.99 L Hemoglobin 11.6 L Hematocrit 33.5 L Mean Corpuscular Volume 84.0 Mean Corpuscular 29.1 Hemoglobin Mean Corpuscular 34.6 Hemoglobin Concent Red Cell Distribution 12.8 Width Platelet Count 151 Mean Platelet Volume 11.5 H Immature Granulocytes % 0.900 H Neutrophils % 73.8 Lymphocytes % 13.6 L Monocytes % 10.8 Eosinophils % 0.5 Basophils % 0.4 Nucleated Red Blood 0.0 Cells % Immature Granulocytes # 0.080 H Neutrophils # 6.8 Lymphocytes # 1.3 Monocytes # 1.0 H Eosinophils # 0.1 Basophils # 0.0 Nucleated Red Blood 0.0 Cells # Sodium Level 137 Potassium Level 4.1 Chloride Level 102 Carbon Dioxide Level 23 Anion Gap 12 Blood Urea Nitrogen 14 Creatinine 0.45 Est Glomerular Filtrat > 60 Rate mL/min Glucose Level 126 # Calcium Level 8.8 Test 06/15/18 12:24 Bedside Glucose 126 Medications Medication Current Medications Cefepime HCl 50 ml @ 100 mls/hr BID IVPB Last administered on 06/15/18 09:36; Admin Dose 100 MLS/HR; Start 06/12/18 at 23:00 Acetaminophen (Tylenol Tab) 650 mg Q4H PRN PO MILD PAIN(1-3)OR ELEVATED TEMP Last administered on 06/14/18 18:06; Admin Dose 650 MG; Start 06/12/18 at 23:00 Enoxaparin Sodium (Lovenox) 40 mg DAILY SC Last administered on 06/15/18 08:50; Admin Dose 40 MG; Start 06/13/18 at 09:00 Aspirin (Halfprin) 81 mg DAILY PO Last administered on 06/15/18 08:48; Admin Dose 81 MG; Start 06/13/18 at 09:00 Atorvastatin Calcium (Lipitor) 10 mg HS PO Last administered on 06/14/18 20:23; Admin Dose 10 MG; Start 06/13/18 at 21:00 Cholecalciferol (Vitamin D) 2,000 unit DAILY PO Last administered on 06/15/18 08:47; Admin Dose 2,000 UNIT; Start 06/13/18 at 09:00 Acetaminophen/ Hydrocodone Bitart ([place] (5/325)) 1 tab Q6H PRN PO MODERATE PAIN LEVEL 4-6; Start 06/12/18 at 23:00 Ibuprofen (Motrin) 800 mg Q8H PRN PO PAIN; Start 06/12/18 at 23:00 Letrozole (Femara) 2.5 mg DAILY PO Last administered on 06/15/18 08:48; Admin Dose 2.5 MG; Start 06/13/18 at 09:00 Magnesium Oxide (Mag-Ox 400) 400 mg BID PO Last administered on 06/15/18 08:48; Admin Dose 400 MG; Start 06/13/18 at 09:00 Miscellaneous Information 1 ea NOTE XX ; Start 06/12/18 at 23:30 Glucose (Glutose) 15 gm Q15M PRN PO DECREASED GLUCOSE; Start 06/12/18 at 23:30 Glucose (Glutose) 22.5 gm Q15M PRN PO DECREASED GLUCOSE; Start 06/12/18 at 23:30 Dextrose (D50w Syringe) 25 ml Q15M PRN IV DECREASED GLUCOSE; Start 06/12/18 at 23:30 Dextrose (D50w Syringe) 50 ml Q15M PRN IV DECREASED GLUCOSE; Start 06/12/18 at 23:30 Glucagon (Glucagen) 1 mg Q15M PRN IM DECREASED GLUCOSE; Start 06/12/18 at 23:30 Glucose (Glutose) 15 gm Q15M PRN BUCCAL DECREASED GLUCOSE; Start 06/12/18 at 23:30 Diagnostic Test (Pha) (Accu-Chek) 1 ea 02 XX Last administered on 06/14/18at 01:50; Admin Dose 1 EA; Start 06/13/18 at 02:00 Insulin Aspart (Novolog Insulin Pen) NOVOLOG *MILD* ALGORITHM WITH MEALS BEDTIME SC Last administered on 06/14/18 12:48; Admin Dose 1 UNIT; Start 06/13/18 at 08:00 Sodium Chloride 1,000 ml @ 75 mls/hr [id number] IV Last administered on 06/15/18 02:07; Admin Dose 75 MLS/HR; Start 06/13/18 at 00:00 Metformin HCl (Glucophage) 500 mg BID WITH MEALS PO Last administered on 06/15/18 08:48; Admin Dose 500 MG; Start 06/13/18 at 18:00 Diagnostic Test (Pha) (Accu-Chek) 1 ea AC MEALS AND BEDTIME XX Last administered on 06/15/18 12:24; Admin Dose 1 EA; Start 06/13/18 at 17:30 Linagliptin (Tradjenta) 5 mg DAILY PO Last administered on 06/15/18 08:47; Admin Dose 5 MG; Start 06/14/18 at 09:00 Empaglifozin (Jardiance) 10 mg DAILY@08 PO Last administered on 06/15/18 08:47; Admin Dose 10 MG; Start 06/14/18 at 08:00 Senna (Senokot) 1 tab BID PO Last administered on 06/15/18 08:47; Admin Dose 1 TAB; Start 06/14/18 at 09:00 Insulin Aspart (Novolog Insulin Pen) 18 unit WITH MEALS SC Last administered on 06/15/18 12:25; Admin Dose 18 UNIT; Start 06/14/18 at 08:00 Insulin Glargine (Lantus) 36 units DAILY SC Last administered on 06/15/18 08:50; Admin Dose 36 UNITS; Start 06/14/18 at 09:00 Phenol (Cepastat Lozenge) 1 lozenge Q1H PRN MT SORE THROAT; Start 06/14/18 at 14:30 Levofloxacin (Levaquin) 500 mg DAILY@06 PO Last administered on 06/15/18at 05:18; Admin Dose 500 MG; Start 06/14/18 at 16:30 KULWANT KELLY NP Jun 15, 2018 14:16
[2018-06-15 14:25] VITALS: BP 117/60; PULSE 91; RESP 18
--- NOTE | 2018-06-15 17:03 | PN ---
Date/Time of Note Date/Time of Note DATE: 06/15/18 TIME: 16:56 Assessment/Plan VTE [place] [facility] [place]: 3 [place] applied [place] [facility] [place] Yes Pharmacological prophylaxis: LMWH Lines/Catheters IV Catheter Type (from [facility]): Peripheral IV Assessment/Plan Hospital Course Patient complains of constipation, however denies any dysuria, denies fever, will start patient on bowel regimen Assessment/Plan -Sepsis with Klebsiella pneumoniae bacteremia secondary to urinary tract infec tion. Continue Levaquin for 2 weeks, follow-up on repeat blood cultures. -Acute pyelonephritis. Continue Levaquin. Dr. Briggs is following from infectious disease standpoint. -Diabetes mellitus type 2. Continue Jardiance, Tradjenta, Lantus, and insulin. Dr. Fontanez is following in endocrinology consultation. -History of left breast cancer, status post mastectomy Further recommendations based on clinical course. Plan of care discussed with Dr. Costa. Result Diagram: 06/15/18 0456 06/15/18 0456 Results 24hrs Laboratory Tests Test 06/14/18 17:57 06/14/18 20:20 06/15/18 04:56 06/15/18 08:35 Bedside Glucose 127 120 126 White Blood Count 9.2 # Red Blood Count 3.99 L Hemoglobin 11.6 L Hematocrit 33.5 L Mean Corpuscular Volume 84.0 Mean Corpuscular 29.1 Hemoglobin Mean Corpuscular 34.6 Hemoglobin Concent Red Cell Distribution 12.8 Width Platelet Count 151 Mean Platelet Volume 11.5 H Immature Granulocytes % 0.900 H Neutrophils % 73.8 Lymphocytes % 13.6 L Monocytes % 10.8 Eosinophils % 0.5 Basophils % 0.4 Nucleated Red Blood 0.0 Cells % Immature Granulocytes # 0.080 H Neutrophils # 6.8 Lymphocytes # 1.3 Monocytes # 1.0 H Eosinophils # 0.1 Basophils # 0.0 Nucleated Red Blood 0.0 Cells # Sodium Level 137 Potassium Level 4.1 Chloride Level 102 Carbon Dioxide Level 23 Anion Gap 12 Blood Urea Nitrogen 14 Creatinine 0.45 Est Glomerular Filtrat > 60 Rate mL/min Glucose Level 126 # Calcium Level 8.8 Test 06/15/18 12:24 Bedside Glucose 126 Exam/Review of Systems Exam Vitals Vital Signs Date Temp Pulse Resp B/P (MAP) Pulse Ox O2 O2 Flow FiO2 Time Delivery Rate 06/15/18 98.0 91 18 117/60 100 Room Air 14:25 (79) Intake and Output 06/14/18 06/14/18 06/15/18 1515:00 23:00 07:00 IntakeIntake Total 1690 ml 1275 ml BalanceBalance 1690 ml 1275 ml Constitutional: alert, oriented Respiratory: clear to auscultation Cardiovascular: nl pulses Gastrointestinal: soft, non-tender Extremities: normal pulses Skin: other (Status post left mastectomy) Results Results 24hrs Laboratory Tests Test 06/14/18 17:57 06/14/18 20:20 06/15/18 04:56 06/15/18 08:35 Bedside Glucose 127 120 126 White Blood Count 9.2 # Red Blood Count 3.99 L Hemoglobin 11.6 L Hematocrit 33.5 L Mean Corpuscular Volume 84.0 Mean Corpuscular 29.1 Hemoglobin Mean Corpuscular 34.6 Hemoglobin Concent Red Cell Distribution 12.8 Width Platelet Count 151 Mean Platelet Volume 11.5 H Immature Granulocytes % 0.900 H Neutrophils % 73.8 Lymphocytes % 13.6 L Monocytes % 10.8 Eosinophils % 0.5 Basophils % 0.4 Nucleated Red Blood 0.0 Cells % Immature Granulocytes # 0.080 H Neutrophils # 6.8 Lymphocytes # 1.3 Monocytes # 1.0 H Eosinophils # 0.1 Basophils # 0.0 Nucleated Red Blood 0.0 Cells # Sodium Level 137 Potassium Level 4.1 Chloride Level 102 Carbon Dioxide Level 23 Anion Gap 12 Blood Urea Nitrogen 14 Creatinine 0.45 Est Glomerular Filtrat > 60 Rate mL/min Glucose Level 126 # Calcium Level 8.8 Test 06/15/18 12:24 Bedside Glucose 126 Medications Medication Current Medications Acetaminophen (Tylenol Tab) 650 mg Q4H PRN PO MILD PAIN(1-3)OR ELEVATED TEMP Last administered on 06/14/18at 18:06; Admin Dose 650 MG; Start 06/12/18 at 23:00 Enoxaparin Sodium (Lovenox) 40 mg DAILY SC Last administered on 06/15/18at 08:50; Admin Dose 40 MG; Start 06/13/18 at 09:00 Aspirin (Halfprin) 81 mg DAILY PO Last administered on 06/15/18at 08:48; Admin Dose 81 MG; Start 06/13/18 at 09:00 Atorvastatin Calcium (Lipitor) 10 mg HS PO Last administered on 06/14/18 20:23; Admin Dose 10 MG; Start 06/13/18 at 21:00 Cholecalciferol (Vitamin D) 2,000 unit DAILY PO Last administered on 06/15/18 08:47; Admin Dose 2,000 UNIT; Start 06/13/18 at 09:00 Acetaminophen/ Hydrocodone Bitart ([place] (5/325)) 1 tab Q6H PRN PO MODERATE PAIN LEVEL 4-6; Start 06/12/18 at 23:00 Ibuprofen (Motrin) 800 mg Q8H PRN PO PAIN; Start 06/12/18 at 23:00 Letrozole (Femara) 2.5 mg DAILY PO Last administered on 06/15/18 08:48; Admin Dose 2.5 MG; Start 06/13/18 at 09:00 Magnesium Oxide (Mag-Ox 400) 400 mg BID PO Last administered on 06/15/18 08:48; Admin Dose 400 MG; Start 06/13/18 at 09:00 Miscellaneous Information 1 ea NOTE XX ; Start 06/12/18 at 23:30 Glucose (Glutose) 15 gm Q15M PRN PO DECREASED GLUCOSE; Start 06/12/18 at 23:30 Glucose (Glutose) 22.5 gm Q15M PRN PO DECREASED GLUCOSE; Start 06/12/18 at 23:30 Dextrose (D50w Syringe) 25 ml Q15M PRN IV DECREASED GLUCOSE; Start 06/12/18 at 23:30 Dextrose (D50w Syringe) 50 ml Q15M PRN IV DECREASED GLUCOSE; Start 06/12/18 at 23:30 Glucagon (Glucagen) 1 mg Q15M PRN IM DECREASED GLUCOSE; Start 06/12/18 at 23:30 Glucose (Glutose) 15 gm Q15M PRN BUCCAL DECREASED GLUCOSE; Start 06/12/18 at 23:30 Diagnostic Test (Pha) (Accu-Chek) 1 ea 02 XX Last administered on 06/14/18at 01:50; Admin Dose 1 EA; Start 06/13/18 at 02:00 Insulin Aspart (Novolog Insulin Pen) NOVOLOG *MILD* ALGORITHM WITH MEALS BEDTIME SC Last administered on 06/14/18 12:48; Admin Dose 1 UNIT; Start 06/13/18 at 08:00 Sodium Chloride 1,000 ml @ 75 mls/hr [id number] IV Last administered on 06/15/18 02:07; Admin Dose 75 MLS/HR; Start 06/13/18 at 00:00 Metformin HCl (Glucophage) 500 mg BID WITH MEALS PO Last administered on 06/15/18 08:48; Admin Dose 500 MG; Start 06/13/18 at 18:00 Diagnostic Test (Pha) (Accu-Chek) 1 ea AC MEALS AND BEDTIME XX Last ad ministered on 06/15/18 12:24; Admin Dose 1 EA; Start 06/13/18 at 17:30 Linagliptin (Tradjenta) 5 mg DAILY PO Last administered on 06/15/18 08:47; Admin Dose 5 MG; Start 06/14/18 at 09:00 Empaglifozin (Jardiance) 10 mg DAILY@08 PO Last administered on 06/15/18 08:47; Admin Dose 10 MG; Start 06/14/18 at 08:00 Senna (Senokot) 1 tab BID PO Last administered on 06/15/18 08:47; Admin Dose 1 TAB; Start 06/14/18 at 09:00 Insulin Aspart (Novolog Insulin Pen) 18 unit WITH MEALS SC Last administered on 06/15/18 12:25; Admin Dose 18 UNIT; Start 06/14/18 at 08:00 Insulin Glargine (Lantus) 36 units DAILY SC Last administered on 06/15/18 08:50; Admin Dose 36 UNITS; Start 06/14/18 at 09:00 Phenol (Cepastat Lozenge) 1 lozenge Q1H PRN MT SORE THROAT; Start 06/14/18 at 14:30 Levofloxacin (Levaquin) 500 mg DAILY@06 PO Last administered on 06/15/18 05:18; Admin Dose 500 MG; Start 06/14/18 at 16:30 CYNTHIA LAGUNAS Jun 15, 2018 17:03
[2018-06-15] MEDS: ACETAMINOPHEN 325 MG TAB PO PRN (17:59)
[2018-06-15 19:24] VITALS: BP 119/60; PULSE 97; RESP 16
[2018-06-15] MEDS: DOCUSATE SODIUM 100 MG CAP PO SCH (20:50)
[2018-06-15] MEDS: ATORVASTATIN 10 MG TAB PO SCH (20:50)
[2018-06-16 01:44] VITALS: BP 126/68; PULSE 86; RESP 16
[2018-06-16] MEDS: ACCU-CHEK XX SCH ×4 (02:00→17:25)
[2018-06-16] MEDS: LEVOFLOXACIN 500 MG TAB PO SCH (05:00)
[2018-06-16] MEDS: SOD CHLORIDE 0.9% 1,000 ML IV SCH ×2 (06:50→08:00)
[2018-06-16 08:15] VITALS: BP 135/62; PULSE 89; RESP 18
[2018-06-16] MEDS: DOCUSATE SODIUM 100 MG CAP PO SCH (09:01)
[2018-06-16] MEDS: ASPIRIN (EC) 81 MG TAB PO SCH (09:01)
[2018-06-16] MEDS: SENNA TAB PO SCH (09:01)
[2018-06-16] MEDS: MAGNESIUM OXIDE 400 MG TAB PO SCH (09:01)
[2018-06-16] MEDS: EMPAGLIFLOZIN 10 MG TABLET PO SCH (09:01)
[2018-06-16] MEDS: metFORMIN 500 MG TAB PO SCH ×2 (09:01→17:53)
[2018-06-16] MEDS: CHOLECALCIFEROL 2,000 UNIT CAP PO SCH (09:02)
[2018-06-16] MEDS: LINAGLIPTIN 5 MG TABLET PO SCH (09:02)
[2018-06-16] MEDS: LETROZOLE 2.5 MG TAB PO SCH (09:04)
[2018-06-16] MEDS: INSULIN ASPART [NOVOLOG] 3 ML PEN SC SCH ×6 (09:05→17:53)
[2018-06-16] MEDS: INSULIN GLARGINE [LANTus] (100 UNITS/ML) SYG SC SCH (09:07)
[2018-06-16] MEDS: ENOXAPARIN 40 MG/0.4 ML SYG SC SCH (09:07)
--- NOTE | 2018-06-16 12:44 | CONS ---
Assessment/Plan Assessment/Plan Hospital Course (Demo Recall) Sleeping, nad, no fevers over night Microbiology: Blood culture and urine culture grew Klebsiella pneumonia Chest x-ray on admission revealed right lower lobe infiltrate Antimicrobials: Levaquin Physical examination: Well-developed well-nourished elderly woman who is alert in no distress. Head atraumatic normocephalic neck is supple chest rise symmetrical breath sounds clear diminished bases. Heart: S1-S2. Abdomen soft bowel sounds present. Assessment: 1. Sepsis, present on admission 2. Klebsiella pneumonia UTI 3. Bacteremia secondary to above 4. CAP Plan: Stable, repeat blood cultures negative, okay to discharge on oral Levaquin for 2 more weeks Consultation Date/Type/Reason Admit Date/Time Jun 12, 2018 at 18:47 Initial Consult Date 06/14/18 Type of Consult id Requesting Provider: MARLEY URBANO Date/Time of Note DATE: 06/16/18 TIME: 12:43 Exam/Review of Systems Exam Vitals Vital Signs Date Temp Pulse Resp B/P (MAP) Pulse Ox O2 O2 Flow FiO2 Time Delivery Rate 06/16/18 98.0 89 18 135/62 95 Room Air 08:15 (86) Intake and Output 06/15/18 06/15/18 06/16/18 1515:00 23:00 07:00 IntakeIntake Total 350 ml 1625 ml 800 ml BalanceBalance 350 ml 1625 ml 800 ml Results Result Diagram: 06/16/18 0441 06/16/18 0441 Results 24hrs Laboratory Tests Test 06/15/18 17:49 06/15/18 20:49 06/16/18 04:41 06/16/18 08:58 Bedside Glucose 145 94 167 White Blood Count 8.9 Red Blood Count 3.91 L Hemoglobin 11.2 L Hematocrit 33.1 L Mean Corpuscular Volume 84.7 Mean Corpuscular 28.6 L Hemoglobin Mean Corpuscular 33.8 Hemoglobin Concent Red Cell Distribution 13.1 Width Platelet Count 193 # Mean Platelet Volume 10.9 H Immature Granulocytes % 1.000 H Neutrophils % 70.1 Lymphocytes % 16.3 Monocytes % 11.3 H Eosinophils % 1.0 Basophils % 0.3 Nucleated Red Blood 0.0 Cells % Immature Granulocytes # 0.090 H Neutrophils # 6.2 Lymphocytes # 1.5 Monocytes # 1.0 H Eosinophils # 0.1 Basophils # 0.0 Nucleated Red Blood 0.0 Cells # Sodium Level 139 Potassium Level 3.8 Chloride Level 103 Carbon Dioxide Level 24 Anion Gap 12 Blood Urea Nitrogen 14 Creatinine 0.47 Est Glomerular Filtrat > 60 Rate mL/min Glucose Level 135 Calcium Level 9.2 Medications Medication Current Medications Acetaminophen (Tylenol Tab) 650 mg Q4H PRN PO MILD PAIN(1-3)OR ELEVATED TEMP Last administered on 06/15/18 17:59; Admin Dose 650 MG; Start 06/12/18 at 23:00 Enoxaparin Sodium (Lovenox) 40 mg DAILY SC Last administered on 06/16/18 09:07; Admin Dose 40 MG; Start 06/13/18 at 09:00 Aspirin (Halfprin) 81 mg DAILY PO Last administered on 06/16/18 09:01; Admin Dose 81 MG; Start 06/13/18 at 09:00 Atorvastatin Calcium (Lipitor) 10 mg HS PO Last administered on 06/15/18 20:50; Admin Dose 10 MG; Start 06/13/18 at 21:00 Cholecalciferol (Vitamin D) 2,000 unit DAILY PO Last administered on 06/16/18 09:02; Admin Dose 2,000 UNIT; Start 06/13/18 at 09:00 Acetaminophen/ Hydrocodone Bitart ([place] (5/325)) 1 tab Q6H PRN PO MODERATE PAIN LEVEL 4-6; Start 06/12/18 at 23:00 Ibuprofen (Motrin) 800 mg Q8H PRN PO PAIN; Start 06/12/18 at 23:00 Letrozole (Femara) 2.5 mg DAILY PO Last administered on 06/16/18 09:04; Admin Dose 2.5 MG; Start 06/13/18 at 09:00 Magnesium Oxide (Mag-Ox 400) 400 mg BID PO Last administered on 06/16/18 09:01; Admin Dose 400 MG; Start 06/13/18 at 09:00 Miscellaneous Information 1 ea NOTE XX ; Start 06/12/18 at 23:30 Glucose (Glutose) 15 gm Q15M PRN PO DECREASED GLUCOSE; Start 06/12/18 at 23:30 Glucose (Glutose) 22.5 gm Q15M PRN PO DECREASED GLUCOSE; Start 06/12/18 at 23:30 Dextrose (D50w Syringe) 25 ml Q15M PRN IV DECREASED GLUCOSE; Start 06/12/18 at 23:30 Dextrose (D50w Syringe) 50 ml Q15M PRN IV DECREASED GLUCOSE; Start 06/12/18 at 23:30 Glucagon (Glucagen) 1 mg Q15M PRN IM DECREASED GLUCOSE; Start 06/12/18 at 23:30 Glucose (Glutose) 15 gm Q15M PRN BUCCAL DECREASED GLUCOSE; Start 06/12/18 at 23:30 Diagnostic Test (Pha) (Accu-Chek) 1 ea 02 XX Last administered on 06/14/18 01:50; Admin Dose 1 EA; Start 06/13/18 at 02:00 Insulin Aspart (Novolog Insulin Pen) NOVOLOG *MILD* ALGORITHM WITH MEALS BEDTIME SC Last administered on 06/16/18 09:05; Admin Dose 1 UNIT; Start 06/13/18 at 08:00 Sodium Chloride 1,000 ml @ 75 mls/hr [id number] IV Last administered on 06/16/18 06:50; Admin Dose 75 MLS/HR; Start 06/13/18 at 00:00 Metformin HCl (Glucophage) 500 mg BID WITH MEALS PO Last administered on 06/16/18 09:01; Admin Dose 500 MG; Start 06/13/18 at 18:00 Diagnostic Test (Pha) (Accu-Chek) 1 ea AC MEALS AND BEDTIME XX Last administered on 06/16/18 09:00; Admin Dose 1 EA; Start 06/13/18 at 17:30 Linagliptin (Tradjenta) 5 mg DAILY PO Last administered on 06/16/18 09:02; Admin Dose 5 MG; Start 06/14/18 at 09:00 Empaglifozin (Jardiance) 10 mg DAILY@08 PO Last administered on 06/16/18 09:01; Admin Dose 10 MG; Start 06/14/18 at 08:00 Senna (Senokot) 1 tab BID PO Last administered on 06/16/18 09:01; Admin Dose 1 TAB; Start 06/14/18 at 09:00 Insulin Aspart (Novolog Insulin Pen) 18 unit WITH MEALS SC Last administered on 06/16/18 09:06; Admin Dose 18 UNIT; Start 06/14/18 at 08:00 Insulin Glargine (Lantus) 36 units DAILY SC Last administered on 06/16/18at 09:07; Admin Dose 36 UNITS; Start 06/14/18 at 09:00 Phenol (Cepastat Lozenge) 1 lozenge Q1H PRN MT SORE THROAT; Start 06/14/18 at 14:30 Levofloxacin (Levaquin) 500 mg DAILY@06 PO Last administered on 06/16/18at 05:00; Admin Dose 500 MG; Start 06/14/18 at 16:30 Docusate Sodium (Colace) 100 mg BID PO Last administered on 06/16/18at 09:01; Admin Dose 100 MG; Start 06/15/18 at 21:00 KULWANT KELLY NP Jun 16, 2018 12:44
--- NOTE | 2018-06-16 13:41 | CONS ---
Assessment/Plan Assessment/Plan Problems: (1) Type 2 diabetes mellitus with hyperglycemia Status: Chronic Comment: Excellent glycemic control continues. All values w/i goal range. Cont. metformin, jardiance, tradjenta, and current doses of insulin. Will follow with you. 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 Qualified Codes: E11.65 - Type 2 diabetes mellitus with hyperglycemia; Z79.4 - group home (current) use of insulin Consultation Date/Type/Reason Admit Date/Time Jun 12, 2018 at 18:47 Initial Consult Date 06/14/18 Type of Consult Endocrinology Reason for Consultation [id number] Requesting Provider: MARLEY URBANO Date/Time of Note DATE: 06/16/18 TIME: 13:39 24 HR Interval Summary Constitutional: no complaints, improved Detailed Summary Respiratory: no complaints Cardiovascular: no complaints Gastrointestinal: pain (R side) Genitourinary: no complaints Musculoskeletal: no complaints Neurologic: no complaints Exam/Review of Systems Exam Vitals VS - Last 72 Hours, by Label Date Temp Pulse Resp B/P (MAP) Pulse Ox O2 O2 Flow FiO2 Time Delivery Rate 06/16/18 98.0 89 18 135/62 95 Room Air 08:15 (86) 06/16/18 98.0 86 16 126/68 98 Room Air 01:44 (87) 06/15/18 98.6 97 16 119/60 97 Room Air 19:24 (79) 06/15/18 98.0 91 18 117/60 100 Room Air 14:25 (79) 06/15/18 98.0 92 18 134/61 100 Room Air 07:24 (85) 06/15/18 98.4 95 16 130/64 99 Room Air 01:36 (86) 06/14/18 98.5 99 16 132/60 97 Room Air 19:32 (84) 06/14/18 98.1 89 18 119/60 97 Room Air 18:00 (79) 06/14/18 99.0 92 20 124/59 98 15:39 (80) 06/14/18 96 12:36 06/14/18 98.6 95 20 114/55 99 11:38 (74) 06/14/18 88 08:17 06/14/18 98.4 91 20 114/56 95 07:18 (75) 06/14/18 98.6 98 17 120/56 97 04:17 (77) 06/14/18 100 04:00 06/14/18 98.4 95 17 120/59 98 00:30 (79) 06/14/18 111 00:00 06/13/18 105 20:00 06/13/18 98.8 105 17 118/56 98 19:55 (76) 06/13/18 112 16:16 06/13/18 98.7 104 20 103/71 97 15:34 (82) Vital Signs Date Temp Pulse Resp B/P (MAP) Pulse Ox O2 O2 Flow FiO2 Time Delivery Rate 06/16/18 98.0 89 18 135/62 95 Room Air 08:15 (86) Intake and Output 06/15/18 06/15/18 06/16/18 1515:00 23:00 07:00 IntakeIntake Total 350 ml 1625 ml 800 ml BalanceBalance 350 ml 1625 ml 800 ml Constitutional: alert, oriented, well developed Psych: no complaints, nl mood/affect Respiratory: clear to auscultation, normal air movement Cardiovascular: regular rate and rhythm, nl pulses; No edema, No murmurs/extra sounds, No rub Gastrointestinal: soft, nl liver, spleen, bowel sounds, tender (R hypochondrium); No non-tender, No mass, No rebound or guarding Musculoskeletal: nl extremities to inspection Extremities: normal pulses; No cyanosis, No clubbing, No edema Neurological: 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, nl mental status, nl speech, nl strength Additional Comments Bedside Glucose - 72 Hours Test 06/13/18 17:36 06/13/18 20:42 06/14/18 01:42 06/14/18 07:00 Bedside 309 280 252 283 Glucose mg/dL (70-220) mg/dL (70-220) mg/dL (70-220) mg/dL (70-220) H H H H Test 06/14/18 07:25 06/14/18 12:23 06/14/18 17:57 06/14/18 20:20 Bedside 268 155 127 120 Glucose mg/dL (70-220) mg/dL (70-220) mg/dL (70-220) mg/dL (70-220) H Test 06/15/18 08:35 06/15/18 12:24 06/15/18 17:49 06/15/18 20:49 Bedside 126 126 145 94 Glucose mg/dL (70-220) mg/dL (70-220) mg/dL (70-220) mg/dL (70-220) Test 06/16/18 08:58 06/16/18 13:06 Bedside 167 116 Glucose mg/dL (70-220) mg/dL (70-220) Results Result Diagram: 06/16/18 0441 06/16/18 0441 Results 24hrs Laboratory Tests Test 06/15/18 17:49 06/15/18 20:49 06/16/18 04:41 06/16/18 08:58 Bedside Glucose 145 94 167 White Blood Count 8.9 Red Blood Count 3.91 L Hemoglobin 11.2 L Hematocrit 33.1 L Mean Corpuscular Volume 84.7 Mean Corpuscular 28.6 L Hemoglobin Mean Corpuscular 33.8 Hemoglobin Concent Red Cell Distribution 13.1 Width Platelet Count 193 # Mean Platelet Volume 10.9 H Immature Granulocytes % 1.000 H Neutrophils % 70.1 Lymphocytes % 16.3 Monocytes % 11.3 H Eosinophils % 1.0 Basophils % 0.3 Nucleated Red Blood 0.0 Cells % Immature Granulocytes # 0.090 H Neutrophils # 6.2 Lymphocytes # 1.5 Monocytes # 1.0 H Eosinophils # 0.1 Basophils # 0.0 Nucleated Red Blood 0.0 Cells # Sodium Level 139 Potassium Level 3.8 Chloride Level 103 Carbon Dioxide Level 24 Anion Gap 12 Blood Urea Nitrogen 14 Creatinine 0.47 Est Glomerular Filtrat > 60 Rate mL/min Glucose Level 135 Calcium Level 9.2 Test 06/16/18 13:06 Bedside Glucose 116 Medications Medication Current Medications Acetaminophen (Tylenol Tab) 650 mg Q4H PRN PO MILD PAIN(1-3)OR ELEVATED TEMP Last administered on 06/15/18at 17:59; Admin Dose 650 MG; Start 06/12/18 at 23:00 Enoxaparin Sodium (Lovenox) 40 mg DAILY SC Last administered on 06/16/18at 09:07; Admin Dose 40 MG; Start 06/13/18 at 09:00 Aspirin (Halfprin) 81 mg DAILY PO Last administered on 06/16/18at 09:01; Admin Dose 81 MG; Start 06/13/18 at 09:00 Atorvastatin Calcium (Lipitor) 10 mg HS PO Last administered on 06/15/18at 20:50; Admin Dose 10 MG; Start 06/13/18 at 21:00 Cholecalciferol (Vitamin D) 2,000 unit DAILY PO Last administered on 06/16/18 09:02; Admin Dose 2,000 UNIT; Start 06/13/18 at 09:00 Acetaminophen/ Hydrocodone Bitart ([place] (5/325)) 1 tab Q6H PRN PO MODERATE PAIN LEVEL 4-6; Start 06/12/18 at 23:00 Ibuprofen (Motrin) 800 mg Q8H PRN PO PAIN; Start 06/12/18 at 23:00 Letrozole (Femara) 2.5 mg DAILY PO Last administered on 06/16/18 09:04; Admin Dose 2.5 MG; Start 06/13/18 at 09:00 Magnesium Oxide (Mag-Ox 400) 400 mg BID PO Last administered on 06/16/18 09:01; Admin Dose 400 MG; Start 06/13/18 at 09:00 Miscellaneous Information 1 ea NOTE XX ; Start 06/12/18 at 23:30 Glucose (Glutose) 15 gm Q15M PRN PO DECREASED GLUCOSE; Start 06/12/18 at 23:30 Glucose (Glutose) 22.5 gm Q15M PRN PO DECREASED GLUCOSE; Start 06/12/18 at 23:30 Dextrose (D50w Syringe) 25 ml Q15M PRN IV DECREASED GLUCOSE; Start 06/12/18 at 23:30 Dextrose (D50w Syringe) 50 ml Q15M PRN IV DECREASED GLUCOSE; Start 06/12/18 at 23:30 Glucagon (Glucagen) 1 mg Q15M PRN IM DECREASED GLUCOSE; Start 06/12/18 at 23:30 Glucose (Glutose) 15 gm Q15M PRN BUCCAL DECREASED GLUCOSE; Start 06/12/18 at 23:30 Diagnostic Test (Pha) (Accu-Chek) 1 ea 02 XX Last administered on 06/14/18at 01:50; Admin Dose 1 EA; Start 06/13/18 at 02:00 Insulin Aspart (Novolog Insulin Pen) NOVOLOG *MILD* ALGORITHM WITH MEALS BEDTIME SC Last administered on 06/16/18 09:05; Admin Dose 1 UNIT; Start 06/13/18 at 08:00 Sodium Chloride 1,000 ml @ 75 mls/hr [id number] IV Last administered on 06/16/18 06:50; Admin Dose 75 MLS/HR; Start 06/13/18 at 00:00 Metformin HCl (Glucophage) 500 mg BID WITH MEALS PO Last administered on 06/16/18 09:01; Admin Dose 500 MG; Start 06/13/18 at 18:00 Diagnostic Test (Pha) (Accu-Chek) 1 ea AC MEALS AND BEDTIME XX Last administ ered on 06/16/18 13:00; Admin Dose 1 EA; Start 06/13/18 at 17:30 Linagliptin (Tradjenta) 5 mg DAILY PO Last administered on 06/16/18 09:02; Admin Dose 5 MG; Start 06/14/18 at 09:00 Empaglifozin (Jardiance) 10 mg DAILY@08 PO Last administered on 06/16/18 09:01; Admin Dose 10 MG; Start 06/14/18 at 08:00 Senna (Senokot) 1 tab BID PO Last administered on 06/16/18 09:01; Admin Dose 1 TAB; Start 06/14/18 at 09:00 Insulin Aspart (Novolog Insulin Pen) 18 unit WITH MEALS SC Last administered on 06/16/18 13:11; Admin Dose 18 UNIT; Start 06/14/18 at 08:00 Insulin Glargine (Lantus) 36 units DAILY SC Last administered on 06/16/18 09:07; Admin Dose 36 UNITS; Start 06/14/18 at 09:00 Phenol (Cepastat Lozenge) 1 lozenge Q1H PRN MT SORE THROAT; Start 06/14/18 at 14:30 Levofloxacin (Levaquin) 500 mg DAILY@06 PO Last administered on 06/16/18 05:00; Admin Dose 500 MG; Start 06/14/18 at 16:30 Docusate Sodium (Colace) 100 mg BID PO Last administered on 06/16/18 09:01; Admin Dose 100 MG; Start 06/15/18 at 21:00 BELEM TRACEY MD Jun 16, 2018 13:40
[2018-06-16 14:34] VITALS: BP 116/55; PULSE 91; RESP 18
[2018-06-16] MEDS ORDERED: LINA5TAB PO (15:53)
[2018-06-16] MEDS ORDERED: LEVO500T48 PO (15:53)
[2018-06-16] MEDS ORDERED: Insulin Glargine SC (15:53)
[2018-06-16] MEDS ORDERED: EMPA10TA PO (15:53)
[2018-06-16] MEDS ORDERED: METF-849 PO (15:53)
[2018-06-16] MEDS ORDERED: SENN-36 PO (15:53)
[2018-06-16] MEDS ORDERED: NOVO3I SC (15:53)
== END 2018-06-16 18:15 | disposition home or self-care (01) | DRG 871 ==
LOC: E/R 15:24 → 6WM 18:47 → MS1 06-14 17:26
PROVIDERS: ADMIT Internal Medicine; ATTEND Internal Medicine
PROC: 4A033R1 Measurement of Arterial Saturation, Peripheral, Percutaneous Approach (ICD-10-PCS; principal; 2018-06-12)
DX: A41.50 Gram-negative sepsis, unspecified (principal); J18.1 Lobar pneumonia, unspecified organism; E87.1 Hypo-osmolality and hyponatremia; E87.2 Acidosis; N10 Acute pyelonephritis; E86.0 Dehydration; R65.20 Severe sepsis without septic shock; E11.65 Type 2 diabetes mellitus with hyperglycemia; E78.5 Hyperlipidemia, unspecified; B96.1 Klebsiella pneumoniae [K. pneumoniae] as the cause of diseases classified elsewhere; I10 Essential (primary) hypertension; Z79.4 Long term (current) use of insulin; Z79.82 Long term (current) use of aspirin; Z85.3 Personal history of malignant neoplasm of breast
CPT/HCPCS: 36415; 71045; 80048; 80053; 81001; 82803; 82947; 82962; 83036; 83605; 83735; 84100; 84484; 85025; 85610; 85730; 87040; 87086; 87400; 93005; 96365; 96366; 96375; J0692; J1650; J1815; J1885; J3370; J7030

== ENCOUNTER 2018-12-02 16:57 | Inpatient (IN) | payer OTHER ==
[~2018-12-02] VITALS: Ht 157.5 cm; Wt 64.2 kg
[~2018-12-02 16:57] MED LIST changes: -ACET500C5 PO; +AMLO-145 PO; -ASPI-1044 PO; +ASPI-817 PO; +ATOR10TA65 PO; +CARV6.2579 PO; -CEPH250S33 PO; +CHOL200073 PO; +EMPA10TA PO; -HYDR-4011 PO; +INSU100C SQ; +INSU100I33 SC; +Insulin Glargine SC; -LANT3I SC; +LETR2.5T PO; +LEVO500T48 PO; +LINA5TAB PO; +LISI-471 PO; +MAGN400T27 PO; +METF-849 PO; +METF100010 PO; -MTF1000T PO; +NITR0.4T32 SL; +NORT25CA PO; -QUIN10TA PO; +SENN-36 PO
[2018-12-02] MEDS ORDERED: ONDANSETRON 4 MG INJ IV STA (17:46)
[2018-12-02] MEDS ORDERED: morphine 2 MG INJ IV STA (17:46)
[2018-12-02] MEDS ORDERED: SOD CHLORIDE 0.9% 1,000 ML IV ONE (18:00)
[2018-12-02] MEDS ORDERED: ALBUTEROL 0.5% (NEB) 2.5 MG/0.5 ML AMP INH STA (18:41)
[2018-12-02] MEDS ORDERED: INSULIN REGULAR, HUMAN 100 UNIT/1 ML 3ML VIAL IVP STA (18:41)
[2018-12-02] MEDS ORDERED: DEXTROSE 50% 50 ML SYRINGE IV PRN (19:00)
[2018-12-02] MEDS ORDERED: ACETAMINOPHEN 325 MG TAB PO ONE (19:00)
[2018-12-02] MEDS ORDERED: PIPER-TAZO 2.25 GM (PMX) 50 ML IVPB ONE (19:00)
[2018-12-02 22:03] VITALS: Ht 157.5 cm; Wt 64.2 kg
[2018-12-02 22:12] VITALS: BP 143/65; PULSE 92; RESP 17
[2018-12-02] MEDS ORDERED: ONDANSETRON 4 MG INJ IV PRN (22:30)
[2018-12-02] MEDS: SOD CHLORIDE 0.9% 1,000 ML IV SCH (22:30)
[2018-12-02] MEDS ORDERED: NPH, HUMAN INSULIN ISOPHANE 3ML VIAL SC ONE (22:30)
[2018-12-02] MEDS ORDERED: NA POLYST SULFON 15 GM/60 ML BTL PO ONE (22:30)
[2018-12-02] MEDS ORDERED: NITROGLYCERIN (SL) 0.4 MG TAB SL PRN (22:30)
[2018-12-02] MEDS ORDERED: INSULIN REGULAR, HUMAN 100 UNIT/1 ML 3ML VIAL SC ONE (23:00)
[2018-12-02] MEDS: CEFTRIAXONE 1 GM/50 ML (PMX) 50 ML IVPB SCH (23:49)
[2018-12-03] VITALS: BP 134/64; PULSE 80; RESP 17
[2018-12-03] MEDS: INSULIN GLARGINE [LANTus] (100 UNITS/ML) SYG SC SCH ×2 (00:12→20:37)
[2018-12-03] MEDS ORDERED: GLUCOSE GEL 15 GRAM TUBE PO PRN ×2 (01:30)
[2018-12-03] MEDS ORDERED: DEXTROSE 50% 50 ML SYRINGE IV PRN ×2 (01:30)
[2018-12-03] MEDS ORDERED: GLUCOSE GEL 15 GRAM TUBE BUCCAL PRN (01:30)
[2018-12-03] MEDS ORDERED: GLUCAGON 1 MG INJ IM PRN (01:30)
[2018-12-03] MEDS: ACCU-CHEK XX SCH (02:30)
[2018-12-03] MEDS ORDERED: INSULIN ASPART [NOVOLOG] 3 ML PEN SC ONE (03:30)
[2018-12-03 04:00] VITALS: BP 128/60; PULSE 85; RESP 18
[2018-12-03] MEDS ORDERED: ACCU-CHEK XX ONE (05:30)
[2018-12-03 07:36] VITALS: BP 125/79; PULSE 98; RESP 19
[2018-12-03] MEDS: INSULIN ASPART [NOVOLOG] 3 ML PEN SC SCH ×7 (07:37→20:38)
[2018-12-03] MEDS: ASPIRIN (EC) 81 MG TAB PO SCH (08:48)
[2018-12-03] MEDS: SOD CHLORIDE 0.9% 1,000 ML IV SCH ×2 (08:48→17:39)
[2018-12-03] MEDS: ENOXAPARIN 30 MG/0.3 ML SYG SC SCH (08:53)
[2018-12-03] MEDS: morphine 2 MG INJ IV PRN (08:54)
[2018-12-03 11:07] VITALS: BP 120/60; PULSE 80; RESP 18
[2018-12-03 15:29] VITALS: BP 142/67; PULSE 76; RESP 18
[2018-12-03 19:33] VITALS: BP 131/63; PULSE 88; RESP 18
[2018-12-03] MEDS ORDERED: INSULIN GLARGINE [LANTus] (100 UNITS/ML) SYG SC SCH (20:00)
[2018-12-03] MEDS: CEFTRIAXONE 1 GM/50 ML (PMX) 50 ML IVPB SCH (23:34)
[2018-12-04] VITALS (7 sets, daily range): BP systolic 130–169; BP diastolic 63–74; PULSE 65–77; RESP 18–19
[2018-12-04] MEDS: ACCU-CHEK XX SCH (02:22)
[2018-12-04] MEDS: SOD CHLORIDE 0.9% 1,000 ML IV SCH ×2 (05:03→14:30)
[2018-12-04] MEDS: INSULIN ASPART [NOVOLOG] 3 ML PEN SC SCH ×7 (07:56→21:06)
[2018-12-04] MEDS: ENOXAPARIN 30 MG/0.3 ML SYG SC SCH (09:28)
[2018-12-04] MEDS ORDERED: REGADENOSON 0.4 MG/5 ML SYG ONE (11:34)
[2018-12-04] MEDS: ASPIRIN (EC) 81 MG TAB PO SCH (14:48)
[2018-12-04] MEDS: ACETAMINOPHEN 325 MG TAB PO PRN (16:53)
[2018-12-04] MEDS: INSULIN GLARGINE [LANTus] (100 UNITS/ML) SYG SC SCH (21:07)
[2018-12-04] MEDS ORDERED: AMLODIPINE 5 MG TAB GTB SCH (22:30)
[2018-12-04] MEDS: SOD CHLORIDE 0.45% 1,000 ML IV SCH (23:05)
[2018-12-04] MEDS: AMLODIPINE 5 MG TAB PO SCH (23:05)
[2018-12-05] MEDS: ACCU-CHEK XX SCH (02:00)
[2018-12-05 04:00] VITALS: BP 131/65; PULSE 67; RESP 18
[2018-12-05 07:14] VITALS: BP 135/64; PULSE 72; RESP 18
[2018-12-05] MEDS: INSULIN ASPART [NOVOLOG] 3 ML PEN SC SCH ×7 (08:00→21:00)
[2018-12-05] MEDS ORDERED: AMLODIPINE 5 MG TAB PO SCH (09:00)
[2018-12-05] MEDS: ASPIRIN (EC) 81 MG TAB PO SCH (09:10)
[2018-12-05] MEDS: AMLODIPINE 5 MG TAB PO SCH ×2 (09:11→20:22)
[2018-12-05] MEDS: ENOXAPARIN 30 MG/0.3 ML SYG SC SCH (09:15)
[2018-12-05 11:01] VITALS: BP 147/66; PULSE 72; RESP 18
[2018-12-05 16:41] VITALS: BP 125/79; PULSE 72; RESP 18
[2018-12-05] MEDS: SOD CHLORIDE 0.45% 1,000 ML IV SCH (17:22)
[2018-12-05] MEDS: ACETAMINOPHEN 325 MG TAB PO PRN (17:22)
[2018-12-05 19:20] VITALS: BP 155/64; PULSE 60; RESP 18
[2018-12-05] MEDS: INSULIN GLARGINE [LANTus] (100 UNITS/ML) SYG SC SCH (20:33)
[2018-12-06 00:27] VITALS: BP 110/74; PULSE 66; RESP 16
[2018-12-06] MEDS: ACCU-CHEK XX SCH (02:44)
[2018-12-06 03:59] VITALS: BP 117/59; PULSE 67; RESP 18
[2018-12-06 07:11] VITALS: BP 132/74; PULSE 65; RESP 18
[2018-12-06] MEDS: INSULIN ASPART [NOVOLOG] 3 ML PEN SC SCH ×7 (07:39→20:31)
[2018-12-06] MEDS: AMLODIPINE 5 MG TAB PO SCH ×2 (08:31→20:31)
[2018-12-06] MEDS: ASPIRIN (EC) 81 MG TAB PO SCH (08:31)
[2018-12-06] MEDS: ENOXAPARIN 30 MG/0.3 ML SYG SC SCH (08:35)
[2018-12-06 11:27] VITALS: BP 120/79; PULSE 79; RESP 18
[2018-12-06 15:31] VITALS: BP 146/65; PULSE 73; RESP 18
[2018-12-06] MEDS: SOD CHLORIDE 0.45% 1,000 ML IV SCH (17:14)
[2018-12-06 20:00] VITALS: BP 156/70; PULSE 67; RESP 18
[2018-12-06] MEDS: INSULIN GLARGINE [LANTus] (100 UNITS/ML) SYG SC SCH (20:00)
[2018-12-06] MEDS ORDERED: INSULIN GLARGINE [LANTus] (100 UNITS/ML) SYG SC ONE (21:00)
[2018-12-06] MEDS: ACETAMINOPHEN 325 MG TAB PO PRN (22:33)
[2018-12-07] VITALS (7 sets, daily range): BP systolic 125–157; BP diastolic 64–88; PULSE 65–79; RESP 18
[2018-12-07] MEDS: ACCU-CHEK XX SCH (02:51)
[2018-12-07] MEDS: INSULIN ASPART [NOVOLOG] 3 ML PEN SC SCH ×7 (08:10→21:22)
[2018-12-07] MEDS: ASPIRIN (EC) 81 MG TAB PO SCH (09:02)
[2018-12-07] MEDS: AMLODIPINE 5 MG TAB PO SCH ×2 (09:02→21:03)
[2018-12-07] MEDS: ENOXAPARIN 30 MG/0.3 ML SYG SC SCH (09:09)
[2018-12-07] MEDS: SOD CHLORIDE 0.45% 1,000 ML IV SCH (16:21)
[2018-12-07] MEDS: ACETAMINOPHEN 325 MG TAB PO PRN ×2 (16:29→21:16)
[2018-12-07] MEDS: INSULIN GLARGINE [LANTus] (100 UNITS/ML) SYG SC SCH (20:00)
[2018-12-08] MEDS: ACCU-CHEK XX SCH (02:00)
[2018-12-08 03:49] VITALS: BP 141/64; PULSE 67; RESP 18
[2018-12-08 07:13] VITALS: BP 136/64; PULSE 65; RESP 20
[2018-12-08] MEDS: INSULIN ASPART [NOVOLOG] 3 ML PEN SC SCH ×6 (07:57→17:03)
[2018-12-08] MEDS: AMLODIPINE 5 MG TAB PO SCH (08:54)
[2018-12-08] MEDS: ASPIRIN (EC) 81 MG TAB PO SCH (08:54)
[2018-12-08] MEDS: ENOXAPARIN 30 MG/0.3 ML SYG SC SCH (08:58)
[2018-12-08] MEDS: morphine 2 MG INJ IV PRN (11:03)
[2018-12-08] MEDS ORDERED: MAGNESIUM HYDROXIDE 30ML CUP PO PRN (11:30)
[2018-12-08] MEDS ORDERED: DOCUSATE SODIUM 100 MG CAP PO SCH (11:30)
[2018-12-08] MEDS ORDERED: BISACODYL (EC) 5 MG TAB PO PRN (11:30)
[2018-12-08 11:52] VITALS: BP 128/60; PULSE 63; RESP 20
[2018-12-08 15:40] VITALS: BP 118/56; PULSE 63; RESP 20
== END 2018-12-08 18:43 | disposition home or self-care (01) | DRG 683 ==
LOC: E/R 16:57 → 6WM 19:19
PROVIDERS: ADMIT Internal Medicine; ATTEND Internal Medicine
DX: N17.9 Acute kidney failure, unspecified (principal); N39.0 Urinary tract infection, site not specified; E87.1 Hypo-osmolality and hyponatremia; R07.9 Chest pain, unspecified; E11.65 Type 2 diabetes mellitus with hyperglycemia; E87.5 Hyperkalemia; Z85.3 Personal history of malignant neoplasm of breast
CPT/HCPCS: 36415; 71045; 73562; 76705; 78452; 80048; 80061; 80076; 81001; 81003; 82550; 82553; 82962; 83036; 83690; 84484; 85025; 87086; 93005; 93017; 93306; 93971; 94664; 96374; 96375; A9500; A9505; J0696; J1650; J1815; J2270; J2405; J2543; J2785; J7030